=== PATIENT | female | born 1935 | race Caucasian/White ===

== ENCOUNTER 2022-02-18 07:32 | Outpatient (CLI) | payer MEDICARE, SELFPAY ==
--- NOTE | 2022-02-18 08:01 | ECG_ITS ---
Measurements Intervals [place] Rate: 78 P: 20 MD: 132 QRS: -33 QRSD: 142 T: 101 QT: 410 QTc: 469 Interpretive Statements SINUS RHYTHM ATRIAL PREMATURE COMPLEX LEFT AXIS DEVIATION LEFT BUNDLE BRANCH BLOCK BASELINE ARTIFACT- II, III, AVR, AVF ABNORMAL ECG NO PREVIOUS ECG AVAILABLE FOR COMPARISON Electronically Signed On 02-18-2022 9:07:27 MEDICAL SECRETARY TEACHER by Rufus Fletcher D.O.
--- NOTE | 2022-02-18 08:01 | ECHO_ITS ---
Patient Info Name: Mallory Harrell Age: 86 years : 1935 Gender: Female Ht: 60 in Wt: 167 lbs BSA: 1.82 m2 HR: 88 bpm BP: 141 / 72 mmHg Technical Quality: Good Exam Date: 02/18/2022 8:43 AM Exam Location: [facility] Patient Status: Outpatient Admit Date: 02/18/2022 Staff Ordering Physician: Jayde Reyes Associate Account Director: Elias Brock RDCS, RT Attending Provider: Jayde Reyes Referring Physician: Amy IRVIN; Exam Type: CA echo doppler color flow Study Info Indications R07.9 - Chest pain, unspecified Complete two-dimensional, color flow and Doppler transthoracic echocardiogram is performed. Strain analysis performed. Summary 1. Complete two-dimensional, color flow and Doppler transthoracic echocardiogram is performed. 2. Left ventricular chamber dimension is normal. 3. Left ventricular systolic function is normal, estimated at 60-65%. 4. There is mildly increased left ventricular wall thickness. 5. The left ventricular diastolic function is grade I diastolic dysfunction. 6. E/e' 8 is minimally elevated. 7. Global longitudinal strain is abnormal at -10.2%. 8. Mild pulmonary hypertension, estimated pulmonary arterial systolic pressure is 40 mmHg. Left Ventricle E/e' 8 is minimally elevated. Global longitudinal strain is abnormal at -10.2%. Left ventricular chamber dimension is normal. Left ventricular systolic function is normal, estimated at 60-65%. There is mildly increased left ventricular wall thickness. The left ventricular diastolic function is grade I diastolic dysfunction. Right Ventricle Right ventricular systolic function is normal and with normal TAPSE 1.8 cm. Right ventricular chamber dimension is normal. Left Atria Left atrial chamber dimension is normal. Right Atria Right atrial chamber dimension is normal. Aortic Valve The aortic valve is trileaflet. There is no aortic valve stenosis. There is no aortic valve regurgitation. Pulmonic Valve There is no pulmonic regurgitation. Mitral Valve There is no mitral valve stenosis. There is no mitral valve regurgitation. Tricuspid Valve There is no tricuspid valve regurgitation. Mild pulmonary hypertension, estimated pulmonary arterial systolic pressure is 40 mmHg. Pericardium/Pleural There is no pericardial effusion. Inferior Vena Cava Normal inferior vena cava with >50% collapse upon inspiration consistent with normal right atrial pressure, 5 mmHg. Aorta The aortic root size at the sinus of Valsalva is normal. Left Ventricular Outflow Tract Name Value Normal LVOT 2D LVOT Diameter 1.9 cm LVOT Doppler LVOT Peak Gradient 6 mmHg LVOT Mean Gradient 4 mmHg LVOT VTI 22 cm LVOT VTI/AV VTI Ratio 0.8 LVOT Stroke Volume 64 ml LVOT CO 5.8 l/min LVOT CI 3.2 l/min/m2 Mitral Valve Name
== END 2022-02-18 07:33 | disposition home or self-care (01) ==
LOC: ANHCARD 07:35
PROVIDERS: PCP Family Medicine; Visit Provider Nurse Practitioner Family
DX: R07.89 Other chest pain (principal); R06.02 Shortness of breath; I44.7 Left bundle-branch block, unspecified
CPT/HCPCS: 93005; 93306

== ENCOUNTER 2022-02-24 13:37 | Outpatient (CLI) | payer MEDICARE, SELFPAY ==
--- NOTE | ~2022-02-24 | CT_ITS ---
EXAMINATION: CT abdomen pelvis w con DATE: 02/24/2022 14:11 INDICATION: Intermittent generalized abdominal pain and bloating for years. TECHNIQUE: Computed tomography (CT) of the abdomen and pelvis was performed with 100 CC Omnipaque 350 intravenous contrast. Automated exposure control and iterative reconstruction technique were employe d. Exam dose: 839.69 mGy-cm total exam DLP. COMPARISON: 09/16/2010 complete abdominal ultrasound examination FINDINGS: There is atelectasis and/or consolidation at the base of the right lower lobe. Mild infiltrate or atelectasis in the posterior lower lingula. Discoid atelectasis at the base of the left lower lobe and to a lesser extent middle lobe. Bilateral calcified pulmonary granulomas. Numerous calcified splenic granulomas and a few calcified h epatic granulomas. Cardiomegaly. No pericardial effusion. Slight right pleural effusion. Small sliding hiatal hernia. Diffuse hepatic steatosis. No hepatic space-occupying mass lesion is detected. Status post cholecystectomy. No bile duct or pancreatic duct dilatation. No pancreatic mass lesion. The adrenal glands are unremarkable. 1.7 cm lower pole left renal cyst. 10 mm exophytic lower pole left renal cyst. The kidneys are otherw ise unremarkable. No urinary tract calculus or hydroureteronephrosis. The urinary bladder is evacuate d and not optimally evaluated as result. Uterus and adnexal areas are unremarkable. There is extensive calcification of the abdominal aorta and at the origins of the celiac and superior mesenteric and renal and inferior mesenteric arteries. No abdominal aortic aneurysm. No intraperiton eal or retroperitoneal or pelvic mass lesion or adenopathy or ascites. There are mild bilateral fat containing inguinal hernias and small fat-containing umbilical hernia. Diverticulosis of the sigmoid colon; no CT evidence of diverticulitis. No bowel obstruction, bowel wa ll thickening, pneumatosis or intraperitoneal free air. The appendix is not identified. No suspicious osteolytic or osteoblastic lesions are noted. Diffuse idiopathic skeletal hyperostosis of the thoracic spine. Prominent burst fracture deformity of T12, which appears chronic. There is severe degenerative disc d isease of the lumbar and lumbosacral spine. Bilateral hip osteoarthritis. IMPRESSION: Atelectasis and/or consolidation at the lung bases Cardiomegaly Small sliding hiatal hernia Hepatic steatosis Status post cholecystectomy and probable appendectomy 1.7 cm and 1 cm left renal cysts Diverticulosis of sigmoid colon; no evidence of diverticulitis Prominent burst fracture deformity of T12, likely chronic Reviewed, dictated and finalized at [facility]. Reviewed, dictated and finalized at [facility]. ESMITH
[2022-02-24 14:07] LABS: Estimated Glomerular Filt Rate > 60
== END 2022-02-24 13:38 | disposition home or self-care (01) ==
LOC: ANHIMG 13:38
PROVIDERS: PCP Family Medicine; Visit Provider Family Medicine
DX: R14.0 Abdominal distension (gaseous) (principal); R10.84 Generalized abdominal pain; R91.8 Other nonspecific abnormal finding of lung field; I51.7 Cardiomegaly; K76.0 Fatty (change of) liver, not elsewhere classified; Z90.49 Acquired absence of other specified parts of digestive tract; K57.30 Diverticulosis of large intestine without perforation or abscess without bleeding; S22.081A Stable burst fracture of T11-T12 vertebra, initial encounter for closed fracture; X58.XXXA Exposure to other specified factors, initial encounter
CPT/HCPCS: 74177; Q9967

== ENCOUNTER 2023-07-10 14:34 | Outpatient (CLI) | payer MEDICARE, SELFPAY | END 2023-07-10 14:35 | disposition home or self-care (01) | LOC: ANHAUDASC 14:35 | PROVIDERS: PCP Family Medicine; Visit Provider Nurse Practitioner Family | DX: H90.3 Sensorineural hearing loss, bilateral (principal) | CPT/HCPCS: 92557; 92567 ==

== ENCOUNTER 2024-04-15 15:48 | Inpatient (IN) | payer MEDICARE, SELFPAY ==
[2024-04-15] VITALS (7 sets, daily range): BP systolic 108–160; BP diastolic 56–84; PULSE 81–102; RESP 15–35; TEMP 36.6; O2SAT 85–100; BMI 25.0
--- NOTE | ~2024-04-15 | XR_ITS ---
Portable chest x-ray Comparison: 04/15/2024 Clinical History: Decreased air movement Findings: Jbqfy-ma-zniogdwj right pleural effusion present. There is prominence of the central pulmo nary vasculature. Left lung otherwise clear. Cardiomediastinal silhouette is stable. Bones and soft tissues are unremarkable. Impression: Small to moderate pleural effusion. Pulmonary artery hypertension versus central venous congestive change. Reviewed, dictated and finalized at location . 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 Pulmonary artery hypertension versus central venous congestive change.
--- NOTE | ~2024-04-15 | CT_ITS ---
Non-contrast Head CT History: Mental status change Technique: Axial non-contrast imaging of the brain was performed. Dose reduction technique was used on this scan by utilizing automated exposure control and iterative reconstruction technique. The dose -length product (DLP) was 681.00 mGy-cm. Findings: There is no evidence of intracranial hemorrhage, mass lesion, or acute infarct. Brain par enchyma appears normal. The ventricles and subarachnoid spaces are normal in size. The calvarium ap pears normal. There is opacification of the left maxillary sinus. The remaining visualized paranasal sinuses and mastoid air cells are clear. Impression: No intracranial abnormality seen. Left maxillary sinus disease. Reviewed, dictated and finalized at location . 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 Left maxillary sinus disease.
--- NOTE | ~2024-04-15 | XR_ITS ---
Portable chest x-ray Comparison: 04/18/2024 Clinical History: Right effusion Findings: Bjfhe-tw-lmctrvoi right pleural effusion present. Large calcified left basilar pulmonary n odule present. There is prominence of the central pulmonary vasculature. Cardiomediastinal silhouett e is stable. Bones and soft tissues are unremarkable. Impression: Fjbjr-fc-tvgkhhtp right pleural effusion. Pulmonary artery hypertension versus central venous congestive change. Stable calcified left basilar pulmonary nodule. Reviewed, dictated and finalized at [facility]. K PILOT Impression: Daxjf-ab-izrbvvsi right pleural effusion. Pulmonary artery hypertension versus central venous congestive change. Stable calcified left basilar pulmonary nodule.
--- NOTE | ~2024-04-15 | XR_ITS ---
EXAMINATION: XR chest 2V DATE: 04/15/2024 16:35 INDICATION: Shortness of breath TECHNIQUE: frontal and lateral views of the chest were obtained. COMPARISON: Chest CT dated 04/13/2024 FINDINGS: Opacity in the posterior right lower lung zone corresponding to a m small right pleural effusion and collapse of the right middle and lower lobes as seen on prior CT. Calcified nodules within the collap sed right lower lobe as well as in the left lower lobe and calcified right hilar lymph nodes consiste nt with old granulomatous disease. No pulmonary edema or pneumonia in the left lung are aerated porti ons of the right lung. No pneumothorax or left-sided pleural effusion. Cardiomegaly. IMPRESSION: 1. Small right pleural effusion and collapse of the right middle and lower lobes. On the prior CT the re appears to be a low-density region centrally within the collapsed right lower lobe which raises hawkins spicion for either necrotic malignancy or infection with pulmonary abscess. Could consider diagnostic thoracentesis although the amount of fluid on prior CT appears relatively small. Would also consider further evaluation with bronchoscopy as there is occlusion of the bronchus intermedius on the prior CT. Reviewed, dictated and finalized at location B. O COMMUNICATIONS MECHANICIAN IMPRESSION: 1. Small right pleural effusion and collapse of the right middle and lower lobe s. On the prior CT there appears to be a low-density region centrally within th e collapsed right lower lobe which raises suspicion for either necrotic maligna ncy or infection with pulmonary abscess. Could consider diagnostic thoracentesi s although the amount of fluid on prior CT appears relatively small. Would also consider further evaluation with bronchoscopy as there is occlusion of the bro nchus intermedius on the prior CT.
--- NOTE | ~2024-04-15 | XR_ITS ---
EXAMINATION: XR chest 1V portable DATE: 04/18/2024 13:38 INDICATION: Cardiopulmonary disease. TECHNIQUE: A single frontal view of the chest was obtained. COMPARISON: Chest single view 04/18/2024 at 3:11 AM, chest CT 04/13/2024 FINDINGS: Calcified pulmonary nodules and calcified hilar lymph nodes are consistent with old granulo matous disease. Marcelo B-lines are noted, consistent with mild pulmonary edema. There are airspace op acities at the lung bases, right worse than left. There is a small right pleural effusion. No pneumot horax. Cardiomegaly is noted. Surgical clips in the right upper quadrant are likely from cholecystect mirian. IMPRESSION: 1. Mild pulmonary edema. 2. Small right pleural effusion. 3. Stable airspace opacities at the lung bases, worse than left, likely atelectasis. 4. Cardiomegaly. Reviewed, dictated and finalized at location B. AURANT RECRUITER IMPRESSION: 1. Mild pulmonary edema. 2. Small right pleural effusion. 3. Stable airspace opacities at the lung bases, worse than left, likely atelect asis. 4. Cardiomegaly.
--- NOTE | 2024-04-15 16:05 | ECG_ITS ---
Test Date: 2024-04-15 16:12:37 Measurements Intervals [place] Rate: 97 P: 47 DC: 130 QRS: 107 QRSD: 138 T: -26 QT: 380 QTc: 483 Interpretive Statements SINUS RHYTHM MARKED RIGHT AXIS DEVIATION [QRS AXIS > 100] INTRAVENTRICULAR CONDUCTION DELAY [130+ ms QRS DURATION] ANTERIOR MYOCARDIAL INFARCTION , POSSIBLY ACUTE [40+ ms Q WAVE AND/OR ST/T ABNORMALITY IN V3/V4] ACUTE IN No previous ECG available for comparison Electronically Signed On 04-16-2024 10:28:02 FOURDRINIER MACHINE OPERATOR by Roger Yousif M.D.
[2024-04-15 16:23] LABS: Basophils Absolute Auto 0.1 K/mm3 (0.0-0.1); Eosinophils Absolute Auto 0.1 K/mm3 (0-0.3); Eosinophils Percent Auto 1.7 % (0-4.4); Hematocrit 41.7 % (37.0-47.0); Hemoglobin 12.8 g/dL (12.0-15.0); Immature Granulocyte Absolute 0.03 K/mm3 (0.00-0.031); Immature Granulocyte Percent A 0.4 % (0-0.5); Lymphocytes Percent Auto 4.8 % (18.3-44.2); Mean Corpuscular HGB Conc 30.7 g/dl (32-36); Mean Corpuscular Volume 94.3 fl (80-100); Mean Platelet Volume 8.3 fl (7.4-10.4); Monocytes Percent Auto 11.8 % (2.6-8.5); Neutrophils Absolute Auto 6.7 K/mm3 (1.3-6.7); Neutrophils Percent Auto 80.3 % (45.5-73.1); Platelet Count Result 436 k/mm3 (150-375); Red Blood Count 4.42 M/mm3 (4.2-5.4); Red Cell Distribution Width 15.7 % (11.5-14.5); White Blood Count 8.3 K/mm3 (4.5-10.0)
[2024-04-15 16:35] LABS: Alanine Aminotransferase 15 U/L (6-35); Albumin Level 4.2 g/dL (3.5-5.1); Alkaline Phosphatase 72 U/L (38-126); Anion Gap 9 mmol/L (4-12); Aspartate Amino Transferase 32 U/L (14-36); Bilirubin,Total 0.5 mg/dL (0.2-1.3); Blood Urea Nitrogen 16 mg/dL (7-17); Calcium 9.1 mg/dL (8.4-10.2); Carbon Dioxide 34 mmol/L (22-30); Chloride 96 mmol/L (98-107); Estimated Glomerular Filt Rate > 60; Glucose 130 mg/dL (65-110); Lactic Acid Reflex 1.5 mmol/L (0.7-2.0); Sodium 139 mmol/L (137-145)
[2024-04-15 17:43] LABS: Procalcitonin 0.1 ng/mL
[2024-04-15 17:46] LABS: Influenza A QL RT-PCR Negative (Negative); Influenza B QL RT-PCR Negative (Negative); RSV RNA, RT-PCR Negative (Negative); SARS-CoV-2 RNA PCR Negative (Negative)
--- NOTE | 2024-04-15 17:57 | ED.WEAKNESS ---
HPI - Weakness General Chief complaint: Weakness Stated complaint: weak Time Seen by Provider: 04/15/24 17:00 Source: patient and family Mode of arrival: ambulatory Limitations: no limitations History of Present Illness HPI Narrative: Patient is an 88-year-old female, with past medical history of COPD, who presents the ED with report of weakness and low oxygen. Patient is a resident of [facility]. She has been feeling intermittently short of breath over the last 1 week. Has been having pain throughout her right sided chest. Today was speaking with one of the nurses at the facility and said she did not feel well. They checked her oxygen and this was low. They then sent her here for further evaluation. Patient denies previous oxygen requirement. Has had a recent cough. Had a CT scan of her chest performed 2 days ago which showed a right-sided pleural effusion, possibly loculated. There was also comment on chronic granulomatosis disease. Related Data Home Medications ?Medication ?Instructions ?Recorded ?Confirmed ?Last Taken ?Type lisinopril 5 mg tablet 5 mg PO DAILY 09/04/22 04/15/24 Unknown History metoprolol succinate 25 mg 25 mg PO DAILY 09/04/22 04/15/24 Unknown History tablet,extended release 24 hr Allergies Allergy/AdvReac Type Severity Reaction Status Date / Time clarithromycin Allergy Unknown Unknown Verified 10/13/23 11:18 Review of Systems Review of Systems: All systems reviewed & are unremarkable except as noted in HPI. All systems reviewed & are unremarkable except as noted in HPI and below PMFSH Past Medical History Medical History Insomnia Hypertension, essential COPD (chronic obstructive pulmonary disease) Hard of hearing Pulmonary hypertension B12 deficiency Social History Social History Smoking status: Current some day smoker Tobacco type: cigarettes Additional smoking assessment comments: ONLY A COUPLE OF TIMES PER MONTH Alcohol intake: never Substance use: never Do You Feel Safe in your Home?: Yes Lack of Transportation: No Lack of Food: Never True Current Housing: I Have Housing Concerned About Future Housing: No Difficulty Paying Gas/Electric Bills: No Difficulty Paying for Meds: No Currently Unemployed: No Education: High School Diploma/GED Difficulty w/ Childcare or Family Care: No Living arrangements: alone Spiritual care concerns: No Exam Narrative: GENERAL: Elderly, but well appearing, well-nourished, non-toxic, in mild acute distress. HEAD: Normocephalic, atraumatic. RESPIRATORY: Airway patent, respirations mildly tachypneic. Decreased lung sounds in R middle and lower lobe. Rhonchi in R middle lobe region. No significant wheezing. CARDIOVASCULAR: Borderline tachycardic with regular rhythm without murmurs, rubs, or gallops. ABDOMINAL: Soft, nontender, nondistended. Normoactive BS. MUSCULOSKELETAL: Moves all extremities. No gross deformities. TTP along R lower lateral rib cage. SKIN: Warm, dry, normal color. NEURO: A&O X3. Speech clear. No ataxic movements. PSYCHIATRIC: Appropriate mood and affect. Normal interaction. Course Vital Signs Vital signs: Vital Signs Temperature 97.8 F 04/15/24 15:49 Pulse Rate 98 04/15/24 15:49 Respiratory Rate 16 04/15/24 15:49 Blood Pressure 159/64 H 04/15/24 15:49 Pulse Oximetry 85 L 04/15/24 15:49 Oxygen Delivery Room Air 04/15/24 15:49 Temperature 98 F 04/15/24 22:25 Pulse Rate 106 H 04/16/24 00:00 Respiratory Rate 20 04/15/24 23:24 Blood Pressure 154/67 H 04/15/24 22:25 Pulse Oximetry 99 04/15/24 23:24 Oxygen Delivery Nasal Cannula 04/15/24 23:24 Oxygen Flow Rate 2 04/15/24 23:24 MDM - Weakness MDM Narrative Medical decision making narrative: Patient presented to ED with weakness, hypoxia. Had abnormal CT scan of chest 2 days ago which showed right-sided pleural effusion. Patient was noted to be hypoxic on room air today upon arrival down to 85%. She was placed on 2 L nasal cannula. No previous oxygen requirement. Upon my evaluation, patient was still hypoxic on 2 L down to 86-87%. Increased to 3L. Tolerating this. Chest x-ray today shows right-sided pleural effusion with collapse of right middle and lower lobes. In comparison to recent CT, raised suspicion for necrotic malignancy or pulm abscess. Recommended diagnostic thoracentesis versus bronchoscopy. Laboratory studies are otherwise fairly unremarkable. No leukocytosis. Procalcitonin is within normal range. CRP is minimally elevated to 3.8. Lactic acid within normal range. Low suspicion for pulmonary abscess based on these findings. Viral swabs are negative. Discussed imaging findings with patient and family at bedside (granddaughter at bedside, daughter via phone). Patient reports that she does not want to find out if she has cancer. She does not want any further testing for this. She states if it is her time to go, then she is ready. She is alert & oriented times X 4 and of sound mind, capable of making her own decisions. She is adamant that she does not want any further workup or treatment. She desires to be a DNR/DNI. I discussed this at length with patient. I discussed that without treatment or management of this pleural effusions/collapse, she will likely not improve and will likely require oxygen for the rest of her life. She voiced understanding of this. She again is alert & oriented x4 and family does support her wishes. Patient is currently residing in an independent living facility. She will likely need higher level of care with now required oxygen. She had difficulty even standing at bedside in the ED w/o becoming increasingly hypoxic and dizziness. Will also need home O2 at long term. I discussed with care coordination team, who advised will need prior authorization for full long term care, recommended admission for completion of workup. We did discuss with respiratory therapy, who advised they do not typically perform home O2 evaluation/walking tests through the ED. Would not be able to perform this tonight. Discussed case with Cristel Overton ASSISTANT SURVEYOR hospitalist, accepted patient for admission. Patient and family in agreement with plan. Will have care coordination consulted for advanced directives, long term placement, home O2, and potentially hospice referral. Medical Records Attestation: I reviewed the patient's medical records. Lab Data Attestation: I reviewed the patient's lab results. 04/15/24 16:15 04/15/24 16:15 Labs: Lab Results 04/15/24 04/15/24 04/15/24 Range/Units 02:22 16:14 16:15 WBC 8.3 (4.5-10.0) K/mm3 RBC 4.42 (4.2-5.4) M/mm3 Hgb 12.8 (12.0-15.0) g/dL Hct 41.7 (37.0-47.0) % MCV 94.3 (80-100) fl MCH 29.0 (26-34) pg MCHC 30.7 L (32-36) g/dl RDW 15.7 H (11.5-14.5) % Plt Count 436 H (150-375) k/mm3 MPV 8.3 (7.4-10.4) fl Immature Gran % (Auto) 0.4 (0-0.5) % Neut % (Auto) 80.3 H (45.5-73.1) % Lymph % (Auto) 4.8 L (18.3-44.2) % Kay % (Auto) 11.8 H (2.6-8.5) % Eos % (Auto) 1.7 (0-4.4) % Baso % (Auto) 1.0 (0.2-1.2) % Lymph # (Auto) 0.40 L (0.9-3.2) K/mm3 Kay # (Auto) 1.0 H (0.1-0.6) K/mm3 Eos # (Auto) 0.1 (0-0.3) K/mm3 Baso # (Auto) 0.1 (0.0-0.1) K/mm3 Abs Immat Gran (auto) 0.03 (0.00-0.031) K/mm3 Absolute Neuts (auto) 6.7 (1.3-6.7) K/mm3 Absolute Nucleated RBC 0.000 (0.0-0.012) K/mm3 Nucleated RBC % 0.0 (0.0-0.2) % Sodium 139 (137-145) mmol/L Potassium 4.0 (3.4-5.0) mmol/L Chloride 96 L (98-107) mmol/L Carbon Dioxide 34 H (22-30) mmol/L Anion Gap 9 (4-12) mmol/L BUN 16 (7-17) mg/dL Creatinine 0.59 L (0.7-1.0) mg/dL Estim Creat Clear Calc Not Reportable Estimated GFR > 60 (59 - ) Glucose 130 H (65-110) mg/dL Lactic Acid 1.5 (0.7-2.0) mmol/L Calcium 9.1 (8.4-10.2) mg/dL Total Bilirubin 0.5 (0.2-1.3) mg/dL AST 32 (14-36) U/L ALT 15 (6-35) U/L Alkaline Phosphatase 72 (38-126) U/L C-Reactive Protein 3.8 H (<1.0) mg/dL Total Protein 8.0 (6.3-8.2) g/dL Albumin 4.2 (3.5-5.1) g/dL Procalcitonin 0.1 ng/mL Urine Color Yellow (Yellow) Urine Appearance Clear (Clear) Urine pH 5.5 (5.0-9.0) Ur Specific [place] 1.020 (1.001-1.035) Urine Protein 1+ H (Negative) mg/dL Urine Glucose (UA) Negative (Negative) mg/dL Urine Ketones Trace H (Negative) mg/dL Ur Blood (Man) Trace (Negative) Urine Nitrate Negative (Negative) Urine Bilirubin Negative (Negative) Urine Urobilinogen 0.2 (<2.0) mg/dL Leukocyte Esterase Rfl Negative (Negative) ALISIA/UL Urine RBC 3-5 H (0-2) /hpf Urine WBC 0-5 (0-3) /hpf Ur Squamous Epith Cells None seen (Few) /hpf Urine Bacteria None seen /hpf Urine Casts 3-5 Influenza A (RT-PCR) (Negative) Influenza B (RT-PCR) (Negative) RSV (RT-PCR) (Negative) SARS-CoV-2 RNA (RT-PCR) (Negative) 04/15/24 Range/Units 17:05 WBC (4.5-10.0) K/mm3 RBC (4.2-5.4) M/mm3 Hgb (12.0-15.0) g/dL Hct (37.0-47.0) % MCV (80-100) fl MCH (26-34) pg MCHC (32-36) g/dl RDW (11.5-14.5) % Plt Count (150-375) k/mm3 MPV (7.4-10.4) fl Immature Gran % (Auto) (0-0.5) % Neut % (Auto) (45.5-73.1) % Lymph % (Auto) (18.3-44.2) % Kay % (Auto) (2.6-8.5) % Eos % (Auto) (0-4.4) % Baso % (Auto) (0.2-1.2) % Lymph # (Auto) (0.9-3.2) K/mm3 Kay # (Auto) (0.1-0.6) K/mm3 Eos # (Auto) (0-0.3) K/mm3 Baso # (Auto) (0.0-0.1) K/mm3 Abs Immat Gran (auto) (0.00-0.031) K/mm3 Absolute Neuts (auto) (1.3-6.7) K/mm3 Absolute Nucleated RBC (0.0-0.012) K/mm3 Nucleated RBC % (0.0-0.2) % Sodium (137-145) mmol/L Potassium (3.4-5.0) mmol/L Chloride (98-107) mmol/L Carbon Dioxide (22-30) mmol/L Anion Gap (4-12) mmol/L BUN (7-17) mg/dL Creatinine (0.7-1.0) mg/dL Estim Creat Clear Calc Estimated GFR (59 - ) Glucose (65-110) mg/dL Lactic Acid (0.7-2.0) mmol/L Calcium (8.4-10.2) mg/dL Total Bilirubin (0.2-1.3) mg/dL AST (14-36) U/L ALT (6-35) U/L Alkaline Phosphatase (38-126) U/L C-Reactive Protein (<1.0) mg/dL Total Protein (6.3-8.2) g/dL Albumin (3.5-5.1) g/dL Procalcitonin ng/mL Urine Color (Yellow) Urine Appearance (Clear) Urine pH (5.0-9.0) Ur Specific [place] (1.001-1.035) Urine Protein (Negative) mg/dL Urine Glucose (UA) (Negative) mg/dL Urine Ketones (Negative) mg/dL Ur Blood (Man) (Negative) Urine Nitrate (Negative) Urine Bilirubin (Negative) Urine Urobilinogen (<2.0) mg/dL Leukocyte Esterase Rfl (Negative) ALISIA/UL Urine RBC (0-2) /hpf Urine WBC (0-3) /hpf Ur Squamous Epith Cells (Few) /hpf Urine Bacteria /hpf Urine Casts Influenza A (RT-PCR) Negative (Negative) Influenza B (RT-PCR) Negative (Negative) RSV (RT-PCR) Negative (Negative) SARS-CoV-2 RNA (RT-PCR) Negative (Negative) Imaging Data Attestation: I personally reviewed and interpreted this imaging study as follows: Radiologist's impression: ITS Impressions Chest X-Ray 04/15/24 16:37 IMPRESSION: 1. Small right pleural effusion and collapse of the right middle and lower lobes. On the prior CT there appears to be a low-density region centrally within the collapsed right lower lobe which raises suspicion for either necrotic malignancy or infection with pulmonary abscess. Could consider diagnostic thoracentesis although the amount of fluid on prior CT appears relatively small. Would also consider further evaluation with bronchoscopy as there is occlusion of the bronchus intermedius on the prior CT. ECG Data EKG #1: Attestation: I personally reviewed and interpreted this ECG as follows: ECG completion date: 04/15/24 ECG completion time: 16:12 EKG Interpretation: normal rate (97), sinus rhythm, non-specific ST changes and other (some baseline wander) Discharge Plan Discharge Clinical Impression: Acute hypoxic respiratory failure, Pleural effusion, Collapse of right lung Patient Disposition: Still a Patient Condition: Guarded Prognosis
[2024-04-15] MEDS: HYDROcodone/acetaminophen (*CRX) 5-325 MG TABLET 1 TAB PO (18:14)
[2024-04-15 18:25] LABS: CRP 3.8 mg/dL (<1.0)
--- NOTE | 2024-04-15 18:33 | PC.NURSE ---
patient asked for urine and reports that she will attempt later but denies being straight cath at this time.
--- NOTE | 2024-04-15 19:59 | PC.NURSE ---
Patient asked if she can urinate and states I will go when I am ready. Patient refused straight catheterization.
--- NOTE | 2024-04-15 20:16 | P.HP_ITS ---
H&P: HPI History of Present Illness Date/Time: 04/15/24 20:16 Chief Complaint: Weakness Narrative: 88 y/o F presents here with intermittent weakness with PMH of COPD, insomnia, hypertension, pulmonary hypertension, and vitamin B12 deficiency. The patient presents here from [facility] ([facility]) with intermittent weakness. Symptoms have been ongoing for the past week. Weakness is accompanied by hypoxia, intermittent right sided chest pain, and cough that has scant production. She alerted the staff to her symptoms and her vital signs were checked. Patient was noted to be hypoxic and prompting the patient to be sent to the emergency department. She has no previous O2 requirement. Of note, the patient had a CT of the chest done on 04/13 which showed a moderate right pleural effusion that is possibly loculated and a small pericardial effusion. Initial VS at presentation: 97.8? F, HR 98, RR 16, 159/64, and 85% on room air. ED workup showed: No leukocytosis, no anemia, platelet count 436, creatinine 0.59 and GFR >60, glucose 130, CRP 3.8, lactic 1.5, procalcitonin 0.1, and viral PCR negative. CXR showed a small right pleural effusion and collapse of the right middle and lower lobes. On the prior CT there appears to be a low-density region centrally within the collapsed right lower lobe which raises suspicion for either necrotic malignancy or infection with pulmonary abscess. Could consider diagnostic thoracentesis although the amount of fluid on prior CT appears relatively small. Would also consider further evaluation with bronchoscopy as there is occlusion of the bronchus intermedius on the prior CT. Review of Systems Review of Systems: All systems reviewed & are unremarkable except as noted in HPI and below [facility] Past Medical History Medical History (Updated 04/15/24 @ 20:29 by Cristel Overton APRN) Insomnia Hypertension, essential COPD (chronic obstructive pulmonary disease) Hard of hearing Pulmonary hypertension B12 deficiency Social History Social History Smoking status: Current some day smoker Tobacco type: cigarettes Alcohol intake: never Do You Feel Safe in your Home?: Yes Lack of Transportation: No Lack of Food: Never True Current Housing: I Have Housing Concerned About Future Housing: No Difficulty Paying Gas/Electric Bills: No Difficulty Paying for Meds: No Currently Unemployed: No Difficulty w/ Childcare or Family Care: No Living arrangements: alone Meds Home Medications and Allergies Home Medications ?Medication ?Instructions ?Recorded ?Confirmed ?Type diphenoxylate-atropine 2.5 1 tablet PO TID PRN diarrhea #20 04/06/19 10/13/23 Rx mg-0.025 mg tablet (Lomotil) tabs colestipol 5 gram oral granules 5 g PO DAILY diarrhea #500 grams 02/06/22 10/13/23 Rx (Colestid) lisinopril 5 mg tablet 5 mg PO DAILY 09/04/22 10/13/23 History metoprolol succinate 25 mg 25 mg PO DAILY 09/04/22 10/13/23 History tablet,extended release 24 hr albuterol sulfate 90 mcg/actuation See Rx Instructions .Route 07/10/23 10/13/23 Rx aerosol inhaler .COMPLEX #9 grams meloxicam 15 mg tablet 15 mg PO DAILY back pain #30 tabs 12/16/23 Rx mecobalamin (vitamin B12) 1,000 1,000 mcg sublingual DAILY b12 02/19/24 Rx mcg disintegrating deficiency #90 tabs tablet,sublingual trazodone 50 mg tablet See Rx Instructions PO .HS 03/24/24 Rx insomnia #60 tabs budesonide 160 mcg-glycopyr 9 2 inh inhalation BID #10.7 grams 04/15/24 Rx mcg-formot 4.8 mcg/actuation HFA inhaler (Breztri Aerosphere) Allergies Allergy/AdvReac Type Severity Reaction Status Date / Time clarithromycin Allergy Unknown Unknown Verified 10/13/23 11:18 Vital Signs Vital Signs - 24 hr 04/15/24 15:49 04/15/24 16:04 04/15/24 16:04 Temperature 97.8 F Pulse Rate 98 102 H Respiratory Rate 16 Blood Pressure 159/64 H Pulse Oximetry 85 L 92 Oxygen Delivery Room Air Nasal Cannula Oxygen Flow Rate 2 04/15/24 18:15 04/15/24 19:59 Temperature Pulse Rate 93 86 Respiratory Rate 35 H 15 Blood Pressure 154/56 H 108/84 Pulse Oximetry 94 97 Oxygen Delivery Oxygen Flow Rate Exam Const: General: comfortable and no acute distress Other: , female, elderly, nontoxic appearance HENMT: Face/Nose/Sinus: Normal nares present Mouth: Yes moist mucous membranes Eyes: General: appearance normal, both eyes and all related structures Sclera: sclerae normal Pupils: Equal, round and reactive pupils present EOM: EOMs intact bilaterally Resp: Effort & Inspection: normal respiratory effort Other: Decreased breath sounds in the right lower lobe and right middle lobe. No other adventitious lung sounds. Cardio: Rate: regular rate Rhythm: regular rhythm Other: S1-S2 present without murmur, rub, ectopy GI: Other: Abdomen soft, nondistended, nontender. Normoactive bowel sounds in all quadrants. Skin: General skin exam: normal color and no rashes or lesions noted Wou nds: no wounds Neuro: Speech: normal speech Motor exam (neuro): 5/5 motor strength present throughout Sensory Exam: normal sensation Other: A&O x4 Extrem: General: normal to inspection Psych: Mental Status: mental status grossly normal Affect: normal affect Other: Good insight and judgment, pleasant H&P: Results Labs Labs: Short CBC 04/15/24 Range/Units 16:15 WBC 8.3 (4.5-10.0) K/mm3 Hgb 12.8 (12.0-15.0) g/dL Hct 41.7 (37.0-47.0) % Plt Count 436 H (150-375) k/mm3 BMP 04/15/24 16:15 Sodium 139 Potassium 4.0 Chloride 96 L Carbon Dioxide 34 H BUN 16 Creatinine 0.59 L Glucose 130 H Calcium 9.1 Liver Function 04/15/24 Range/Units 16:15 Total Bilirubin 0.5 (0.2-1.3) mg/dL AST 32 (14-36) U/L ALT 15 (6-35) U/L Alkaline Phosphatase 72 (38-126) U/L Albumin 4.2 (3.5-5.1) g/dL Assessment and Plan Assessment and plan (1) Collapse of right lung: Code(s): J98.11 - Atelectasis Status: Acute Assessment and Plan: - CXR (04/15): Small right pleural effusion and collapse of the right middle and lower lobes. On the prior CT there appears to be a low-density region centrally within the collapsed right lower lobe which raises suspicion for either necrotic malignancy or infection with pulmonary abscess. Could consider diagnostic thoracentesis although the amount of fluid on prior CT appears relatively small. Would also consider further evaluation with bronchoscopy as there is occlusion of the bronchus intermedius on the prior CT. - CT chest (04/13): 1. Moderate right pleural effusion, possibly loculated. 2: Small pericardial effusion. - care coordination consulted - will need home O2 evaluation Patient was notified of the chest x-ray results in the emergency department. Patient has elected to forego further testing or treatment, including antibiotics, for these findings. She would like to be set up with hospice care. Attempts were made in the emergency department to set the patient up with home O2 to go back to the independent living side, however concerns were raised that she may not be able to maneuver with the home oxygen. Therefore she has been admitted for possible placement and oxygen. Plan Patient unsure of her daily medications. Reviewed medication list from long term report on 08/18/2023, patient believes it is correct. May need further verification. Diet: Regular GI Prophylaxis: Not currently indicated DVT Prophylaxis: Not currently indicated Lines: Peripheral Code Status: DNR Quality If No VTE Prophylaxis Answer both mechanical and pharmacologic: Reason no mechanical VTE proph: low risk/not indicated Reason no pharmacologic proph: low risk/not indicated Hospitalist MIPS Advance Care Plan I have confirmed that the patient's Advanced Care Plan is present, code status is documented, or surrogate decision maker is listed in patient medical record.: Yes Medication Reconciliation I have utilized all available resources to obtain, update and review the patients current medications (includes all prescriptions, OTC, herbals, cannabis, and nutritional supplements).: Yes
--- NOTE | 2024-04-15 22:47 | ADMGEN ---
This patient, Mallory Harrell, was admitted to [facility] Surg Room 321-02. Patient/family oriented to hospital policies and general routines including ID bracelet, bed and alarms, visiting hours, pain management, procedures, bathroom and other care routines, personal items, smoking policy, room service/diet, and visiting hours. Information on how to activate the Rapid Response Team has been discussed. Patient/Family are encouraged to report perceived risks to care and to ask questions if they do not understand what they are told or what they should do.
[2024-04-16] VITALS (17 sets, daily range): BP systolic 117–145; BP diastolic 45–56; PULSE 70–106; RESP 18–24; TEMP 36.8–37.7; O2SAT 87–100
[2024-04-16 02:38] LABS: Add Urine Microscopic? YES; Appearance Urine Clear (Clear); Bacteria Urine None Seen /hpf; Bilirubin Urine Negative (Negative); Blood Urine Trace (Negative); Color Urine Yellow (Yellow); Glucose Urine UA Negative (Negative); Ketones Urine Trace mg/dL (Negative); Leukocyte Esterase Ur Negative LEU/UL (Negative); Nitrate Urine Negative (Negative); Protein Urine 1+ mg/dL (Negative); Squamous Epithelial Cell Urine None Seen /hpf (Few); Urobilinogen Urine 0.2 mg/dL (<2.0); WBC Urine 0-5 /hpf (0-3); pH Urine 5.5 (5.0-9.0)
[2024-04-16] MEDS: ALBUTEROL SULFATE (*SP) AEROSOL 1 PUFF 2 PUFF INHALATION (05:18)
[2024-04-16] MEDS: FLUTICASONE/UMECLIDIN/VILANTER 100-62.5-25 MCG ELLIPTA 1 PUFF INHALATION (09:08)
[2024-04-16] MEDS: MORPHINE SULFATE (*CRX) 2 MG/ML INJ IV PUSH (10:29)
[2024-04-16] MEDS: METOPROLOL SUCCINATE EXT REL 25 MG TABCR PO (10:32)
[2024-04-16] MEDS: lisinopriL 5 MG TABLET PO (10:33)
[2024-04-16] MEDS: CYANOCOBALAMIN 1,000 MCG TABLET 1000 MCG PO (10:33)
--- NOTE | 2024-04-16 10:40 | P.PNIM_ITS ---
Progress Note: A&P Assessment and Plan (1) Collapse of right lung: Code(s): J98.11 - Atelectasis Status: Acute Assessment and Plan: - CXR (04/15): Small right pleural effusion and collapse of the right middle and lower lobes. On the prior CT there appears to be a low-density region centrally within the collapsed right lower lobe which raises suspicion for either necrotic malignancy or infection with pulmonary abscess. Could consider diagnostic thoracentesis although the amount of fluid on prior CT appears relatively small. Would also consider further evaluation with bronchoscopy as there is occlusion of the bronchus intermedius on the prior CT. - CT chest (04/13): 1. Moderate right pleural effusion, possibly loculated. 2: Small pericardial effusion. - Sa02 95% on 2 liters nasal cannula. - Supervisor Hardboard Dr. Vizcarra with recommendations to start Zosyn, Vancomycin, Cornet Valve, 3% saline inhaled 3 times a day, and Duoneb to see if patient has infection that improves. All recommendations ordered. (2) COPD (chronic obstructive pulmonary disease): Qualifiers: COPD type: unspecified COPD Qualified Code(s): J44.9 - Chronic obstructive pulmonary disease, unspecified Code(s): J44.9 - Chronic obstructive pulmonary disease, unspecified Status: Inactive Assessment and Plan: * Duonebs * Cornet Valve (3) T12 burst fracture: Code(s): S22.081A - Stable burst fracture of T11-T12 vertebra, initial encounter for closed fracture Status: Chronic Assessment and Plan: * Pain control * PT/OT (4) Hypertension: Code(s): I10 - Essential (primary) hypertension Status: Acute Assessment and Plan: * Continue Lisinopril 5 mg PO daily and Metoprolol 25 mg PO qam. * Current blood pressure is 136/56. Plan Patient unsure of her daily medications. Reviewed medication list from residential report on 08/18/2023, patient believes it is correct. May need further verification. Diet: Regular GI Prophylaxis: Not currently indicated DVT Prophylaxis: Not currently indicated Lines: Peripheral Code Status: DNR Subjective Date/time seen: 04/16/24 10:40 Interval history: Discussed with patient and family test results. I explained that I reviewed test with Supervisor Hardboard Dr. Vizcarra with recommendations to start Zosyn, Vancomycin, Cornet Valve, 3% saline inhaled 3 times a day, and Duoneb to see if patient has infection that improves. Family and patient decided that they would like treatment instead of hospice. Patient reports shortness of breath at times. Patient reports pain in back is a 7 , constant, and aching. Patient denies chest pain, palpitations, headache, dizziness, nausea, or vomiting. Review of Systems Review of Systems: All systems reviewed & are unremarkable except as noted in HPI and below Exam Const: General: no acute distress and uncomfortable Resp: Effort & Inspection: normal respiratory effort Other: Decreased breath sounds in the right lower lobe and right middle lobe. No other adventitious lung sounds. Cardio: Rate: regular rate Rhythm: regular rhythm Other: Telemetry- SR 85. GI: GI Palp: Yes Soft to palpation Auscultation: normal bowel sounds Skin: General skin exam: no rashes or lesions noted Neuro: Speech: normal speech Extrem: General: normal to inspection Psych: Mental Status: mental status grossly normal Affect: normal affect Objective Data Vital Signs Vital Signs: Vital Signs - 24 hr 04/15/24 15:49 04/15/24 16:04 04/15/24 16:04 Temperature 97.8 F Pulse Rate 98 102 H Respiratory Rate 16 Blood Pressure 159/64 H Pulse Oximetry 85 L 92 Oxygen Delivery Room Air Nasal Cannula Oxygen Flow Rate 2 Fraction of Inspired Oxygen 04/15/24 18:15 04/15/24 19:59 04/15/24 22:14 Temperature Pulse Rate 93 86 82 Respiratory Rate 35 H 15 15 Blood Pressure 154/56 H 108/84 160/78 H Pulse Oximetry 94 97 100 Oxygen Delivery Oxygen Flow Rate Fraction of Inspired Oxygen 04/15/24 22:25 04/15/24 23:24 04/16/24 00:00 Temperature 98 F Pulse Rate 81 81 106 H Respiratory Rate 20 20 Blood Pressure 154/67 H Pulse Oximetry 99 99 Oxygen Delivery Nasal Cannula Oxygen Flow Rate 2 Fraction of Inspired Oxygen 04/16/24 04:00 04/16/24 05:19 04/16/24 05:40 Temperature 99.8 F H Pulse Rate 91 94 89 Respiratory Rate 24 H 18 Blood Pressure 145/45 H Pulse Oximetry 96 Oxygen Delivery Oxygen Flow Rate Fraction of Inspired Oxygen 04/16/24 09:08 04/16/24 09:08 04/16/24 10:32 Temperature Pulse Rate 81 83 Respiratory Rate 20 Blood Pressure Pulse Oximetry 98 Oxygen Delivery Nasal Cannula Oxygen Flow Rate 3 Fraction of Inspired Oxygen 32 Intake/Output Intake/Output: Intake & Output 04/13/24 04/14/24 04/15/24 04/16/24 23:59 23:59 23:59 23:59 Intake Total 50 Balance 50 Meds/Results Medications: Active Medications Generic Name Dose Route Start Last Admin Trade Name Freq PRN Reason Stop Dose Admin Acetaminophen 650 mg 04/15/24 21:02 Acetaminophen 325 Mg Tablet PO Q6H PRN Mild Pain (1-3) or Fever Hydrocodone Bitart/Acetaminophen 1 tab 04/15/24 19:35 Hydrocodone/Acetaminophen (*Crx) 5-325 Mg Tablet PO Q4H PRN Pain Rated 4-6 Albuterol 2 puff 04/15/24 22:10 04/16/24 05:18 Albuterol Sulfate (*Sp) Aerosol 1 Puff INHALATION 2 puff Q6HRT PRN Administration Shortness Of Breath Colestipol HCl 5 gm 04/16/24 09:00 Colestipol Hcl 1 Gm Tablet PO DAILY GUILLERMO Cyanocobalamin 1,000 mcg 04/16/24 09:00 04/16/24 10:33 Cyanocobalamin 1,000 Mcg Tablet PO 1,000 mcg QAM GUILLERMO Administration Diphenoxylate HCl/Atropine 1 tablet 04/15/24 22:10 Diphenoxylate/Atropine (*Crx) 2.5 Mg Tablet PO PRN PRN Diarrhea Fluticasone/Umeclidinium/Vilanterol 1 puff 04/16/24 08:00 04/16/24 09:08 Fluticasone/Umeclidin/Vilanter 100-62.5-25 Mcg Ellipta INHALATION 1 puff DAILYRT GUILLERMO Administration Lisinopril 5 mg 04/16/24 09:00 04/16/24 10:33 Lisinopril 5 Mg Tablet PO 5 mg QAM GUILLERMO Administration Metoprolol Succinate 25 mg 04/16/24 09:00 04/16/24 10:32 Metoprolol Succinate Ext Rel 25 Mg Tabcr PO 25 mg QAM GUILLERMO Administration Morphine Sulfate 2 mg 04/15/24 21:02 04/16/24 10:29 Morphine Sulfate (*Crx) 2 Mg/Ml Inj IV PUSH 2 mg Q4H PRN Administration Pain Rated 7-10 Trazodone HCl 50 mg 04/15/24 22:10 Trazodone Hcl 50 Mg Tablet PO HS PRN Insomnia Radiology Results: ITS Impressions Chest X-Ray 04/15/24 16:37 IMPRESSION: 1. Small right pleural effusion and collapse of the right middle and lower lobes. On the prior CT there appears to be a low-density region centrally within the collapsed right lower lobe which raises suspicion for either necrotic malignancy or infection with pulmonary abscess. Could consider diagnostic thoracentesis although the amount of fluid on prior CT appears relatively small. Would also consider further evaluation with bronchoscopy as there is occlusion of the bronchus intermedius on the prior CT. Labs Labs: Laboratory Results - last 24 hr 04/15/24 04/15/24 04/15/24 02:22 16:14 16:15 WBC 8.3 RBC 4.42 Hgb 12.8 Hct 41.7 MCV 94.3 MCH 29.0 MCHC 30.7 L RDW 15.7 H Plt Count 436 H MPV 8.3 Immature Gran % (Auto) 0.4 Neut % (Auto) 80.3 H Lymph % (Auto) 4.8 L Merrick % (Auto) 11.8 H Eos % (Auto) 1.7 Baso % (Auto) 1.0 Lymph # (Auto) 0.40 L Merrick # (Auto) 1.0 H Eos # (Auto) 0.1 Baso # (Auto) 0.1 Abs Immat Gran (auto) 0.03 Absolute Neuts (auto) 6.7 Absolute Nucleated RBC 0.000 Nucleated RBC % 0.0 Sodium 139 Potassium 4.0 Chloride 96 L Carbon Dioxide 34 H Anion Gap 9 BUN 16 Creatinine 0.59 L Estim Creat Clear Calc Not Reportable Estimated GFR > 60 Glucose 130 H Lactic Acid 1.5 Calcium 9.1 Total Bilirubin 0.5 AST 32 ALT 15 Alkaline Phosphatase 72 C-Reactive Protein 3.8 H Total Protein 8.0 Albumin 4.2 Procalcitonin 0.1 Urine Color Yellow Urine Appearance Clear Urine pH 5.5 Ur Specific Boswell 1.020 Urine Protein 1+ H Urine Glucose (UA) Negative Urine Ketones Trace H Ur Blood (Man) Trace Urine Nitrate Negative Urine Bilirubin Negative Urine Urobilinogen 0.2 Leukocyte Esterase Rfl Negative Urine RBC 3-5 H Urine WBC 0-5 Ur Squamous Epith Cells None seen Urine Bacteria None seen Urine Casts 3-5 Influenza A (RT-PCR) Influenza B (RT-PCR) RSV (RT-PCR) SARS-CoV-2 RNA (RT-PCR) 04/15/24 17:05 WBC RBC Hgb Hct MCV MCH MCHC RDW Plt Count MPV Immature Gran % (Auto) Neut % (Auto) Lymph % (Auto) Merrick % (Auto) Eos % (Auto) Baso % (Auto) Lymph # (Auto) Merrick # (Auto) Eos # (Auto) Baso # (Auto) Abs Immat Gran (auto) Absolute Neuts (auto) Absolute Nucleated RBC Nucleated RBC % Sodium Potassium Chloride Carbon Dioxide Anion Gap BUN Creatinine Estim Creat Clear Calc Estimated GFR Glucose Lactic Acid Calcium Total Bilirubin AST ALT Alkaline Phosphatase C-Reactive Protein Total Protein Albumin Procalcitonin Urine Color Urine Appearance Urine pH Ur Specific Boswell Urine Protein Urine Glucose (UA) Urine Ketones Ur Blood (Man) Urine Nitrate Urine Bilirubin Urine Urobilinogen Leukocyte Esterase Rfl Urine RBC Urine WBC Ur Squamous Epith Cells Urine Bacteria Urine Casts Influenza A (RT-PCR) Negative Influenza B (RT-PCR) Negative RSV (RT-PCR) Negative SARS-CoV-2 RNA (RT-PCR) Negative Quality VTE Prophylaxis VTE prophylaxis: mechanical ordered
[2024-04-16] MEDS: COLESTIPOL HCL 1 GM TABLET 5 GM PO (12:04)
[2024-04-16] MEDS: PIPERACILLN/TAZ 3.375GM/NS50ML 3.375 GM/50 ML BAG IVPB ×2 (12:05→19:29)
[2024-04-16 12:09] LABS: Basophils Absolute Auto 0.1 K/mm3 (0.0-0.1); Basophils Percent Auto 1.2 % (0.2-1.2); Eosinophils Percent Auto 0.5 % (0-4.4); Hematocrit 36.9 % (37.0-47.0); Hemoglobin 11.1 g/dL (12.0-15.0); Immature Granulocyte Absolute 0.02 K/mm3 (0.00-0.031); Immature Granulocyte Percent A 0.4 % (0-0.5); Mean Corpuscular HGB Conc 30.1 g/dl (32-36); Mean Corpuscular Hemoglobin 28.7 pg (26-34); Mean Corpuscular Volume 95.3 fl (80-100); Mean Platelet Volume 8.5 fl (7.4-10.4); Monocytes Absolute Auto 1.3 K/mm3 (0.1-0.6); Monocytes Percent Auto 22.8 % (2.6-8.5); Neutrophils Absolute Auto 3.5 K/mm3 (1.3-6.7); Neutrophils Percent Auto 61.1 % (45.5-73.1); Platelet Count Result 357 k/mm3 (150-375); Red Blood Count 3.87 M/mm3 (4.2-5.4); Red Cell Distribution Width 15.6 % (11.5-14.5); White Blood Count 5.7 K/mm3 (4.5-10.0)
[2024-04-16 12:21] LABS: Alanine Aminotransferase 17 U/L (6-35); Albumin Level 3.7 g/dL (3.5-5.1); Alkaline Phosphatase 59 U/L (38-126); Anion Gap 6 mmol/L (4-12); Aspartate Amino Transferase 40 U/L (14-36); Bilirubin,Total 0.4 mg/dL (0.2-1.3); Blood Urea Nitrogen 22 mg/dL (7-17); Calcium 8.4 mg/dL (8.4-10.2); Carbon Dioxide 35 mmol/L (22-30); Chloride 96 mmol/L (98-107); Estimated CRCL calculation 49 ml/min; Estimated Glomerular Filt Rate > 60; Glucose 115 mg/dL (65-110); Potassium 4.2 mmol/L (3.4-5.0); Sodium 137 mmol/L (137-145)
[2024-04-16] MEDS: IPRATROPIUM 0.5 MG/ALBUTEROL SULFATE 2.5 MG AMPUL.NEB 3 ML INHALATION ×2 (14:35→21:03)
[2024-04-16] MEDS: SODIUM CHLOR 3% 15 ML NEB (RESPIRATORY THERAPY) 6 ML INHALATION ×2 (14:35→21:04)
[2024-04-16] MEDS: VANCOMYCIN 1,500 MG/NS 500 ML 1,500 MG/500 ML BAG 250 MG IVPB (15:28)
[2024-04-16] MEDS: SODIUM CHLORIDE 0.9% IV 1,000 ML 75 ML IV CONT (15:35)
[2024-04-16] MEDS: HYDROcodone/acetaminophen (*CRX) 5-325 MG TABLET 1 TAB PO (20:59)
[2024-04-17] VITALS (20 sets, daily range): BP systolic 98–132; BP diastolic 50–66; PULSE 67–141; RESP 19–24; TEMP 36.4–37.4; O2SAT 63–100
[2024-04-17] MEDS: PIPERACILLN/TAZ 3.375GM/NS50ML 3.375 GM/50 ML BAG IVPB ×4 (00:45→17:50)
[2024-04-17] MEDS: IPRATROPIUM 0.5 MG/ALBUTEROL SULFATE 2.5 MG AMPUL.NEB 3 ML INHALATION ×4 (01:46→19:36)
[2024-04-17] MEDS: HYDROcodone/acetaminophen (*CRX) 5-325 MG TABLET 1 TAB PO ×3 (03:42→23:15)
[2024-04-17] MEDS: SODIUM CHLOR 3% 15 ML NEB (RESPIRATORY THERAPY) 6 ML INHALATION ×2 (07:44→13:32)
[2024-04-17] MEDS: METOPROLOL SUCCINATE EXT REL 25 MG TABCR PO (09:04)
[2024-04-17] MEDS: COLESTIPOL HCL 1 GM TABLET 5 GM PO (09:04)
[2024-04-17 09:06] LABS: Basophils Absolute Auto 0.1 K/mm3 (0.0-0.1); Basophils Percent Auto 0.9 % (0.2-1.2); Eosinophils Percent Auto 0.6 % (0-4.4); Hematocrit 38.7 % (37.0-47.0); Hemoglobin 11.3 g/dL (12.0-15.0); Immature Granulocyte Absolute 0.02 K/mm3 (0.00-0.031); Immature Granulocyte Percent A 0.4 % (0-0.5); Lymphocytes Percent Auto 25.7 % (18.3-44.2); Mean Corpuscular HGB Conc 29.2 g/dl (32-36); Mean Corpuscular Hemoglobin 28.8 pg (26-34); Mean Corpuscular Volume 98.7 fl (80-100); Mean Platelet Volume 8.4 fl (7.4-10.4); Monocytes Absolute Auto 1.3 K/mm3 (0.1-0.6); Monocytes Percent Auto 23.2 % (2.6-8.5); Neutrophils Absolute Auto 2.7 K/mm3 (1.3-6.7); Neutrophils Percent Auto 49.2 % (45.5-73.1); Platelet Count Result 343 k/mm3 (150-375); Red Blood Count 3.92 M/mm3 (4.2-5.4); Red Cell Distribution Width 15.8 % (11.5-14.5); White Blood Count 5.4 K/mm3 (4.5-10.0)
[2024-04-17 09:12] LABS: Alanine Aminotransferase 16 U/L (6-35); Albumin Level 3.6 g/dL (3.5-5.1); Alkaline Phosphatase 57 U/L (38-126); Anion Gap 4 mmol/L (4-12); Aspartate Amino Transferase 38 U/L (14-36); Bilirubin,Total 0.4 mg/dL (0.2-1.3); Blood Urea Nitrogen 19 mg/dL (7-17); Calcium 8.7 mg/dL (8.4-10.2); Carbon Dioxide 38 mmol/L (22-30); Chloride 95 mmol/L (98-107); Estimated CRCL calculation 38 ml/min; Estimated Glomerular Filt Rate > 60; Glucose 93 mg/dL (65-110); Magnesium 2.1 mg/dL (1.6-2.3); Potassium 3.6 mmol/L (3.4-5.0); Sodium 137 mmol/L (137-145)
[2024-04-17] MEDS: CYANOCOBALAMIN 1,000 MCG TABLET 1000 MCG PO (09:13)
[2024-04-17] MEDS: lisinopriL 5 MG TABLET PO (09:13)
--- NOTE | 2024-04-17 11:14 | P.PNIM_ITS ---
Progress Note: A&P Assessment and Plan (1) Collapse of right lung: Code(s): J98.11 - Atelectasis Status: Acute Assessment and Plan: - CXR (04/15): Small right pleural effusion and collapse of the right middle and lower lobes. On the prior CT there appears to be a low-density region centrally within the collapsed right lower lobe which raises suspicion for either necrotic malignancy or infection with pulmonary abscess. Could consider diagnostic thoracentesis although the amount of fluid on prior CT appears relatively small. Would also consider further evaluation with bronchoscopy as there is occlusion of the bronchus intermedius on the prior CT. - CT chest (04/13): 1. Moderate right pleural effusion, possibly loculated. 2: Small pericardial effusion. - Sa02 93% on 2 liters nasal cannula. - Plant Propagator Dr. Vizcarra with recommendations to start Zosyn, Vancomycin, Cornet Valve, 3% saline inhaled 3 times a day, and Duoneb to see if patient has infection that improves. All recommendations ordered. - 04/17/24:Patient feeling a little better today. (2) COPD (chronic obstructive pulmonary disease): Qualifiers: COPD type: unspecified COPD Qualified Code(s): J44.9 - Chronic obstructive pulmonary disease, unspecified Code(s): J44.9 - Chronic obstructive pulmonary disease, unspecified Status: Inactive Assessment and Plan: * Duonebs * Cornet Valve (3) T12 burst fracture: Code(s): S22.081A - Stable burst fracture of T11-T12 vertebra, initial encounter for closed fracture Status: Chronic Assessment and Plan: * Pain control * PT/OT (4) Hypertension: Code(s): I10 - Essential (primary) hypertension Status: Acute Assessment and Plan: * Continue Lisinopril 5 mg PO daily and Metoprolol 25 mg PO qam. * Current blood pressure is 132/56. Plan Patient unsure of her daily medications. Reviewed medication [facility] from [facility] on 08/18/2023, patient believes it is correct. May need further verification. Diet: Regular GI Prophylaxis: Not currently indicated DVT Prophylaxis: Not currently indicated Lines: Peripheral Code Status: DNR Subjective Date/time seen: 04/17/24 11:14 Interval history: Patient reports feeling a little better today. Patient reports that pain in her back is a 3 , constant, and aching. Patient denies chest pain, palpitations, shortness of breath, headache, dizziness, nausea, or vomiting. Review of Systems Review of Systems: All systems reviewed & are unremarkable except as noted in HPI and below Exam Const: General: no acute distress and uncomfortable Resp: Effort & Inspection: normal respiratory effort Other: Decreased breath sounds in the right lower lobe and right middle lobe. No other adventitious lung sounds. Cardio: Rate: regular rate Rhythm: regular rhythm Other: Telemetry- SR 80. GI: GI Palp: Yes Soft to palpation Auscultation: normal bowel sounds Skin: General skin exam: no rashes or lesions noted Neuro: Speech: normal speech Extrem: General: no pedal edema Psych: Mental Status: mental status grossly normal Affect: normal affect Objective Data Vital Signs Vital Signs: Vital Signs - 24 hr 04/16/24 12:00 04/16/24 14:00 04/16/24 14:30 Temperature 98.8 F Pulse Rate 89 79 Respiratory Rate 20 Blood Pressure 136/56 L Pulse Oximetry 100 87 L Oxygen Delivery Nasal Cannula Oxygen Flow Rate 2 Fraction of Inspired Oxygen 28 04/16/24 14:35 04/16/24 14:35 04/16/24 15:08 Temperature Pulse Rate 80 81 Respiratory Rate 20 20 Blood Pressure Pulse Oximetry 95 95 Oxygen Delivery Nasal Cannula Nasal Cannula Oxygen Flow Rate 4 2 Fraction of Inspired Oxygen 36 04/16/24 15:08 04/16/24 16:00 04/16/24 20:50 Temperature Pulse Rate 81 84 73 Respiratory Rate 20 Blood Pressure Pulse Oximetry Oxygen Delivery Oxygen Flow Rate Fraction of Inspired Oxygen 04/16/24 21:05 04/16/24 21:22 04/16/24 21:24 Temperature 98.3 F Pulse Rate 80 70 84 Respiratory Rate 20 20 20 Blood Pressure 117/47 L Pulse Oximetry 98 Oxygen Delivery Oxygen Flow Rate Fraction of Inspired Oxygen 04/17/24 00:00 04/17/24 01:47 04/17/24 01:55 Temperature Pulse Rate 76 80 88 Respiratory Rate 20 20 Blood Pressure Pulse Oximetry Oxygen Delivery Oxygen Flow Rate Fraction of Inspired Oxygen 04/17/24 04:00 04/17/24 06:00 04/17/24 07:47 Temperature 98.8 F Pulse Rate 80 79 84 Respiratory Rate 22 H 20 Blood Pressure 132/56 L Pulse Oximetry 100 Oxygen Delivery Oxygen Flow Rate Fraction of Inspired Oxygen 04/17/24 07:47 04/17/24 08:00 04/17/24 08:07 Temperature Pulse Rate 104 H Respiratory Rate 24 H Blood Pressure Pulse Oximetry 93 93 Oxygen Delivery Nasal Cannula Nasal Cannula Oxygen Flow Rate 3 2 Fraction of Inspired Oxygen 04/17/24 09:04 Temperature Pulse Rate 87 Respiratory Rate Blood Pressure Pulse Oximetry Oxygen Delivery Oxygen Flow Rate Fraction of Inspired Oxygen Intake/Output Intake/Output: Intake & Output 04/14/24 04/15/24 04/16/24 04/17/24 23:59 23:59 23:59 23:59 Intake Total 2067 350 Balance 2067 350 Meds/Results Medications: Active Medications Generic Name Dose Route Start Last Admin Trade Name Freq PRN Reason Stop Dose Admin Acetaminophen 650 mg 04/15/24 21:02 Acetaminophen 325 Mg Tablet PO Q6H PRN Mild Pain (1-3) or Fever Hydrocodone Bitart/Acetaminophen 1 tab 04/15/24 19:35 04/17/24 09:13 Hydrocodone/Acetaminophen (*Crx) 5-325 Mg Tablet PO 1 tab Q4H PRN Administration Pain Rated 4-6 Albuterol 2 puff 04/15/24 22:10 04/16/24 05:18 Albuterol Sulfate (*Sp) Aerosol 1 Puff INHALATION 2 puff Q6HRT PRN Administration Shortness Of Breath Albuterol/Ipratropium 3 ml 04/16/24 14:00 04/17/24 07:44 Ipratropium 0.5 Mg/Albuterol Sulfate 2.5 Mg Ampul.Neb 3 Ml INHALATION 3 ml Q6HRT GUILLERMO Administration Colestipol HCl 5 gm 04/16/24 09:00 04/17/24 09:04 Colestipol Hcl 1 Gm Tablet PO 5 gm DAILY GUILLERMO Administration Cyanocobalamin 1,000 mcg 04/16/24 09:00 04/17/24 09:13 Cyanocobalamin 1,000 Mcg Tablet PO 1,000 mcg QAM GUILLERMO Administration Diphenoxylate HCl/Atropine 1 tablet 04/15/24 22:10 Diphenoxylate/Atropine (*Crx) 2.5 Mg Tablet PO PRN PRN Diarrhea Fluticasone/Umeclidinium/Vilanterol 1 puff 04/16/24 08:00 04/16/24 09:08 Fluticasone/Umeclidin/Vilanter 100-62.5-25 Mcg Ellipta INHALATION 1 puff DAILYRT GUILLERMO Administration Piperacillin/Tazobactam/Dextrose 3.375 gm in 50 mls @ 100 mls/hr 04/16/24 11:00 04/17/24 06:20 Zosyn 3.375 Gm/Ns 50 Ml IVPB 100 mls/hr Q6HR GUILLERMO Administration Vancomycin HCl 1,000 mg in 250 mls @ 250 mls/hr 04/17/24 13:00 Vancomycin 1,000 Mg/Ns 250 Ml IVPB Q24H GUILLERMO Sodium Chloride 1,000 mls @ 75 mls/hr 04/16/24 11:05 04/16/24 15:35 Normal Saline Iv IV CONT 75 mls/hr .[id number] GUILLERMO Administration Lisinopril 5 mg 04/16/24 09:00 04/17/24 09:13 Lisinopril 5 Mg Tablet PO 5 mg QAM GUILLERMO Administration Metoprolol Succinate 25 mg 04/16/24 09:00 04/17/24 09:04 Metoprolol Succinate Ext Rel 25 Mg Tabcr PO 25 mg QAM GUILLERMO Administration Morphine Sulfate 2 mg 04/15/24 21:02 04/16/24 10:29 Morphine Sulfate (*Crx) 2 Mg/Ml Inj IV PUSH 2 mg Q4H PRN Administration Pain Rated 7-10 Sodium Chloride 6 ml 04/16/24 13:00 04/17/24 07:44 Sodium Chlor 3% 15 Ml Neb (Respiratory Therapy) INHALATION 6 ml TID GUILLERMO Administration Trazodone HCl 50 mg 04/15/24 22:10 Trazodone Hcl 50 Mg Tablet PO HS PRN Insomnia Radiology Results: ITS Impressions Chest X-Ray 04/15/24 16:37 IMPRESSION: 1. Small right pleural effusion and collapse of the right middle and lower lobes. On the prior CT there appears to be a low-density region centrally within the collapsed right lower lobe which raises suspicion for either necrotic malignancy or infection with pulmonary abscess. Could consider diagnostic thoracentesis although the amount of fluid on prior CT appears relatively small. Would also consider further evaluation with bronchoscopy as there is occlusion of the bronchus intermedius on the prior CT. Labs Labs: Laboratory Results - last 24 hr 04/16/24 04/17/24 11:45 08:29 WBC 5.7 5.4 RBC 3.87 L 3.92 L Hgb 11.1 L 11.3 L Hct 36.9 L 38.7 MCV 95.3 98.7 MCH 28.7 28.8 MCHC 30.1 L 29.2 L RDW 15.6 H 15.8 H Plt Count 357 343 MPV 8.5 8.4 Immature Gran % (Auto) 0.4 0.4 Neut % (Auto) 61.1 49.2 Lymph % (Auto) 14.0 L 25.7 [place] % (Auto) 22.8 H 23.2 H Eos % (Auto) 0.5 0.6 Baso % (Auto) 1.2 0.9 Lymph # (Auto) 0.80 L 1.40 [place] # (Auto) 1.3 H 1.3 H Eos # (Auto) 0.0 0.0 Baso # (Auto) 0.1 0.1 Abs Immat Gran (auto) 0.02 0.02 Absolute Neuts (auto) 3.5 2.7 Absolute Nucleated RBC 0.000 0.000 Nucleated RBC % 0.0 0.0 Sodium 137 137 Potassium 4.2 3.6 Chloride 96 L 95 L Carbon Dioxide 35 H 38 H Anion Gap 6 4 BUN 22 H 19 H Creatinine 0.52 L 0.69 L Estim Creat Clear Calc 49 38 Estimated GFR > 60 > 60 Glucose 115 H 93 Calcium 8.4 8.7 Magnesium 2.0 2.1 Total Bilirubin 0.4 0.4 AST 40 H 38 H ALT 17 16 Alkaline Phosphatase 59 57 Total Protein 7.0 7.0 Albumin 3.7 3.6 Quality VTE Prophylaxis VTE prophylaxis: mechanical ordered
[2024-04-17] MEDS: VANCOMYCIN 1,000 MG/NS 250 ML 1,000 MG/250 ML BAG 250 MG IVPB (12:06)
[2024-04-17] MEDS: MORPHINE SULFATE (*CRX) 2 MG/ML INJ IV PUSH (14:16)
[2024-04-17 14:28] LABS: MRSA (PCR) NOT DETECTED (NOT DETECTE)
--- NOTE | 2024-04-17 14:30 | ECG_ITS ---
Test Date: 2024-04-17 14:44:06 Measurements Intervals [place] Rate: 124 P: 0 TX: 0 QRS: -48 QRSD: 138 T: 118 QT: 332 QTc: 478 Interpretive Statements ATRIAL FIBRILLATION WITH RAPID VENTRICULAR RESPONSE LEFT AXIS DEVIATION [QRS AXIS < -30] INTRAVENTRICULAR CONDUCTION DELAY [130+ ms QRS DURATION] ANTERIOR MYOCARDIAL INFARCTION , POSSIBLY ACUTE [40+ ms Q WAVE AND/OR ST/T ABNORMALITY IN V3/V4] ACUTE SD Compared to ECG 04/15/2024 16:12:37 Left-axis deviation now present Sinus rhythm no longer present Right-axis deviation no longer present Myocardial infarct finding still present Electronically Signed On 04-18-2024 18:12:31 DEV OPS ENGINEER by Sheila Clifford M.D.
[2024-04-17] MEDS: METOPROLOL TARTRATE INJ 5 MG/5 ML VIAL 2.5 MG IV PUSH (15:00)
[2024-04-17] MEDS: WATER FOR IRRIGATION, STERILE 1,000 ML BOTTLE 1000 ML (15:08)
[2024-04-17] MEDS: HEPARIN SOD/D5W 100 UNITS/ML 25,000 UNITS/250 ML BAG 10 UNITS IV CONT (15:15)
[2024-04-17] MEDS: HEPARIN SODIUM 5,000 UNITS/ML VIAL 4500 UNITS IV PUSH (15:19)
[2024-04-17 15:24] LABS: Basophils Absolute Auto 0.1 K/mm3 (0.0-0.1); Eosinophils Percent Auto 0.6 % (0-4.4); Hematocrit 35.9 % (37.0-47.0); Hemoglobin 10.6 g/dL (12.0-15.0); Immature Granulocyte Absolute 0.01 K/mm3 (0.00-0.031); Immature Granulocyte Percent A 0.2 % (0-0.5); Lymphocytes Absolute Auto 0.91 K/mm3 (0.9-3.2); Lymphocytes Percent Auto 18.8 % (18.3-44.2); Mean Corpuscular HGB Conc 29.5 g/dl (32-36); Mean Corpuscular Volume 98.1 fl (80-100); Mean Platelet Volume 8.5 fl (7.4-10.4); Monocytes Absolute Auto 0.9 K/mm3 (0.1-0.6); Neutrophils Absolute Auto 2.9 K/mm3 (1.3-6.7); Neutrophils Percent Auto 60.4 % (45.5-73.1); Platelet Count Result 357 k/mm3 (150-375); Red Blood Count 3.66 M/mm3 (4.2-5.4); Red Cell Distribution Width 15.7 % (11.5-14.5); White Blood Count 4.8 K/mm3 (4.5-10.0)
[2024-04-17 15:35] LABS: Anion Gap 8 mmol/L (4-12); Blood Urea Nitrogen 21 mg/dL (7-17); Calcium 7.8 mg/dL (8.4-10.2); Carbon Dioxide 32 mmol/L (22-30); Chloride 96 mmol/L (98-107); Estimated CRCL calculation 45 ml/min; Estimated Glomerular Filt Rate > 60; Glucose 125 mg/dL (65-110); Potassium 3.6 mmol/L (3.4-5.0); Sodium 136 mmol/L (137-145)
[2024-04-17 15:41] LABS: INR 1.2; Partial Thromboplastin Time 31.4 Seconds (22.3-36.8); Prothrombin Time 15.7 Seconds (11.1-14.7)
--- NOTE | 2024-04-17 15:42 | PCPTNOTE ---
attempted PT eval, pt's roommate currently having code purple and not a good time to enter room, will follow
[2024-04-17 15:44] LABS: NT Pro B Type Natriuretic Pept 1420 pg/mL (19.9-100)
[2024-04-17 15:46] LABS: Troponin I 0.018 ng/mL (0.000-0.034)
[2024-04-17 16:59] LABS: Hypochromasia 1+; Platelet Estimate Adequate (Adequate); Schistocytes None Seen
[2024-04-17 17:00] LABS: Anisocytosis 1+
--- NOTE | 2024-04-17 17:54 | PM.PNCARD ---
Progress Note: A&P Assessment and Plan Plan complete heart block status post dual-chamber pacemaker plan instructions regarding pacemaker site care and postprocedure care was emphasized however the patient not comprehending very well and he will need flow observation follow up in the clinic for device interrogation and wound care Subjective Date/time seen: 04/17/24 17:54 Interval history: no acute events Review of Systems Review of Systems: All systems reviewed & are unremarkable except as noted in HPI and below Exam Const: General: comfortable and no acute distress Other: Able to lie flat HENMT: Face/Nose/Sinus: Normal nares present and no epistaxis Mouth: Yes moist mucous membranes Eyes: Sclera: sclerae normal Pupils: Equal, round and reactive pupils present Neck: Neck: supple and no JVD Carotids: no bruits Chest: Other: Pacemaker site without hematoma Resp: Auscultation: clear to auscultation bilaterally and lung sounds not diminished Other: No chest wall tenderness Cardio: Rate: regular rate Rhythm: regular rhythm Heart sounds: no gallops, no murmurs and no rubs GI: GI Palp: Yes Soft to palpation and No Tenderness to palpation present (GI) Auscultation: normal bowel sounds Skin: General skin exam: normal color, rashes and/or lesions noted and no erythema Other: Warm Neuro: Cranial nerves: Yes Equal, round and reactive pupils present Speech: normal speech Other: No obvious focal deficit or facial asymmetry Extrem: General: no edema Other: Normal capillary refills Intact distal pulses. Objective Data Vital Signs Vital Signs: Vital Signs - 24 hr 04/16/24 20:50 04/16/24 21:05 04/16/24 21:22 Temperature 36.8 C Pulse Rate 73 80 70 Respiratory Rate 20 20 Blood Pressure 117/47 L Pulse Oximetry 98 Oxygen Delivery Oxygen Flow Rate 04/16/24 21:24 04/17/24 00:00 04/17/24 01:47 Temperature Pulse Rate 84 76 80 Respiratory Rate 20 20 Blood Pressure Pulse Oximetry Oxygen Delivery Oxygen Flow Rate 04/17/24 01:55 04/17/24 04:00 04/17/24 06:00 Temperature 37.1 C Pulse Rate 88 80 79 Respiratory Rate 20 22 H Blood Pressure 132/56 L Pulse Oximetry 100 Oxygen Delivery Oxygen Flow Rate 04/17/24 07:47 04/17/24 07:47 04/17/24 08:00 Temperature Pulse Rate 84 Respiratory Rate 20 Blood Pressure Pulse Oximetry 93 93 Oxygen Delivery Nasal Cannula Nasal Cannula Oxygen Flow Rate 3 2 04/17/24 08:07 04/17/24 09:04 04/17/24 12:00 Temperature Pulse Rate 104 H 87 76 Respiratory Rate 24 H Blood Pressure Pulse Oximetry Oxygen Delivery Oxygen Flow Rate 04/17/24 13:35 04/17/24 13:53 04/17/24 14:00 Temperature 37.4 C Pulse Rate 84 125 H Respiratory Rate 24 H 24 H 19 Blood Pressure 98/50 L Pulse Oximetry 63 L Oxygen Delivery Oxygen Flow Rate 04/17/24 15:00 04/17/24 16:37 Temperature Pulse Rate 141 H Respiratory Rate Blood Pressure 108/62 Pulse Oximetry Oxygen Delivery Oxygen Flow Rate Intake/Output Intake/Output: Intake & Output 04/14/24 04/15/24 04/16/24 04/17/24 23:59 23:59 23:59 23:59 Intake Total 5 037 Balance 5 593 Meds/Results Medications: Active Medications Generic Name Dose Route Start Last Admin Trade Name Freq PRN Reason Stop Dose Admin Acetaminophen 650 mg 04/15/24 21:02 Acetaminophen 325 Mg Tablet PO Q6H PRN Mild Pain (1-3) or Fever Hydrocodone Bitart/Acetaminophen 1 tab 04/15/24 19:35 04/17/24 09:13 Hydrocodone/Acetaminophen (*Crx) 5-325 Mg Tablet PO 1 tab Q4H PRN Administration Pain Rated 4-6 Albuterol 2 puff 04/15/24 22:10 04/16/24 05:18 Albuterol Sulfate (*Sp) Aerosol 1 Puff INHALATION 2 puff Q6HRT PRN Administration Shortness Of Breath Albuterol/Ipratropium 3 ml 04/16/24 14:00 04/17/24 13:32 Ipratropium 0.5 Mg/Albuterol Sulfate 2.5 Mg Ampul.Neb 3 Ml INHALATION 3 ml Q6HRT GUILLERMO Administration Colestipol HCl 5 gm 04/16/24 09:00 04/17/24 09:04 Colestipol Hcl 1 Gm Tablet PO 5 gm DAILY GUILLERMO Administration Cyanocobalamin 1,000 mcg 04/16/24 09:00 04/17/24 09:13 Cyanocobalamin 1,000 Mcg Tablet PO 1,000 mcg QAM GUILLERMO Administration Diphenoxylate HCl/Atropine 1 tablet 04/15/24 22:10 Diphenoxylate/Atropine (*Crx) 2.5 Mg Tablet PO PRN PRN Diarrhea Fluticasone/Umeclidinium/Vilanterol 1 puff 04/16/24 08:00 04/16/24 09:08 Fluticasone/Umeclidin/Vilanter 100-62.5-25 Mcg Ellipta INHALATION 1 puff DAILYRT GUILLERMO Administration Heparin Sodium (Porcine) 4,500 units 04/17/24 14:56 Heparin Sodium 5,000 Units/Ml Vial IV PUSH PRN PRN aPTT less than 55 seconds Heparin Sodium (Porcine) 2,000 units 04/17/24 14:56 Heparin Sodium 5,000 Units/Ml Vial IV PUSH PRN PRN aPTT 55 - 70 seconds Piperacillin/Tazobactam/Dextrose 3.375 gm in 50 mls @ 100 mls/hr 04/16/24 11:00 04/17/24 17:50 Zosyn 3.375 Gm/Ns 50 Ml IVPB 100 mls/hr Q6HR GUILLERMO Administration Vancomycin HCl 1,000 mg in 250 mls @ 250 mls/hr 04/17/24 13:00 04/17/24 12:06 Vancomycin 1,000 Mg/Ns 250 Ml IVPB 250 mls/hr Q24H GUILLERMO Administration Heparin Sodium/Dextrose 25,000 units in 250 mls @ 10 mls/hr 04/17/24 15:00 04/17/24 15:15 Heparin Sodium/D5w 100 Units/Ml IV CONT 1,000 units/hr .Q24H GUILLERMO 10 mls/hr Administration Protocol 1,000 UNITS/HR Lisinopril 5 mg 04/16/24 09:00 04/17/24 09:13 Lisinopril 5 Mg Tablet PO 5 mg QAM GUILLERMO Administration Metoprolol Tartrate 12.5 mg 04/17/24 21:00 Metoprolol Tartrate 12.5 Mg Tablet PO Q12HR GUILLERMO Perflutren Lipid Microsphere 0 ml 04/17/24 15:23 Perflutren Lipid Microspheres 1.5 Ml Vial Diluted To 10 Ml Total Volume IV PUSH 04/20/24 15:23 ONCE PRN adequate visualization Protocol Sodium Chloride 6 ml 04/16/24 13:00 04/17/24 13:32 Sodium Chlor 3% 15 Ml Neb (Respiratory Therapy) INHALATION 6 ml TID GUILLERMO Administration Trazodone HCl 50 mg 04/15/24 22:10 Trazodone Hcl 50 Mg Tablet PO HS PRN Insomnia Radiology Results: ITS Impressions Chest X-Ray 04/15/24 16:37 IMPRESSION: 1. Small right pleural effusion and collapse of the right middle and lower lobes. On the prior CT there appears to be a low-density region centrally within the collapsed right lower lobe which raises suspicion for either necrotic malignancy or infection with pulmonary abscess. Could consider diagnostic thoracentesis although the amount of fluid on prior CT appears relatively small. Would also consider further evaluation with bronchoscopy as there is occlusion of the bronchus intermedius on the prior CT. Labs Labs: Laboratory Results - last 24 hr 04/17/24 04/17/24 04/17/24 08:29 13:01 15:16 WBC 5.4 4.8 RBC 3.92 L 3.66 L Hgb 11.3 L 10.6 L Hct 38.7 35.9 L MCV 98.7 98.1 MCH 28.8 29.0 MCHC 29.2 L 29.5 L RDW 15.8 H 15.7 H Plt Count 343 357 MPV 8.4 8.5 Immature Gran % (Auto) 0.4 0.2 Neut % (Auto) 49.2 60.4 Lymph % (Auto) 25.7 18.8 [place] % (Auto) 23.2 H 19.0 H Eos % (Auto) 0.6 0.6 Baso % (Auto) 0.9 1.0 Lymph # (Auto) 1.40 0.91 [place] # (Auto) 1.3 H 0.9 H Eos # (Auto) 0.0 0.0 Baso # (Auto) 0.1 0.1 Abs Immat Gran (auto) 0.02 0.01 Absolute Neuts (auto) 2.7 2.9 Absolute Nucleated RBC 0.000 0.000 Nucleated RBC % 0.0 0.0 Platelet Estimate Adequate Hypochromasia 1+ Anisocytosis 1+ Schistocytes None seen PT 15.7 H INR 1.2 APTT 31.4 Sodium 137 136 L Potassium 3.6 3.6 Chloride 95 L 96 L Carbon Dioxide 38 H 32 H Anion Gap 4 8 BUN 19 H 21 H Creatinine 0.69 L 0.57 L Estim Creat Clear Calc 38 45 Estimated GFR > 60 > 60 Glucose 93 125 H Calcium 8.7 7.8 L Magnesium 2.1 2.0 Total Bilirubin 0.4 AST 38 H ALT 16 Alkaline Phosphatase 57 Troponin I 0.018 NT-Pro-B Natriuret Pep 1420 H Total Protein 7.0 Albumin 3.6 Nasal MRSA (PCR) Not detected
[2024-04-17] MEDS: POTASSIUM CHLORIDE 20 MEQ ER TABLET 40 MEQ PO (18:01)
[2024-04-17 21:31] LABS: Partial Thromboplastin Time 146.4 Seconds (22.3-36.8)
[2024-04-17 21:55] LABS: Troponin I 0.039 ng/mL (0.000-0.034)
--- NOTE | 2024-04-17 22:03 | ECG_ITS ---
Test Date: 2024-04-17 22:14:48 Measurements Intervals [place] Rate: 84 P: 23 [place]: 130 QRS: -53 QRSD: 132 T: 77 QT: 383 QTc: 454 Interpretive Statements SINUS RHYTHM LEFT AXIS DEVIATION [QRS AXIS < -30] INTRAVENTRICULAR CONDUCTION DELAY [130+ ms QRS DURATION] Compared to ECG 04/17/2024 14:44:06 Atrial fibrillation no longer present Myocardial infarct finding no longer present Electronically Signed On 04-18-2024 18:09:46 STRAIGHT LINE EDGER by Sheila Clifford M.D.
[2024-04-17] MEDS: METOPROLOL TARTRATE 12.5 MG TABLET PO (23:15)
[2024-04-17] MEDS: traZODone HCL 50 MG TABLET PO (23:15)
[2024-04-17 23:43] LABS: Alveolar/Arterial O2 Gradient 13.8 mmHg; Base Excess ABG 3.5 mEq/l (+/-2.0); Carboxyhemoglobin 0.6 % THb (0-2.0); Fractional Inspired Oxygen 36 %; Methemoglobin ABG 0.1 %THb (0-1.5); Oxygen Content ABG 16.6 %vol (16.0-22.0); Oxygen Saturation ABG 98.8 % (95.0-100.0); Oxyhemoglobin 98.7 % THb (90.0-100.0); PO2 ABG 161.1 mmHg (80.0-100.0); PO2 FiO2 Ratio Arterial Blood 4.48 %; Reduced Hemoglobin 0.6 %THb (0-5.0); Total Hemoglobin 11.7 g/dL (12.0-18.0)
[2024-04-17 23:45] LABS: Device NASAL CANNULA; Modified Allen's Test Pass; PCO2 ABG 70.5 mmHg (35.0-45.0); Site Drawn RIGHT RADIAL; pH ABG 7.275 (7.350-7.450)
--- NOTE | 2024-04-17 23:45 | PM.CCN ---
Critical Care Event Note Summary Code activated: No Narrative: 04/17/2024 23:15 Nursing staff notify me while I was on the floor that the patient was having increasing oxygen requirement. She would have intermittent episodes of hypoxia and with take quite some time to recover. During these episodes of hypoxia the patient was become acutely more confused and uncooperative. The patient was expressing displeasure with staff bike cursing at them and by flipping them off. Patient was having increasing tachypnea and had coarse breath sounds. Went to evaluate the patient and patient was nonverbal but would make rude gestures when I would ask a question. She refused to respond verbally. She was not moving her left side but had normal tone. She would stick her tongue out in an arm noxious manner instead of answering questions verbally. The patient had had a episode of AFib (presumed new onset) earlier in the day and had been placed on a heparin drip for stroke prophylaxis. Given her change in respiratory status it was assumed that her change in mentation was most likely due to respiratory cause an ABG was obtained. Her pH was low at 7.2 and her pCO2 was 70. However given the recent start of anticoagulation could not rule out acute intercranial process given that the patient was not moving her left side. The patient was sent down for stat CT of the brain which on my review was negative but I never received report from stat rad by Radiology. The patient was subsequently moved to the ICU was in IMU overflow due to acute hypercapnic respiratory failure and some component of CO2 narcosis. Initial orders for BiPAP or place when I went to evaluate the patient on the BiPAP are tidal volumes were slightly low and adjustments were made. Repeat ABG was ordered for 2 hours later which demonstrated no significant improvement. Subsequently I went re-evaluated the patient and at that time her tidal volumes instead of being in the 300-350 range as they had been previously were down into the mid 220s. And made further adjustments to BiPAP increasing her settings to 20/8 with improvement in her tidal volumes to 400-450 range and her BiPAP rate was increased to 26. About an hour and half after these changes were made the patient went from being minimally responsive to again flipping off nurses and cursing at nurses. She was also able to tell the nurses her name and that she was in the hospital. A stat chest x-ray was performed given the decreased breath sounds noted on exam on the left and x-ray at time of my review seemed to have pretty stable findings on the left but had increased opacities on the right with what I suspect is worsening right and middle lobe collapse or pneumonia. Patient is already on broad-spectrum antibiotic coverage. Patient will be continued on scheduled nebulizer treatments and will add Solu-Medrol 60 mg Q 8 hours. Will repeat ABG at around 05:00. 1. Acute hypercapnic hypoxic respiratory failure 2. CO2 narcosis Physical exam and plan as discussed above Given the patient's worsening respiratory status despite care and treatment with antibiotics nebulizers etc. and the patient's reluctance to cooperate with medical staff and care we may need to consider revisiting the patient's previous wishes regarding hospice and comfort based care. However given that the patient has actually become more responsive and is not having episodes of apnea previously noted on BiPAP with these new BiPAP settings the patient is now stabilized. I will hold off on calling the family given the time of day/night and will defer further discussion to the daytime service. 70 minute spent in critical care activities. This case had a high probability of a clinically significant, sudden, or life threatening deterioration of this patient's condition which required my full and direct attention, intervention and personal management. Critical care time: 30 - 74 mins
[2024-04-18] VITALS (23 sets, daily range): BP systolic 100–145; BP diastolic 52–85; PULSE 67–110; RESP 17–27; TEMP 36.7–36.9; O2SAT 91–100
--- NOTE | 2024-04-18 | ECHO_ITS ---
Patient Info Name: Mallory Harrell Age: 88 years : 1935 Gender: Female Ht: 62 in Wt: 136 lbs BSA: 1.65 m2 HR: 76 bpm BP: 123 / 52 mmHg Heart Rhythm: Sinus Rhythm Technical Quality: Good Exam Date: 04/18/2024 8:10 AM Exam Location: Echo Lab Patient Status: Inpatient Admit Date: 04/17/2024 Staff Ordering Physician: Alie Hastings APRN [employer]s Receivable Processor: Yazmin Rios RDCS Attending Provider: Satinder Willson MD Referring Physician: Venkata DEVINE; Exam Type: CA echo dop color flow w con Study Info Indications - New onset Afib Complete two-dimensional, color flow and Doppler transthoracic echocardiogram is performed with contrast to opacify the left ventricle and to improve the deliniation of the left ventricle endocardial borders. Contrast/Agitated Saline Contrast/Ag. Saline: Definity Amount: 2.00 ml Administered By: Yazmin Rios RDCS Existing IV Access: Yes IV Access Condition: patent with no signs of infiltration Summary 1. Left ventricular systolic function is normal, estimated at 50-55%. 2. There is moderately increased left ventricular wall thickness. 3. Left ventricular septal wall motion is abnormal with septal motion related to bundle branch block. 4. The left ventricular diastolic function is grade I diastolic dysfunction. 5. Left atrial chamber dimension is mildly enlarged. 6. There is mild aortic valve calcification. 7. There is trace tricuspid valve regurgitation. 8. No pulmonary hypertension, estimated pulmonary arterial systolic pressure is 28 mmHg. Left Ventricle Left ventricular chamber dimension is normal. Left ventricular systolic function is normal, estimated at 50-55%. There is moderately increased left ventricular wall thickness. Left ventricular septal wall motion is abnormal with septal motion related to bundle branch block. The left ventricular diastolic function is grade I diastolic dysfunction. Right Ventricle Right ventricular chamber dimension is normal. Right ventricular systolic function is normal. Left Atria Left atrial chamber dimension is mildly enlarged. Right Atria Right atrial chamber dimension is normal. Aortic Valve The aortic valve is not well visualized. There is no aortic valve sclerosis. There is no aortic valve stenosis. There is no aortic valve regurgitation. There is mild aortic valve calcification. Pulmonic Valve The pulmonic valve is normal. There is no pulmonic valve stenosis. There is no pulmonic regurgitation. Mitral Valve The mitral valve has normal leaflets. There is no mitral valve stenosis. There is no mitral valve regurgitation. Tricuspid Valve The tricuspid valve leaflets are normal. There is no significant tricuspid valve stenosis. There is trace tricuspid valve regurgitation. No pulmonary hypertension, estimated pulmonary arterial systolic pressure is 28 mmHg. Pericardium/Pleural The pericardium appears normal. There is no pericardial effusion. Inferior Vena Cava Normal inferior vena cava with >50% collapse upon inspiration consistent with Empty right atrial pressure, 10 mmHg. Aorta The aortic root size at the sinus of Valsalva is normal. The prox ascending aorta size is normal. Left Ventricular Outflow Tract Name Value Normal LVOT 2D LVOT Diameter 1.95 cm LVOT Doppler LVOT Peak Gradient 3 mmHg LVOT Mean Gradient 1 mmHg LVOT VTI 17.37 cm LVOT VTI/AV VTI Ratio 0.93 LVOT Stroke Volume 52.05 ml LVOT CO 3.67 l/min LVOT CI 2.22 L/min/m2 Mitral Valve Name Value Normal MV Doppler MV Decel [place] 364.47 cm/s2 MV PHT 0 s MV Area (PHT) 3.55 cm2 4.00-5.00 MV Diastolic Function MV E Peak Velocity 77.98 cm/s MV A Peak Velocity 99.91 cm/s MV E/A 0.78 MV Decel Time 0 s MV Annular TDI MV E/e' (Septal) 22.28 <=8.00 MV E/e' (Lateral) 16.29 <=8.00 MV E/e' (Average) 19.29 Tricuspid Valve Name Value Normal TV Regurgitation Doppler TR Peak Velocity 214.72 cm/s TR Peak Gradient 18 mmHg Estimated PAP/RSVP RA Pressure 10 mmHg <=5 PA Systolic Pressure 28 mmHg <36 RV Systolic Pressure 28 mmHg <36 Aorta Name Value Normal Ascending Aorta Ao Root Diameter (MM) 2.85 cm Ao Root Diam Index (MM) 1.72 cm/m2 Aortic Valve Name Value Normal AV Doppler AV Peak Velocity 101.70 cm/s AV Peak Gradient 4 mmHg AV Mean Gradient 2 mmHg AV VTI 18.76 cm AV Area (Cont Eq VTI) 2.78 cm2 >=3.00 AV Area (Cont Eq Juan) 2.54 cm2 AV Regurgitation 2D LVOT Area 3.00 cm2 Ventricles Name Value Normal LV Dimensions 2D/MM IVS Diastolic Thickness (2D) 1.01 cm 0.60-1.00 LVID Diastole (2D) 4.99 cm 3.80-5.20 LVIW Diastolic Thickness (2D) 0.95 cm 0.60-0.90 LVID Systole (2D) 3.54 cm 2.20-3.50 LVOT Diameter 1.95 cm LV Mass (2D Cubed) 176.78 g 67.00-162.00 LV Mass Index (2D Cubed) 0.01 g/cm2 0.00-0.01 Relative Wall Thickness (2D) 0.38 LV Fractional Shortening/Ejection Fraction 2D/MM LV Fractional Shortening (2D) 29 % 27-45 LV EF (2D Teicholz) 56 % 54-74 LV Diastolic Volume (4C MOD) 51.19 ml LV EF (4C MOD) 56 % LV Diastolic Volume (2C MOD) 42.04 ml LV EF (2C MOD) 58 % LV Diastolic Volume (BP MOD) 46.76 ml 46.00-106.00 LV Diastolic Volume Index (BP MOD) 0.03 l/m2 0.03-0.06 LV Systolic Volume (BP MOD) 21.00 ml 14.00-42.00 LV Systolic Volume Index (BP MOD) 0.01 l/m2 0.01-0.02 LV EF (BP MOD) 55 % 54-74 LV Diastolic Length (4C) 8.70 cm LV Systolic Length (4C) 7.40 cm LV Stroke Volume (4C MOD) 28.67 ml Atria Name Value Normal LA Dimensions LA Dimension (MM) 4.04 cm 2.70-3.80 LA Volume (4C A-L) 30.70 ml LA Volume (BP A-L) 33.20 ml RA Dimensions RA Area (4C) 16.69 cm2 <=18.00 Report Signatures
--- NOTE | 2024-04-18 00:31 | PC.NURSE ---
This patient, Mallory Harrell, was received from Pooja BURNS on 04/18/24 at 0030. Patient/family oriented to unit policies and routines
[2024-04-18] MEDS: methylPREDNISolone SOD SUCC 125 MG VIAL 60 MG IV PUSH ×3 (01:01→12:58)
[2024-04-18] MEDS: PIPERACILLN/TAZ 3.375GM/NS50ML 3.375 GM/50 ML BAG IVPB ×5 (01:01→23:02)
[2024-04-18 01:30] LABS: Troponin I 0.049 ng/mL (0.000-0.034)
[2024-04-18] MEDS: IPRATROPIUM 0.5 MG/ALBUTEROL SULFATE 2.5 MG AMPUL.NEB 3 ML INHALATION ×4 (02:29→20:50)
[2024-04-18] MEDS: HEPARIN SOD/D5W 100 UNITS/ML 25,000 UNITS/250 ML BAG 8 UNITS IV CONT (02:33)
[2024-04-18 03:00] LABS: Alveolar/Arterial O2 Gradient 65.6 mmHg; Base Excess ABG 0.7 mEq/l (+/-2.0); Fractional Inspired Oxygen 30 %; HCO3 ABG 28.7 mEq/l (22.0-26.0); Oxygen Content ABG 15.6 %vol (16.0-22.0); Oxygen Saturation ABG 92.7 % (95.0-100.0); Oxyhemoglobin 93.8 % THb (90.0-100.0); PO2 ABG 74.2 mmHg (80.0-100.0); PO2 FiO2 Ratio Arterial Blood 2.47 %; Total Hemoglobin 11.8 g/dL (12.0-18.0)
[2024-04-18 03:16] LABS: Device BIPAP; Modified Allen's Test Pass; PCO2 ABG 63.1 mmHg (35.0-45.0); Site Drawn RIGHT BRACHIAL; pH ABG 7.276 (7.350-7.450)
[2024-04-18 03:17] LABS: Expiratory Pressure 6 cmH2O; Inspiratory Pressure 16 cmH2O
[2024-04-18 03:29] LABS: Glucose Point of Care 114 mg/dl (65-105)
--- NOTE | 2024-04-18 04:22 | ECG_ITS ---
Test Date: 2024-04-18 04:26:21 Measurements Intervals [place] Rate: 75 P: -1 CT: 147 QRS: -38 QRSD: 137 T: 63 QT: 414 QTc: 464 Interpretive Statements SINUS RHYTHM MARKED LEFT AXIS DEVIATION [QRS AXIS < -30] INTRAVENTRICULAR CONDUCTION DELAY [130+ ms QRS DURATION] POSSIBLE ANTERIOR MYOCARDIAL INFARCTION [30 ms Q WAVE IN V3/V4, OR R < 0.2 mV IN V4], OF INDETERMINATE AGE Compared to ECG 04/17/2024 22:14:48 Myocardial infarct finding now present Electronically Signed On 04-18-2024 18:07:06 [employer] by Sheila Clifford M.D.
[2024-04-18 04:34] LABS: Basophils Percent Auto 0.6 % (0.2-1.2); Hemoglobin 10.7 g/dL (12.0-15.0); Immature Granulocyte Absolute 0.01 K/mm3 (0.00-0.031); Immature Granulocyte Percent A 0.3 % (0-0.5); Lymphocytes Absolute Auto 0.68 K/mm3 (0.9-3.2); Lymphocytes Percent Auto 20.3 % (18.3-44.2); Mean Corpuscular HGB Conc 29.7 g/dl (32-36); Mean Corpuscular Hemoglobin 29.2 pg (26-34); Mean Corpuscular Volume 98.1 fl (80-100); Mean Platelet Volume 8.5 fl (7.4-10.4); Monocytes Absolute Auto 0.2 K/mm3 (0.1-0.6); Monocytes Percent Auto 7.2 % (2.6-8.5); Neutrophils Absolute Auto 2.4 K/mm3 (1.3-6.7); Neutrophils Percent Auto 71.6 % (45.5-73.1); Platelet Count Result 322 k/mm3 (150-375); Red Blood Count 3.67 M/mm3 (4.2-5.4); Red Cell Distribution Width 15.4 % (11.5-14.5); White Blood Count 3.4 K/mm3 (4.5-10.0)
[2024-04-18 04:52] LABS: Alveolar/Arterial O2 Gradient 48.5 mmHg; Fractional Inspired Oxygen 30 %; HCO3 ABG 33.3 mEq/l (22.0-26.0); Oxygen Content ABG 16.2 %vol (16.0-22.0); Oxygen Saturation ABG 94.9 % (95.0-100.0); Oxyhemoglobin 95.5 % THb (90.0-100.0)
[2024-04-18] MEDS: MORPHINE SULFATE (*CRX) 4 MG/ML INJ 2 MG IV PUSH ×2 (04:52→10:54)
[2024-04-18 04:56] LABS: Alanine Aminotransferase 17 U/L (6-35); Albumin Level 3.5 g/dL (3.5-5.1); Alkaline Phosphatase 54 U/L (38-126); Anion Gap 7 mmol/L (4-12); Aspartate Amino Transferase 40 U/L (14-36); Bilirubin,Total 0.4 mg/dL (0.2-1.3); Blood Urea Nitrogen 26 mg/dL (7-17); Calcium 8.2 mg/dL (8.4-10.2); Carbon Dioxide 32 mmol/L (22-30); Chloride 96 mmol/L (98-107); Estimated CRCL calculation 40 ml/min; Estimated Glomerular Filt Rate > 60; Glucose 109 mg/dL (65-110); Magnesium 2.2 mg/dL (1.6-2.3); Potassium 4.6 mmol/L (3.4-5.0); Sodium 135 mmol/L (137-145)
[2024-04-18 06:09] LABS: Device BIPAP; Modified Allen's Test Pass; PCO2 ABG 69.3 mmHg (35.0-45.0); Site Drawn RIGHT BRACHIAL
[2024-04-18] MEDS: METOPROLOL TARTRATE 12.5 MG TABLET PO ×2 (08:03→20:09)
[2024-04-18] MEDS: lisinopriL 5 MG TABLET PO (08:04)
[2024-04-18] MEDS: SODIUM CHLOR 3% 15 ML NEB (RESPIRATORY THERAPY) 6 ML INHALATION ×3 (08:20→20:50)
[2024-04-18] MEDS: PERFLUTREN LIPID MICROSPHERES 1.5 ML VIAL DILUTED TO 10 ML TOTAL VOLUME IV PUSH (08:30)
[2024-04-18 08:38] LABS: Partial Thromboplastin Time 95.6 Seconds (22.3-36.8)
--- NOTE | 2024-04-18 08:57 | PM.CNCAR ---
Assessment and Plan Assessment and plan (1) NSTEMI (non-ST elevated myocardial infarction): Code(s): I21.4 - Non-ST elevation (NSTEMI) myocardial infarction Status: Acute (2) Atrial fibrillation with RVR: Code(s): I48.91 - Unspecified atrial fibrillation Status: Acute (3) Hypertension: Code(s): I10 - Essential (primary) hypertension Status: Acute (4) Pleural effusion: Code(s): J90 - Pleural effusion, not elsewhere classified Status: Acute (5) Collapse of right lung: Code(s): J98.11 - Atelectasis Status: Acute (6) Acute hypoxic respiratory failure: Code(s): J96.01 - Acute respiratory failure with hypoxia Status: Acute Plan 1. NSTEMI-most likely type 2 secondary to underlying pulmonary pathology versus type 1 given risk factors for coronary artery disease including age, smoking history, hypertension; low normal EF of 50-55% 2. Acute hypoxic respiratory failure 3. Right middle and lower lung collapse 4. BL pleural effusions 5. Hypertension 6. Pulmonary hypertension 7. Smoking history 8. COPD Plan: 1. Recommend medical management for NSTEMI in the setting of ongoing acute pulmonary pathology, patient is not complaining of active chest pain, and no ST elevations on EKG 2. Start aspirin 81 mg daily 3. Add atorvastatin 40 mg daily 4. Trend troponin to peak 5. TTE reviewed. Low normal LVEF of 50-55% with no RWMA 6. Plan for cardiac cath to evaluate for underlying CAD after she recovers from her acute illness 7. Management of other issues per primary team History of Present Illness History of Present Illness Consult date/time: 04/18/24 08:57 Reason For Visit: pleural effusion lung collapse acute hypoxic resp Narrative: Patient is an 88-year-old female with past medical history of hypertension, burst fracture of T12, COPD, pulmonary hypertension, smoking history who was admitted with right lung collapse and hypoxia. She is on 30% oxygen by a positive pressure ventilation and pulmonary has been consulted. Cardiology was consulted for chest pain and elevated troponin. Most of the history is obtained from the medical chart as patient is confused and unable to provide history. She is accompanied by her son-in-law who states that patient has been living in an assisted living facility and had complained of shortness of breath which prompted her to be brought to the hospital. Patient pointed to the middle of her chest when I asked her if she has any chest pain and stated that it goes around her chest but was not able to provide any further history. Pertinent workup: Troponin: 0.039, 0.049 EKG: On April 17 showed AFib with RVR with rates in the 140s; EKG: On April 18 shows normal sinus rhythm and intraventricular conduction delay Chest x-ray: Small to moderate pleural effusions CT head: No acute intracranial abnormality TTE: Summary 1. Left ventricular systolic function is normal, estimated at 50-55%. 2. There is moderately increased left ventricular wall thickness. 3. Left ventricular septal wall motion is abnormal with septal motion related to bundle branch block. 4. The left ventricular diastolic function is grade I diastolic dysfunction. 5. Left atrial chamber dimension is mildly enlarged. 6. There is mild aortic valve calcification. 7. There is trace tricuspid valve regurgitation. 8. No pulmonary hypertension, estimated pulmonary arterial systolic pressure is 28 mmHg. Review of Systems Review of Systems: A complete review of systems was not performed due to patient being confused. [facility] Past Medical History Medical History Insomnia Hypertension, essential COPD (chronic obstructive pulmonary disease) Hard of hearing Pulmonary hypertension B12 deficiency Social History Social History Smoking status: Current some day smoker Tobacco type: cigarettes Additional smoking assessment comments: ONLY A COUPLE OF TIMES PER MONTH Alcohol intake: never Substance use: never Do You Feel Safe in your Home?: Yes Lack of Transportation: No Lack of Food: Never True Current Housing: I Have Housing Concerned About Future Housing: No Difficulty Paying Gas/Electric Bills: No Difficulty Paying for Meds: No Currently Unemployed: No Education: High School Diploma/GED Difficulty w/ Childcare or Family Care: No Living arrangements: alone Spiritual care concerns: No Meds Home Medications and Allergies Home Medications ?Medication ?Instructions ?Recorded ?Confirmed ?Type diphenoxylate-atropine 2.5 1 tablet PO TID PRN diarrhea #20 04/06/19 04/15/24 Rx mg-0.025 mg tablet (Lomotil) tabs colestipol 5 gram oral granules 5 g PO DAILY diarrhea #500 grams 02/06/22 04/15/24 Rx (Colestid) lisinopril 5 mg tablet 5 mg PO DAILY 09/04/22 04/15/24 History metoprolol succinate 25 mg 25 mg PO DAILY 09/04/22 04/15/24 History tablet,extended release 24 hr albuterol sulfate 90 mcg/actuation See Rx Instructions .Route 07/10/23 04/15/24 Rx aerosol inhaler .COMPLEX #9 grams meloxicam 15 mg tablet 15 mg PO DAILY back pain #30 tabs 12/16/23 04/15/24 Rx mecobalamin (vitamin B12) 1,000 1,000 mcg sublingual DAILY b12 02/19/24 04/15/24 Rx mcg disintegrating deficiency #90 tabs tablet,sublingual trazodone 50 mg tablet See Rx Instructions PO .HS 03/24/24 04/15/24 Rx insomnia #60 tabs budesonide 160 mcg-glycopyr 9 2 inh inhalation BID #10.7 grams 04/15/24 04/15/24 Rx mcg-formot 4.8 mcg/actuation HFA inhaler (Breztri Aerosphere) Allergies Allergy/AdvReac Type Severity Reaction Status Date / Time clarithromycin Allergy Unknown Unknown Verified 10/13/23 11:18 Vital Signs Vital Signs - 24 hr 04/17/24 09:04 04/17/24 12:00 04/17/24 13:35 Temperature Pulse Rate 87 76 84 Respiratory Rate 24 H Blood Pressure Pulse Oximetry Oxygen Delivery Oxygen Flow Rate 04/17/24 13:53 04/17/24 14:00 04/17/24 15:00 Temperature 37.4 C Pulse Rate 125 H 141 H Respiratory Rate 24 H 19 Blood Pressure 98/50 L Pulse Oximetry 63 L Oxygen Delivery Oxygen Flow Rate 04/17/24 16:00 04/17/24 16:37 04/17/24 19:37 Temperature Pulse Rate 85 Respiratory Rate Blood Pressure 108/62 Pulse Oximetry 99 Oxygen Delivery Nasal Cannula Oxygen Flow Rate 3 04/17/24 19:37 04/17/24 19:46 04/17/24 20:00 Temperature Pulse Rate 89 91 Respiratory Rate 20 20 Blood Pressure Pulse Oximetry 99 Oxygen Delivery Nasal Cannula Oxygen Flow Rate 4 04/17/24 21:44 04/18/24 00:30 04/18/24 01:00 Temperature 36.4 C 36.7 C Pulse Rate 67 78 Respiratory Rate 22 H 17 Blood Pressure 122/66 109/53 L Pulse Oximetry 99 98 Oxygen Delivery BiPAP Oxygen Flow Rate 04/18/24 01:03 04/18/24 02:30 04/18/24 02:37 Temperature Pulse Rate 76 70 74 Respiratory Rate 21 H 24 H 23 H Blood Pressure Pulse Oximetry 97 Oxygen Delivery BiPAP Oxygen Flow Rate 04/18/24 03:09 04/18/24 03:25 04/18/24 04:00 Temperature 36.7 C Pulse Rate 74 74 Respiratory Rate 23 H 26 H Blood Pressure 123/52 L Pulse Oximetry 97 94 Oxygen Delivery BiPAP BiPAP Oxygen Flow Rate 04/18/24 04:00 04/18/24 05:20 04/18/24 08:03 Temperature Pulse Rate 71 76 71 Respiratory Rate 26 H Blood Pressure Pulse Oximetry 99 Oxygen Delivery BiPAP Oxygen Flow Rate 04/18/24 08:20 04/18/24 08:20 04/18/24 08:35 Temperature Pulse Rate 72 72 74 Respiratory Rate 26 H 26 H 27 H Blood Pressure Pulse Oximetry 98 Oxygen Delivery BiPAP Oxygen Flow Rate Exam Narrative: General: Remain on positive pressure ventilation, confused HEENT: Atraumatic, normal cephalic Chest: Decreased breath sounds on in the right middle and lower lobes, no rales Heart: S1 and S2 heart, regular rate and rhythm, no murmurs Abdomen: Soft, nontender, bowel sounds present Extremities: No pedal edema, no skin rash Neurological: Patient is confused, moving all 4 extremities Results Labs and Meds 04/18/24 04:09 04/18/24 04:09 Lab results: Cardiac Enzymes 04/17/24 04/17/24 04/17/24 Range/Units 08:29 15:16 21:11 AST 38 H (14-36) U/L Troponin I 0.018 0.039 H* D (0.000-0.034) ng/mL 04/18/24 04/18/24 Range/Units 00:47 04:09 AST 40 H (14-36) U/L Troponin I 0.049 H* D (0.000-0.034) ng/mL Coagulation 04/17/24 04/17/24 04/18/24 Range/Units 15:16 21:11 08:17 PT 15.7 H (11.1-14.7) Seconds APTT 31.4 146.4 H 95.6 H (22.3-36.8) Seconds CBC 04/17/24 04/17/24 04/18/24 Range/Units 08:29 15:16 04:09 WBC 5.4 4.8 3.4 L (4.5-10.0) K/mm3 RBC 3.92 L 3.66 L 3.67 L (4.2-5.4) M/mm3 Hgb 11.3 L 10.6 L 10.7 L (12.0-15.0) g/dL Hct 38.7 35.9 L 36.0 L (37.0-47.0) % Plt Count 343 357 322 (150-375) k/mm3 Lymph # (Auto) 1.40 0.91 0.68 L (0.9-3.2) K/mm3 [place] # (Auto) 1.3 H 0.9 H 0.2 (0.1-0.6) K/mm3 Eos # (Auto) 0.0 0.0 0.0 (0-0.3) K/mm3 Baso # (Auto) 0.1 0.1 0.0 (0.0-0.1) K/mm3 Comprehensive Metabolic Panel 04/17/24 04/17/24 04/18/24 Range/Units 08:29 15:16 04:09 Sodium 137 136 L 135 L (137-145) mmol/L Potassium 3.6 3.6 4.6 (3.4-5.0) mmol/L Chloride 95 L 96 L 96 L (98-107) mmol/L Carbon Dioxide 38 H 32 H 32 H (22-30) mmol/L BUN 19 H 21 H 26 H (7-17) mg/dL Creatinine 0.69 L 0.57 L 0.65 L (0.7-1.0) mg/dL Glucose 93 125 H 109 (65-110) mg/dL Calcium 8.7 7.8 L 8.2 L (8.4-10.2) mg/dL AST 38 H 40 H (14-36) U/L ALT 16 17 (6-35) U/L Alkaline Phosphatase 57 54 (38-126) U/L Total Protein 7.0 7.0 (6.3-8.2) g/dL Albumin 3.6 3.5 (3.5-5.1) g/dL Intake and Output 04/17/24 04/18/24 04/18/24 23:59 07:59 15:59 Intake Total 134.2 100 50.3 Balance 134.2 100 50.3 Intake: IV 134.2 100 50.3 Heparin Sod/D5w 100 Units/ml 25 84.2 50.3 ,000 units In 250 ml @ 800 UNITS/HR 8 mls/hr IV CONT .Q24H GUILLERMO Rx#:[id number] Piperacilln/Julián 3.375GM/Ns50ml 50 100 3.375 gm In 50 ml @ 100 mls/hr IVPB Q6HR GUILLERMO Rx#:[id number] Oral 0 Other: # Unmeasured Voids 1 # Incontinent Voids 3 Patient Weight 04/18/24 23:59 Weight 63.3 kg Imaging and Cardiology Echo: image reviewed
--- NOTE | 2024-04-18 09:03 | IVDEFINITY ---
Prior to administration of IV Definity the patient was educated on the risks and benefits of the imaging enhancing agent including potential adverse side effects. The patient verbalized understanding. Allergies were verified. No exclusion criteria were identified and at least one of the following inclusion criteria were met: 1) physician request, 2) patient technically difficult to image (per the [place] [employer] guidelines of two or more segments not discernable within the apical view), or 3) questionable left ventricular function. ?
[2024-04-18 12:54] LABS: Vancomycin Trough 6.6 ug/mL (10.0-20.0)
[2024-04-18] MEDS: VANCOMYCIN 1,000 MG/NS 250 ML 1,000 MG/250 ML BAG 250 MG IVPB (13:51)
[2024-04-18] MEDS: DEXTROSE 5%/0.45% SOD CHL 1,000 ML 70 ML IV CONT (13:51)
[2024-04-18 14:03] LABS: Glucose Point of Care 134 mg/dl (65-105)
[2024-04-18 15:03] LABS: Expiratory Pressure 8 cmH2O; Inspiratory Pressure 20 cmH2O
--- NOTE | 2024-04-18 15:18 | PM.IMPN ---
Progress Note: A&P Assessment and Plan (1) Collapse of right lung: Code(s): J98.11 - Atelectasis Status: Acute Assessment and Plan: - CXR (04/15): Small right pleural effusion and collapse of the right middle and lower lobes. On the prior CT there appears to be a low-density region centrally within the collapsed right lower lobe which raises suspicion for either necrotic malignancy or infection with pulmonary abscess. Could consider diagnostic thoracentesis although the amount of fluid on prior CT appears relatively small. Would also consider further evaluation with bronchoscopy as there is occlusion of the bronchus intermedius on the prior CT. - CT chest (04/13): 1. Moderate right pleural effusion, possibly loculated. 2: Small pericardial effusion. - Sa02 93% on 2 liters nasal cannula. - Group Chief Operator Dr. Vizcarra with recommendations to start Zosyn, Vancomycin, Cornet Valve, 3% saline inhaled 3 times a day, and Duoneb to see if patient has infection that improves. All recommendations ordered. - 04/17/24:Patient feeling a little better today. 04/18: I assumed care today. Ordered thoracentesis with fluid analysis. Even though there was documentation saying there was a discussion with the but officially there was no consult placed for pulmonology. Today consulted pulmonology and advised about the BiPAP setting 16/11. Due to the risk of barotrauma would appreciate pulmonology recommendation. Patient echocardiogram is pending. Tomorrow morning around 4:00 a.m. advised to stop the heparin drip for thoracocentesis. Will discontinue vancomycin since nasal MRSA is negative. Will continue Zosyn and add doxycycline. Cardiology is planning to catheterization once she recovers from the acute illness. Started on D5W .45 normal saline. Echocardiogram shows normal ejection fraction 50-55%.Re-evaluated the patient at 5pm. Patient has been changed to AVAPS setting by . Discussed with the family members inside the room and given updates. (2) COPD (chronic obstructive pulmonary disease): Qualifiers: COPD type: unspecified COPD Qualified Code(s): J44.9 - Chronic obstructive pulmonary disease, unspecified Code(s): J44.9 - Chronic obstructive pulmonary disease, unspecified Status: Acute Assessment and Plan: Duonebs Cornet Valve (3) T12 burst fracture: Code(s): S22.081A - Stable burst fracture of T11-T12 vertebra, initial encounter for closed fracture Status: Chronic Assessment and Plan: Pain control PT/OT (4) Hypertension: Code(s): I10 - Essential (primary) hypertension Status: Acute Assessment and Plan: Continue Lisinopril 5 mg PO daily and Metoprolol 25 mg PO qam. Current blood pressure is 132/56. Plan Patient unsure of her daily medications. Reviewed medication list from halfway report on 08/18/2023, patient believes it is correct. May need further verification. Diet: Regular GI Prophylaxis: Not currently indicated DVT Prophylaxis: Not currently indicated Lines: Peripheral Code Status: DNR Subjective Date/time seen: 04/18/24 15:18 Interval history: I assumed care today. Ordered thoracentesis with fluid analysis. Even though there was documentation saying there was a discussion with the but officially there was no consult placed for pulmonology. Today consulted pulmonology and advised about the BiPAP setting 16/11. Due to the risk of barotrauma would appreciate pulmonology recommendation. Patient echocardiogram is pending. Tomorrow morning around 4:00 a.m. advised to stop the heparin drip for thoracocentesis. Will discontinue vancomycin since nasal MRSA is negative. Will continue Zosyn and add doxycycline. Cardiology is planning to catheterization once she recovers from the acute illness. Started on D5W .45 normal saline. Echocardiogram shows normal ejection fraction 50-55%. Re-evaluated the patient at 5pm. Patient has been changed to AVAPS setting by . Discussed with the family members inside the room and given updates. Review of Systems Review of Systems: All systems reviewed & are unremarkable except as noted in HPI and below Exam Narrative: A/Ox4, Decreased lung sounds in R middle and lower lobe. Const: General: comfortable, no acute distress and uncomfortable Other: , female, elderly, nontoxic appearance HENMT: Face/Nose/Sinus: Normal nares present Mouth: Yes moist mucous membranes Eyes: General: appearance normal, both eyes and all related structures Sclera: sclerae normal Pupils: Equal, round and reactive pupils present EOM: EOMs intact bilaterally Resp: Effort & Inspection: normal respiratory effort Other: Decreased breath sounds in the right lower lobe and right middle lobe. No other adventitious lung sounds. Cardio: Rate: regular rate Rhythm: regular rhythm Other: Telemetry- SR 80. GI: Auscultation: normal bowel sounds Other: Abdomen soft, nondistended, nontender. Normoactive bowel sounds in all quadrants. Skin: General skin exam: normal color and no rashes or lesions noted Wounds: no wounds Neuro: Cranial nerves: Yes Equal, round and reactive pupils present Speech: normal speech Motor exam (neuro): 5/5 motor strength present throughout Sensory Exam: normal sensation Other: A&O x4 Extrem: General: normal to inspection and no pedal edema Psych: Mental Status: mental status grossly normal Affect: normal affect Other: Good insight and judgment, pleasant Objective Data Vital Signs Vital Signs: Vital Signs - 24 hr 04/17/24 16:00 04/17/24 16:37 04/17/24 19:37 Temperature Pulse Rate 85 Respiratory Rate Blood Pressure 108/62 Pulse Oximetry 99 Oxygen Delivery Nasal Cannula Oxygen Flow Rate 3 Fraction of Inspired Oxygen 04/17/24 19:37 04/17/24 19:46 04/17/24 20:00 Temperature Pulse Rate 89 91 Respiratory Rate 20 20 Blood Pressure Pulse Oximetry 99 Oxygen Delivery Nasal Cannula Oxygen Flow Rate 4 Fraction of Inspired Oxygen 04/17/24 21:44 04/18/24 00:30 04/18/24 01:00 Temperature 97.6 F 98.1 F Pulse Rate 67 78 Respiratory Rate 22 H 17 Blood Pressure 122/66 109/53 L Pulse Oximetry 99 98 Oxygen Delivery BiPAP Oxygen Flow Rate Fraction of Inspired Oxygen 04/18/24 01:03 04/18/24 02:30 04/18/24 02:37 Temperature Pulse Rate 76 70 74 Respiratory Rate 21 H 24 H 23 H Blood Pressure Pulse Oximetry 97 Oxygen Delivery BiPAP Oxygen Flow Rate Fraction of Inspired Oxygen 04/18/24 03:09 04/18/24 03:25 04/18/24 04:00 Temperature 98.1 F Pulse Rate 74 74 Respiratory Rate 23 H 26 H Blood Pressure 123/52 L Pulse Oximetry 97 94 Oxygen Delivery BiPAP BiPAP Oxygen Flow Rate Fraction of Inspired Oxygen 04/18/24 04:00 04/18/24 05:20 04/18/24 08:00 Temperature Pulse Rate 71 76 77 Respiratory Rate 26 H 26 H Blood Pressure Pulse Oximetry 99 95 Oxygen Delivery BiPAP BiPAP Oxygen Flow Rate Fraction of Inspired Oxygen 32 04/18/24 08:00 04/18/24 08:00 04/18/24 08:03 Temperature Pulse Rate 72 72 71 Respiratory Rate 20 Blood Pressure 145/73 H Pulse Oximetry 99 Oxygen Delivery Oxygen Flow Rate Fraction of Inspired Oxygen 04/18/24 08:20 04/18/24 08:20 04/18/24 08:35 Temperature Pulse Rate 72 72 74 Respiratory Rate 26 H 26 H 27 H Blood Pressure Pulse Oximetry 98 Oxygen Delivery BiPAP Oxygen Flow Rate Fraction of Inspired Oxygen 04/18/24 10:37 04/18/24 13:51 04/18/24 13:51 Temperature Pulse Rate 73 77 77 Respiratory Rate 26 H 26 H 26 H Blood Pressure Pulse Oximetry 98 96 Oxygen Delivery BiPAP BiPAP Oxygen Flow Rate Fraction of Inspired Oxygen 04/18/24 14:09 Temperature Pulse Rate 70 Respiratory Rate 27 H Blood Pressure Pulse Oximetry Oxygen Delivery Oxygen Flow Rate Fraction of Inspired Oxygen Intake/Output Intake/Output: Intake & Output 04/15/24 04/16/24 04/17/24 04/18/24 23:59 23:59 23:59 23:59 Intake Total 8 764.2 150.3 Balance 2067 764.2 150.3 Meds/Results Medications: Active Medications Generic Name Dose Route Start Last Admin Trade Name Freq PRN Reason Stop Dose Admin Acetaminophen 650 mg 04/15/24 21:02 Acetaminophen 325 Mg Tablet PO Q6H PRN Mild Pain (1-3) or Fever Hydrocodone Bitart/Acetaminophen 1 tab 04/15/24 19:35 04/17/24 23:15 Hydrocodone/Acetaminophen (*Crx) 5-325 Mg Tablet PO 1 tab Q4H PRN Administration Pain Rated 4-6 Albuterol/Ipratropium 3 ml 04/16/24 14:00 04/18/24 13:51 Ipratropium 0.5 Mg/Albuterol Sulfate 2.5 Mg Ampul.Neb 3 Ml INHALATION 3 ml Q6HRT GUILLERMO Administration Fluticasone/Umeclidinium/Vilanterol 1 puff 04/18/24 08:00 Fluticasone/Umeclidin/Vilanter 100-62.5-25 Mcg Ellipta INHALATION DAILYRT GUILLERMO Heparin Sodium (Porcine) 4,500 units 04/17/24 14:56 Heparin Sodium 5,000 Units/Ml Vial IV PUSH PRN PRN aPTT less than 55 seconds Heparin Sodium (Porcine) 2,000 units 04/17/24 14:56 Heparin Sodium 5,000 Units/Ml Vial IV PUSH PRN PRN aPTT 55 - 70 seconds Piperacillin/Tazobactam/Dextrose 3.375 gm in 50 mls @ 100 mls/hr 04/16/24 11:00 04/18/24 11:48 Zosyn 3.375 Gm/Ns 50 Ml IVPB 100 mls/hr Q6HR GUILLERMO Administration Heparin Sodium/Dextrose 25,000 units in 250 mls @ 8 mls/hr 04/18/24 02:25 04/18/24 08:50 Heparin Sodium/D5w 100 Units/Ml IV CONT 800 units/hr .Q24H GUILLERMO 8 mls/hr Titration Protocol 800 UNITS/HR Vancomycin HCl 1,000 mg in 250 mls @ 250 mls/hr 04/18/24 13:00 04/18/24 13:51 Vancomycin 1,000 Mg/Ns 250 Ml IVPB 250 mls/hr Q12H GUILLERMO Administration Dextrose/Sodium Chloride 1,000 mls @ 70 mls/hr 04/18/24 13:25 04/18/24 13:51 Dextrose 5% Sodium Chloride 0.45% IV CONT 70 mls/hr .[id number] GUILLERMO Administration Lisinopril 5 mg 04/16/24 09:00 04/18/24 08:04 Lisinopril 5 Mg Tablet PO 5 mg QAM GUILLERMO Administration Methylprednisolone Sodium Succinate 60 mg 04/18/24 00:05 04/18/24 12:58 Methylprednisolone Sod Succ 125 Mg Vial IV PUSH 60 mg Q8HR GUILLERMO Administration Metoprolol Tartrate 12.5 mg 04/17/24 21:00 04/18/24 08:03 Metoprolol Tartrate 12.5 Mg Tablet PO 12.5 mg Q12HR GUILLERMO Administration Morphine Sulfate 2 mg 04/18/24 04:30 04/18/24 10:54 Morphine Sulfate (*Crx) 4 Mg/Ml Inj IV PUSH 2 mg Q4H PRN Administration Pain Rated 7-10 Sodium Chloride 6 ml 04/16/24 13:00 04/18/24 13:51 Sodium Chlor 3% 15 Ml Neb (Respiratory Therapy) INHALATION 6 ml TID GUILLERMO Administration Radiology Results: ITS Impressions Head CT 04/18/24 05:22 Impression: No intracranial abnormality seen. Left maxillary sinus disease. Chest X-Ray 04/18/24 13:40 IMPRESSION: 1. Mild pulmonary edema. 2. Small right pleural effusion. 3. Stable airspace opacities at the lung bases, worse than left, likely atelectasis. 4. Cardiomegaly. Labs Labs: Laboratory Results - last 24 hr 04/17/24 04/17/24 04/17/24 15:16 21:11 23:20 WBC 4.8 RBC 3.66 L Hgb 10.6 L Hct 35.9 L MCV 98.1 MCH 29.0 MCHC 29.5 L RDW 15.7 H Plt Count 357 MPV 8.5 Immature Gran % (Auto) 0.2 Neut % (Auto) 60.4 Lymph % (Auto) 18.8 [place] % (Auto) 19.0 H Eos % (Auto) 0.6 Baso % (Auto) 1.0 Lymph # (Auto) 0.91 [place] # (Auto) 0.9 H Eos # (Auto) 0.0 Baso # (Auto) 0.1 Abs Immat Gran (auto) 0.01 Absolute Neuts (auto) 2.9 Absolute Nucleated RBC 0.000 Nucleated RBC % 0.0 Platelet Estimate Adequate Hypochromasia 1+ Anisocytosis 1+ Schistocytes None seen PT 15.7 H INR 1.2 APTT 31.4 146.4 H Puncture Site ABG pH ABG pCO2 ABG pO2 ABG PO2/FiO2 Ratio ABG HCO3 ABG O2 Saturation ABG O2 Content ABG Base Excess A-a Gradient Oxyhemoglobin Carboxyhemoglobin Methemoglobin Reduced Hemoglobin Total Hemoglobin O2 Delivery Device O2 Liters/Min FiO2 Expiratory Pressure Inspiratory Pressure Sodium 136 L Potassium 3.6 Chloride 96 L Carbon Dioxide 32 H Anion Gap 8 BUN 21 H Creatinine 0.57 L Estim Creat Clear Calc 45 Estimated GFR > 60 Glucose 125 H POC Capillary Glucose 114 H Calcium 7.8 L Magnesium 2.0 Total Bilirubin AST ALT Alkaline Phosphatase Troponin I 0.018 0.039 H* D NT-Pro-B Natriuret Pep 1420 H Total Protein Albumin Vancomycin Trough 04/17/24 04/18/24 04/18/24 23:23 00:47 02:33 WBC RBC Hgb Hct MCV MCH MCHC RDW Plt Count MPV Immature Gran % (Auto) Neut % (Auto) Lymph % (Auto) [place] % (Auto) Eos % (Auto) Baso % (Auto) Lymph # (Auto) [place] # (Auto) Eos # (Auto) Baso # (Auto) Abs Immat Gran (auto) Absolute Neuts (auto) Absolute Nucleated RBC Nucleated RBC % Platelet Estimate Hypochromasia Anisocytosis Schistocytes PT INR APTT Puncture Site Right radial Right brachial ABG pH 7.275 L* 7.276 L* ABG pCO2 70.5 H* 63.1 H* ABG pO2 161.1 H 74.2 L ABG PO2/FiO2 Ratio 4.48 2.47 ABG HCO3 32.0 H 28.7 H ABG O2 Saturation 98.8 92.7 L ABG O2 Content 16.6 15.6 L ABG Base Excess 3.5 0.7 A-a Gradient 13.8 65.6 Oxyhemoglobin 98.7 93.8 Carboxyhemoglobin 0.6 Methemoglobin 0.1 Reduced Hemoglobin 0.6 Total Hemoglobin 11.7 L 11.8 L O2 Delivery Device Nasal cannula Bipap O2 Liters/Min 4.0 Not Reportable FiO2 36 30 Expiratory Pressure 6 Inspiratory Pressure 16 Sodium Potassium Chloride Carbon Dioxide Anion Gap BUN Creatinine Estim Creat Clear Calc Estimated GFR Glucose POC Capillary Glucose Calcium Magnesium Total Bilirubin AST ALT Alkaline Phosphatase Troponin I 0.049 H* D NT-Pro-B Natriuret Pep Total Protein Albumin Vancomycin Trough 04/18/24 04/18/24 04/18/24 04:09 04:36 08:17 WBC 3.4 L RBC 3.67 L Hgb 10.7 L Hct 36.0 L MCV 98.1 MCH 29.2 MCHC 29.7 L RDW 15.4 H Plt Count 322 MPV 8.5 Immature Gran % (Auto) 0.3 Neut % (Auto) 71.6 Lymph % (Auto) 20.3 [place] % (Auto) 7.2 Eos % (Auto) 0.0 Baso % (Auto) 0.6 Lymph # (Auto) 0.68 L [place] # (Auto) 0.2 Eos # (Auto) 0.0 Baso # (Auto) 0.0 Abs Immat Gran (auto) 0.01 Absolute Neuts (auto) 2.4 Absolute Nucleated RBC 0.000 Nucleated RBC % 0.0 Platelet Estimate Hypochromasia Anisocytosis Schistocytes PT INR APTT 95.6 H Puncture Site Right brachial ABG pH 7.300 L ABG pCO2 69.3 H* ABG pO2 84.0 ABG PO2/FiO2 Ratio 2.80 ABG HCO3 33.3 H ABG O2 Saturation 94.9 L ABG O2 Content 16.2 ABG Base Excess 5.0 A-a Gradient 48.5 Oxyhemoglobin 95.5 Carboxyhemoglobin Methemoglobin Reduced Hemoglobin Total Hemoglobin 12.0 O2 Delivery Device Bipap O2 Liters/Min Not Reportable FiO2 30 Expiratory Pressure 8 Inspiratory Pressure 20 Sodium 135 L Potassium 4.6 Chloride 96 L Carbon Dioxide 32 H Anion Gap 7 BUN 26 H Creatinine 0.65 L Estim Creat Clear Calc 40 Estimated GFR > 60 Glucose 109 POC Capillary Glucose Calcium 8.2 L Magnesium 2.2 Total Bilirubin 0.4 AST 40 H ALT 17 Alkaline Phosphatase 54 Troponin I NT-Pro-B Natriuret Pep Total Protein 7.0 Albumin 3.5 Vancomycin Trough 04/18/24 04/18/24 11:55 14:01 WBC RBC Hgb Hct MCV MCH MCHC RDW Plt Count MPV Immature Gran % (Auto) Neut % (Auto) Lymph % (Auto) [place] % (Auto) Eos % (Auto) Baso % (Auto) Lymph # (Auto) [place] # (Auto) Eos # (Auto) Baso # (Auto) Abs Immat Gran (auto) Absolute Neuts (auto) Absolute Nucleated RBC Nucleated RBC % Platelet Estimate Hypochromasia Anisocytosis Schistocytes PT INR APTT Puncture Site ABG pH ABG pCO2 ABG pO2 ABG PO2/FiO2 Ratio ABG HCO3 ABG O2 Saturation ABG O2 Content ABG Base Excess A-a Gradient Oxyhemoglobin Carboxyhemoglobin Methemoglobin Reduced Hemoglobin Total Hemoglobin O2 Delivery Device O2 Liters/Min FiO2 Expiratory Pressure Inspiratory Pressure Sodium Potassium Chloride Carbon Dioxide Anion Gap BUN Creatinine Estim Creat Clear Calc Estimated GFR Glucose POC Capillary Glucose 134 H Calcium Magnesium Total Bilirubin AST ALT Alkaline Phosphatase Troponin I NT-Pro-B Natriuret Pep Total Protein Albumin Vancomycin Trough 6.6 L Quality VTE Prophylaxis VTE prophylaxis: mechanical ordered Hospitalist MIPS Advance Care Plan I have confirmed that the patient's Advanced Care Plan is present, code status is documented, or surrogate decision maker is listed in patient medical record.: Yes Medication Reconciliation I have utilized all available resources to obtain, update and review the patients current medications (includes all prescriptions, OTC, herbals, cannabis, and nutritional supplements).: Yes
[2024-04-18 15:33] LABS: Partial Thromboplastin Time 82.3 Seconds (22.3-36.8)
[2024-04-18 15:34] LABS: Lactate Dehydrogenase 178 U/L (120-246)
--- NOTE | 2024-04-18 16:14 | PM.CNPUL ---
Assessment and Plan Assessment and plan (1) COPD (chronic obstructive pulmonary disease): Qualifiers: COPD type: unspecified COPD Qualified Code(s): J44.9 - Chronic obstructive pulmonary disease, unspecified Code(s): J44.9 - Chronic obstructive pulmonary disease, unspecified Status: Acute Assessment and Plan: Patient carries a history of COPD not on any oxygen the family states she is not on any inhalers but her home medicine list batool. She has a smoking history and her CT scan of the chest on 04/13/2024 shows no bullous emphysema. Plan: Patient has no wheezing currently. I will decrease her Solu-Medrol to 20 mg IV q.6. I will continue DuoNebs at q.6 hours. I will add budesonide 0.5 b.i.d.. I will discontinue her trelegy If she is on maximum inhaled corticosteroids, beta agonist and muscarinic antagonist with the above regimen. Patient has no focal infiltrates on her CT scan of the chest but does have a pleural effusion and is currently on Zosyn, vancomycin and doxycycline. Thoracentesis to exclude empyema. Discussed with Dr. Willson, will follow with you. (2) Respiratory failure with hypoxia and hypercapnia: Code(s): J96.91 - Respiratory failure, unspecified with hypoxia; J96.92 - Respiratory failure, unspecified with hypercapnia Status: Acute Assessment and Plan: Etiology of patient's hypoxemic and hypercarbic respiratory failure include COPD, pleural effusion, pneumonia. plan: The patient is do not intubate. she is willing to wear BiPAP her current settings were uncomfortable. I adjusted her her fullface mask and placed her on AVAPS mode and adjusted to comfort resulting in a rate of 20, tidal volume 500, EPAP 5, minimal inspiratory pressure 6, maximal inspiratory pressure 25, inspiratory time 0.8, rise of 1 and 30% FiO2. The patient says this is more comfortable. plan: Currently the patient is awake and alert and attempting to talk. I have told the bedside nurse that they can take her off AVAPS for break but she should wear her AVAPS tonight and I will check a blood gas in the morning. (3) Pleural effusion: Code(s): J90 - Pleural effusion, not elsewhere classified Status: Acute Assessment and Plan: Patient with CT scan on 04/13/2024 with a moderate right pleural effusion with some areas of loculation. Plan: Patient is scheduled for ultrasound-guided thoracentesis on 04/19/2024. I will check a chest x-ray in the morning and a chest x-ray postprocedure. Full chemistries, cell count, cytology, microbiology ordered. History of Present Illness History of Present Illness Consult date: 04/18/24 Chief complaint: pleural effusion lung collapse acute hypoxic resp Narrative: 04/18/2024: This is a new pulmonary consult for COPD with hypercarbic respiratory failure. 88-year-old with a history of hypertension, pulmonary hypertension, COPD. Patient is on BiPAP and cannot provide history. Patient's son in laws in the room and says that she is not on any inhalers and does not wear home oxygen. The patient presented to the hospital 04/15/2024 with weakness. White blood cell count was 8.3, creatinine 0.59. BNP 1420. MRSA swab negative, COVID, influenza and RSV swab negative. CT scan of the chest on 04/13 showed a moderate right pleural effusion with small pericardial effusion, Low-density central region with collapse of the right lower lobe. chest x-ray on 04/15 showed right pleural effusion with collapse of the right middle lobe and lower lobe. Patient was admitted to the hospital and started on antibiotics. On 04/17/2024 a rapid response was called for hypoxemic and hypercarbic respiratory failure with a blood gas on 4 L 7.28/71/161. Patient was placed on BiPAP 16/6 with blood gas 7.28/63/74. Patient was placed on BiPAP 20/8 with an ABG of 7.30/69/84. Patient had intermittent episodes of confusion. Stat head CT with no intracranial abnormality. 04/18/2024. Currently the patient is in the ICU as a IMU overflowed and she is on BiPAP rate of 26 breathing 20 8 times a minute pressures 20/8 with a tidal volume 330, inspiratory time 0.6 rise of 3 and 30% FiO2 with saturations 98%. She says that this is uncomfortable. I adjusted her her fullface mask and placed her on AVAPS mode and adjusted to comfort resulting in a rate of 20, tidal volume 500, EPAP 5, minimal inspiratory pressure 6, maximal inspiratory pressure 25, inspiratory time 0.8, rise of 1 and 30% FiO2. The patient says this is more comfortable. DATA: 04/18/24: Summary 1. Left ventricular systolic function is normal, estimated at 50-55%. 2. There is moderately increased left ventricular wall thickness. 3. Left ventricular septal wall motion is abnormal with septal motion related to bundle branch block. 4. The left ventricular diastolic function is grade I diastolic dysfunction. 5. Left atrial chamber dimension is mildly enlarged. 6. There is mild aortic valve calcification. 7. There is trace tricuspid valve regurgitation. 8. No pulmonary hypertension, estimated pulmonary arterial systolic pressure is 28 mmHg. Right Ventricle Right ventricular chamber dimension is normal. Right ventricular systolic function is normal. Left Atria Left atrial chamber dimension is mildly enlarged. Right Atria Right atrial chamber dimension is normal. 04/13/2024: EXAMINATION: CT diagnostic chest wo con INDICATION: Abnormal chest x-ray TECHNIQUE: Computed tomography (CT) of the chest was performed without intravenous contrast. The dose-length product was 149.68 mGy-cm. Automated exposure control and iterative reconstruction technique were employed. COMPARISON: Chest x-ray dated 04/11/2019 FINDINGS: Small pericardial effusion. There is right pleural effusion which is may be loculated. There is evidence of chronic granulomatous disease with underlying compressive atelectasis in the right lung base. No endobronchial lesions. No pneumothorax. There is motion artifact limiting evaluation for subtle pulmonary nodules. No pneumothorax. There is a chronic burst fracture of T12. There is moderate thoracic spondylosis. Calcified granulomas of the spleen. IMPRESSION: 1. Moderate right pleural effusion, possibly loculated. 2: Small pericardial effusion. Review of Systems Review of Systems: ROS unobtainable: Yes unobtainable due to medical condition [facility] Past Medical History Medical History (Updated 04/18/24 @ 17:04 by Yves Pack MD) COPD (chronic obstructive pulmonary disease) Insomnia Hypertension, essential Hard of hearing Pulmonary hypertension B12 deficiency Social History Social History Smoking status: Current some day smoker Tobacco type: cigarettes Additional smoking assessment comments: ONLY A COUPLE OF TIMES PER MONTH Alcohol intake: never Substance use: never Do You Feel Safe in your Home?: Yes Lack of Transportation: No Lack of Food: Never True Current Housing: I Have Housing Concerned About Future Housing: No Difficulty Paying Gas/Electric Bills: No Difficulty Paying for Meds: No Currently Unemployed: No Education: High School Diploma/GED Difficulty w/ Childcare or Family Care: No Living arrangements: alone Spiritual care concerns: No Meds Home Medications and Allergies Home Medications ?Medication ?Instructions ?Recorded ?Confirmed ?Type diphenoxylate-atropine 2.5 1 tablet PO TID PRN diarrhea #20 04/06/19 04/15/24 Rx mg-0.025 mg tablet (Lomotil) tabs colestipol 5 gram oral granules 5 g PO DAILY diarrhea #500 grams 02/06/22 04/15/24 Rx (Colestid) lisinopril 5 mg tablet 5 mg PO DAILY 09/04/22 04/15/24 History metoprolol succinate 25 mg 25 mg PO DAILY 09/04/22 04/15/24 History tablet,extended release 24 hr albuterol sulfate 90 mcg/actuation See Rx Instructions .Route 07/10/23 04/15/24 Rx aerosol inhaler .COMPLEX #9 grams meloxicam 15 mg tablet 15 mg PO DAILY back pain #30 tabs 12/16/23 04/15/24 Rx mecobalamin (vitamin B12) 1,000 1,000 mcg sublingual DAILY b12 02/19/24 04/15/24 Rx mcg disintegrating deficiency #90 tabs tablet,sublingual trazodone 50 mg tablet See Rx Instructions PO .HS 03/24/24 04/15/24 Rx insomnia #60 tabs budesonide 160 mcg-glycopyr 9 2 inh inhalation BID #10.7 grams 04/15/24 04/15/24 Rx mcg-formot 4.8 mcg/actuation HFA inhaler (Breztri Guide[employer]phere) Allergies Allergy/AdvReac Type Severity Reaction Status Date / Time clarithromycin Allergy Unknown Unknown Verified 10/13/23 11:18 Vital Signs Vital Signs - 24 hr 04/17/24 16:37 04/17/24 19:37 04/17/24 19:37 Temperature Pulse Rate 89 Respiratory Rate 20 Blood Pressure 108/62 Pulse Oximetry 99 Oxygen Delivery Nasal Cannula Oxygen Flow Rate 3 Fraction of Inspired Oxygen 04/17/24 19:46 04/17/24 20:00 04/17/24 21:44 Temperature 36.4 C Pulse Rate 91 67 Respiratory Rate 20 22 H Blood Pressure 122/66 Pulse Oximetry 99 99 Oxygen Delivery Nasal Cannula Oxygen Flow Rate 4 Fraction of Inspired Oxygen 04/18/24 00:30 04/18/24 01:00 04/18/24 01:03 Temperature 36.7 C Pulse Rate 78 76 Respiratory Rate 17 21 H Blood Pressure 109/53 L Pulse Oximetry 98 97 Oxygen Delivery BiPAP BiPAP Oxygen Flow Rate Fraction of Inspired Oxygen 04/18/24 02:30 04/18/24 02:37 04/18/24 03:09 Temperature Pulse Rate 70 74 74 Respiratory Rate 24 H 23 H 23 H Blood Pressure Pulse Oximetry 97 Oxygen Delivery BiPAP Oxygen Flow Rate Fraction of Inspired Oxygen 04/18/24 03:25 04/18/24 04:00 04/18/24 04:00 Temperature 36.7 C Pulse Rate 74 71 Respiratory Rate 26 H Blood Pressure 123/52 L Pulse Oximetry 94 Oxygen Delivery BiPAP Oxygen Flow Rate Fraction of Inspired Oxygen 04/18/24 05:20 04/18/24 08:00 04/18/24 08:00 Temperature Pulse Rate 76 77 72 Respiratory Rate 26 H 26 H Blood Pressure Pulse Oximetry 99 95 Oxygen Delivery BiPAP BiPAP Oxygen Flow Rate Fraction of Inspired Oxygen 32 04/18/24 08:00 04/18/24 08:03 04/18/24 08:20 Temperature Pulse Rate 72 71 72 Respiratory Rate 20 26 H Blood Pressure 145/73 H Pulse Oximetry 99 98 Oxygen Delivery BiPAP Oxygen Flow Rate Fraction of Inspired Oxygen 04/18/24 08:20 04/18/24 08:35 04/18/24 10:37 Temperature Pulse Rate 72 74 73 Respiratory Rate 26 H 27 H 26 H Blood Pressure Pulse Oximetry 98 Oxygen Delivery BiPAP Oxygen Flow Rate Fraction of Inspired Oxygen 04/18/24 13:51 04/18/24 13:51 04/18/24 14:09 Temperature Pulse Rate 77 77 70 Respiratory Rate 26 H 26 H 27 H Blood Pressure Pulse Oximetry 96 Oxygen Delivery BiPAP Oxygen Flow Rate Fraction of Inspired Oxygen Exam Const: General: comfortable HENMT: Head: normal to inspection Ears: hearing grossly normal bilaterally Eyes: General: appearance normal, both eyes and all related structures Neck: Neck: normal visual inspection Chest: Chest palpation & inspection: normal inspection of the chest Resp: Effort & Inspection: normal respiratory effort and able to speak in complete sentences Auscultation: no crackles, no rales, no rhonchi, no wheezes and lung sounds not diminished Cardio: Jugular venous distension: no JVD GI: Inspection: normal to inspection GI Palp: No abdominal tenderness Skin: General skin exam: normal color Neuro: General: oriented to person, oriented to place and oriented to time Extrem: General: normal to inspection Psych: Appearance: grossly normal Results Laboratory Findings 04/18/24 04:09 04/18/24 04:09 ABG, PT/INR, D-dimer: ABG ABG pH 7.300 (7.350-7.450) L 04/18/24 04:36 ABG pCO2 69.3 mmHg (35.0-45.0) H* 04/18/24 04:36 ABG pO2 84.0 mmHg (80.0-100.0) 04/18/24 04:36 ABG O2 Saturation 94.9 % (95.0-100.0) L 04/18/24 04:36 PT/INR, D-dimer PT 15.7 Seconds (11.1-14.7) H 04/17/24 15:16 INR 1.2 04/17/24 15:16 Abnormal lab findings: Abnormal Labs 04/15/24 04/15/24 04/15/24 02:22 16:14 16:15 WBC RBC Hgb Hct MCHC 30.7 L RDW 15.7 H Plt Count 436 H Neut % (Auto) 80.3 H Lymph % (Auto) 4.8 L Martin % (Auto) 11.8 H Lymph # (Auto) 0.40 L Martin # (Auto) 1.0 H PT APTT ABG pH ABG pCO2 ABG pO2 ABG HCO3 ABG O2 Saturation ABG O2 Content Total Hemoglobin Sodium Chloride 96 L Carbon Dioxide 34 H BUN Creatinine 0.59 L Glucose 130 H POC Capillary Glucose Calcium AST Troponin I C-Reactive Protein 3.8 H NT-Pro-B Natriuret Pep Urine Protein 1+ H Urine Ketones Trace H Urine RBC 3-5 H Vancomycin Trough 04/16/24 04/17/24 04/17/24 11:45 08:29 15:16 WBC RBC 3.87 L 3.92 L 3.66 L Hgb 11.1 L 11.3 L 10.6 L Hct 36.9 L 35.9 L MCHC 30.1 L 29.2 L 29.5 L RDW 15.6 H 15.8 H 15.7 H Plt Count Neut % (Auto) Lymph % (Auto) 14.0 L Martin % (Auto) 22.8 H 23.2 H 19.0 H Lymph # (Auto) 0.80 L Martin # (Auto) 1.3 H 1.3 H 0.9 H PT 15.7 H APTT ABG pH ABG pCO2 ABG pO2 ABG HCO3 ABG O2 Saturation ABG O2 Content Total Hemoglobin Sodium 136 L Chloride 96 L 95 L 96 L Carbon Dioxide 35 H 38 H 32 H BUN 22 H 19 H 21 H Creatinine 0.52 L 0.69 L 0.57 L Glucose 115 H 125 H POC Capillary Glucose Calcium 7.8 L AST 40 H 38 H Troponin I C-Reactive Protein NT-Pro-B Natriuret Pep 1420 H Urine Protein Urine Ketones Urine RBC Vancomycin Trough 04/17/24 04/17/24 04/17/24 21:11 23:20 23:23 WBC RBC Hgb Hct MCHC RDW Plt Count Neut % (Auto) Lymph % (Auto) Martin % (Auto) Lymph # (Auto) Martin # (Auto) PT APTT 146.4 H ABG pH 7.275 L* ABG pCO2 70.5 H* ABG pO2 161.1 H ABG HCO3 32.0 H ABG O2 Saturation ABG O2 Content Total Hemoglobin 11.7 L Sodium Chloride Carbon Dioxide BUN Creatinine Glucose POC Capillary Glucose 114 H Calcium AST Troponin I 0.039 H* D C-Reactive Protein NT-Pro-B Natriuret Pep Urine Protein Urine Ketones Urine RBC Vancomycin Trough 04/18/24 04/18/24 04/18/24 00:47 02:33 04:09 WBC 3.4 L RBC 3.67 L Hgb 10.7 L Hct 36.0 L MCHC 29.7 L RDW 15.4 H Plt Count Neut % (Auto) Lymph % (Auto) Martin % (Auto) Lymph # (Auto) 0.68 L Martin # (Auto) PT APTT ABG pH 7.276 L* ABG pCO2 63.1 H* ABG pO2 74.2 L ABG HCO3 28.7 H ABG O2 Saturation 92.7 L ABG O2 Content 15.6 L Total Hemoglobin 11.8 L Sodium 135 L Chloride 96 L Carbon Dioxide 32 H BUN 26 H Creatinine 0.65 L Glucose POC Capillary Glucose Calcium 8.2 L AST 40 H Troponin I 0.049 H* D C-Reactive Protein NT-Pro-B Natriuret Pep Urine Protein Urine Ketones Urine RBC Vancomycin Trough 04/18/24 04/18/24 04/18/24 04:36 08:17 11:55 WBC RBC Hgb Hct MCHC RDW Plt Count Neut % (Auto) Lymph % (Auto) Martin % (Auto) Lymph # (Auto) Martin # (Auto) PT APTT 95.6 H ABG pH 7.300 L ABG pCO2 69.3 H* ABG pO2 ABG HCO3 33.3 H ABG O2 Saturation 94.9 L ABG O2 Content Total Hemoglobin Sodium Chloride Carbon Dioxide BUN Creatinine Glucose POC Capillary Glucose Calcium AST Troponin I C-Reactive Protein NT-Pro-B Natriuret Pep Urine Protein Urine Ketones Urine RBC Vancomycin Trough 6.6 L 04/18/24 04/18/24 14:01 15:14 WBC RBC Hgb Hct MCHC RDW Plt Count Neut % (Auto) Lymph % (Auto) Martin % (Auto) Lymph # (Auto) Martin # (Auto) PT APTT 82.3 H ABG pH ABG pCO2 ABG pO2 ABG HCO3 ABG O2 Saturation ABG O2 Content Total Hemoglobin Sodium Chloride Carbon Dioxide BUN Creatinine Glucose POC Capillary Glucose 134 H Calcium AST Troponin I C-Reactive Protein NT-Pro-B Natriuret Pep Urine Protein Urine Ketones Urine RBC Vancomycin Trough Diagnostic Findings Additional studies: ITS Impressions Chest X-Ray 04/15/24 16:37 IMPRESSION: 1. Small right pleural effusion and collapse of the right middle and lower lobes. On the prior CT there appears to be a low-density region centrally within the collapsed right lower lobe which raises suspicion for either necrotic malignancy or infection with pulmonary abscess. Could consider diagnostic thoracentesis although the amount of fluid on prior CT appears relatively small. Would also consider further evaluation with bronchoscopy as there is occlusion of the bronchus intermedius on the prior CT. Head CT 04/18/24 05:22 Impression: No intracranial abnormality seen. Left maxillary sinus disease. Chest X-Ray 04/18/24 05:37 Impression: Small to moderate pleural effusion. Pulmonary artery hypertension versus central venous congestive change. Chest X-Ray 04/18/24 13:40 IMPRESSION: 1. Mild pulmonary edema. 2. Small right pleural effusion. 3. Stable airspace opacities at the lung bases, worse than left, likely atelectasis. 4. Cardiomegaly.
[2024-04-18] MEDS: DOXYCYCLINE 100 MG/NS 100 ML 100 MG/100 ML BAG IVPB (17:42)
[2024-04-18] MEDS: methylPREDNISolone SOD SUCC 40 MG VIAL 20 MG IV PUSH ×2 (17:44→23:02)
[2024-04-18 20:08] LABS: Glucose Point of Care 135 mg/dl (65-105)
[2024-04-18] MEDS: HYDROcodone/acetaminophen (*CRX) 5-325 MG TABLET 1 TAB PO (20:09)
[2024-04-18] MEDS: BUDESONIDE RESPULE NEB 0.5 MG/2 ML AMP INHALATION (20:50)
--- NOTE | 2024-04-18 22:09 | PC.NURSE ---
Call from [place] in ultrasound. Plan to take patient for thoracentesis at 0930. Turn heparin drip off at midnight.
[2024-04-18 23:13] LABS: Glucose Point of Care 161 mg/dl (65-105)
[2024-04-19] VITALS (27 sets, daily range): BP systolic 93–141; BP diastolic 50–112; PULSE 59–138; RESP 13–26; TEMP 36.2–36.7; O2SAT 94–100
[2024-04-19] MEDS: MORPHINE SULFATE (*CRX) 4 MG/ML INJ 2 MG IV PUSH ×4 (00:35→20:13)
[2024-04-19] MEDS: IPRATROPIUM 0.5 MG/ALBUTEROL SULFATE 2.5 MG AMPUL.NEB 3 ML INHALATION ×2 (02:21→07:33)
--- NOTE | 2024-04-19 02:52 | ECG_ITS ---
Test Date: 2024-04-19 02:58:32 Measurements Intervals [place] Rate: 130 P: 0 [place]: 0 QRS: -35 QRSD: 145 T: 95 QT: 340 QTc: 501 Interpretive Statements ATRIAL FIBRILLATION WITH RAPID VENTRICULAR RESPONSE MARKED LEFT AXIS DEVIATION [QRS AXIS < -30] INTRAVENTRICULAR CONDUCTION DELAY [130+ ms QRS DURATION] Compared to ECG 04/18/2024 04:26:21 Sinus rhythm no longer present Myocardial infarct finding no longer present Electronically Signed On 04-19-2024 10:44:43 TELEPHONE MECHANIC by Neil To M.D.
[2024-04-19 03:39] LABS: Glucose Point of Care 154 mg/dl (65-105)
[2024-04-19] MEDS: AMIODARONE 150 MG/D5W 100 ML 150 MG/100 ML BAG 600 MG IV CONT (03:53)
[2024-04-19] MEDS: DOXYCYCLINE 100 MG/NS 100 ML 100 MG/100 ML BAG IVPB ×2 (04:00→17:09)
[2024-04-19] MEDS: AMIODARONE 360 MG/D5W 200 ML 360 MG/200 ML BAG 33.33 MG IV CONT (04:05)
[2024-04-19 04:44] LABS: Alveolar/Arterial O2 Gradient 86.9 mmHg; Base Excess ABG -0.5 mEq/l (+/-2.0); Fractional Inspired Oxygen 32 %; HCO3 ABG 26.4 mEq/l (22.0-26.0); Oxygen Content ABG 15.6 %vol (16.0-22.0); Oxygen Saturation ABG 94.4 % (95.0-100.0); Oxyhemoglobin 94.5 % THb (90.0-100.0); PCO2 ABG 53.6 mmHg (35.0-45.0); PO2 ABG 78.6 mmHg (80.0-100.0); PO2 FiO2 Ratio Arterial Blood 2.46 %; Total Hemoglobin 11.7 g/dL (12.0-18.0)
[2024-04-19 04:45] LABS: Device NASAL CANNULA; Site Drawn RIGHT BRACHIAL
[2024-04-19 04:59] LABS: Hemoglobin 10.8 g/dL (12.0-15.0); Immature Granulocyte Absolute 0.01 K/mm3 (0.00-0.031); Immature Granulocyte Percent A 0.2 % (0-0.5); Lymphocytes Absolute Auto 0.78 K/mm3 (0.9-3.2); Lymphocytes Percent Auto 13.6 % (18.3-44.2); Mean Corpuscular Volume 96.5 fl (80-100); Mean Platelet Volume 8.6 fl (7.4-10.4); Monocytes Absolute Auto 0.5 K/mm3 (0.1-0.6); Monocytes Percent Auto 8.5 % (2.6-8.5); Neutrophils Absolute Auto 4.5 K/mm3 (1.3-6.7); Neutrophils Percent Auto 77.7 % (45.5-73.1); Platelet Count Result 334 k/mm3 (150-375); Red Blood Count 3.73 M/mm3 (4.2-5.4); Red Cell Distribution Width 14.9 % (11.5-14.5); White Blood Count 5.7 K/mm3 (4.5-10.0)
[2024-04-19] MEDS: methylPREDNISolone SOD SUCC 40 MG VIAL 20 MG IV PUSH (05:03)
[2024-04-19] MEDS: PIPERACILLN/TAZ 3.375GM/NS50ML 3.375 GM/50 ML BAG IVPB ×3 (05:03→18:42)
[2024-04-19 05:24] LABS: Alanine Aminotransferase 18 U/L (6-35); Albumin Level 3.3 g/dL (3.5-5.1); Alkaline Phosphatase 51 U/L (38-126); Anion Gap 6 mmol/L (4-12); Aspartate Amino Transferase 35 U/L (14-36); Bilirubin,Total 0.4 mg/dL (0.2-1.3); Blood Urea Nitrogen 32 mg/dL (7-17); Calcium 8.4 mg/dL (8.4-10.2); Carbon Dioxide 33 mmol/L (22-30); Chloride 97 mmol/L (98-107); Estimated CRCL calculation 41 ml/min; Estimated Glomerular Filt Rate > 60; Glucose 186 mg/dL (65-110); Lactate Dehydrogenase 174 U/L (120-246); Magnesium 2.2 mg/dL (1.6-2.3); Potassium 3.9 mmol/L (3.4-5.0); Sodium 136 mmol/L (137-145)
[2024-04-19] MEDS: BUDESONIDE RESPULE NEB 0.5 MG/2 ML AMP INHALATION ×2 (07:33→19:19)
[2024-04-19] MEDS: SODIUM CHLOR 3% 15 ML NEB (RESPIRATORY THERAPY) 6 ML INHALATION ×2 (07:33→14:31)
--- NOTE | 2024-04-19 07:33 | PC.NURSE ---
AKTY Smith and this RN obtained verbal phone consent for thoracentesis from patient's ZACHAEnma. Enma updated on overnight events, including patients continuing requests to be made comfortable. WARREN Norwood states she will discuss with family and plans to initiate comfort care measures with medical team today following thoracentesis
[2024-04-19] MEDS: HYDROcodone/acetaminophen (*CRX) 5-325 MG TABLET 1 TAB PO (08:38)
[2024-04-19] MEDS: lisinopriL 5 MG TABLET PO (08:38)
[2024-04-19] MEDS: METOPROLOL TARTRATE 12.5 MG TABLET PO (08:38)
[2024-04-19 08:50] LABS: Glucose Point of Care 174 mg/dl (65-105)
[2024-04-19] MEDS: AMIODARONE 360 MG/D5W 200 ML 360 MG/200 ML BAG 16.67 MG IV CONT (10:22)
--- NOTE | 2024-04-19 10:30 | P.PNPL_ITS ---
Progress Note: A&P Assessment and Plan (1) COPD (chronic obstructive pulmonary disease): Qualifiers: COPD type: unspecified COPD Qualified Code(s): J44.9 - Chronic obstructive pulmonary disease, unspecified Code(s): J44.9 - Chronic obstructive pulmonary disease, unspecified Status: Acute Assessment and Plan: Patient carries a history of COPD not on any oxygen the family states she is not on any inhalers but her home medicine list [place]. She has a smoking history and her CT scan of the chest on 04/13/2024 shows no bullous emphysema. Plan: Patient has no wheezing currently. I will decrease her Solu-Medrol to 20 mg IV q.6. I will continue DuoNebs at q.6 hours. I will add budesonide 0.5 b.i.d.. I will discontinue her trelegy If she is on maximum inhaled corticosteroids, beta agonist and muscarinic antagonist with the above regimen. Patient has no focal infiltrates on her CT scan of the chest but does have a pleural effusion and is currently on Zosyn, vancomycin and doxycycline. Thoracentesis to exclude empyema. 04/19/24: Patient currently is on 3 L nasal cannula saturations 99%. Overall she feels her breathing is better. She developed AFib but with RVR was started on IV amiodarone last night. White blood cell count is 5.7, creatinine is 0.62, she was positive 34 mL yesterday with cumulative positive 3.6 L since admission. Her weight is 61.9 on admission and today 63.7. Chest x-ray today shows a moderate right pleural effusion. Plan: Patient with a few wheezes and she developed AFib with RVR. I will continue ipratropium 0.5 mg q.6 hours, I will discontinue albuterol, I will continue budesonide 0.5 b.i.d.. I will change her to prednisone 40 a day and discontinue Solu-Medrol. Patient is scheduled for thoracentesis later today. Will continue Zosyn day 4, and doxycycline, day 2. S/p vancomycin 04/16 through 04/18. per bedside nurse the plan is for thoracentesis and then to re-evaluate treatment goals and level of care. Discussed with Dr. Mcgarry, will follow with you. (2) Respiratory failure with hypoxia and hypercapnia: Code(s): J96.91 - Respiratory failure, unspecified with hypoxia; J96.92 - Respiratory failure, unspecified with hypercapnia Status: Acute Assessment and Plan: Etiology of patient's hypoxemic and hypercarbic respiratory failure include COPD, pleural effusion, pneumonia. plan: The patient is do not intubate. she is willing to wear BiPAP her current settings were uncomfortable. I adjusted her her fullface mask and placed her on AVAPS mode and adjusted to comfort resulting in a rate of 20, tidal volume 500, EPAP 5, minimal inspiratory pressure 6, maximal inspiratory pressure 25, inspiratory time 0.8, rise of 1 and 30% FiO2. The patient says this is more comfortable. plan: Currently the patient is awake and alert and attempting to talk. I have told the bedside nurse that they can take her off AVAPS for break but she should wear her AVAPS tonight and I will check a blood gas in the morning. 04/19/24: Patient tells me she could not tolerate the noninvasive ventilator last night. The nurse states that she got agitated and continued to pull the machine off throughout the night. At most she wore at a 1/2 hour. She tells me she does not think she can wear this in the future. ABG on 3 L nasal cannula 7.. Plan: patient unable to tolerate noninvasive ventilation. Will continue oxygen with goal saturation 90-94% as tolerated. (3) Pleural effusion: Code(s): J90 - Pleural effusion, not elsewhere classified Status: Acute Assessment and Plan: Patient with CT scan on 04/13/2024 with a moderate right pleural effusion with some areas of loculation. Plan: Patient is scheduled for ultrasound-guided thoracentesis on 04/19/2024. I will check a chest x-ray in the morning and a chest x-ray postprocedure. Full chemistries, cell count, cytology, microbiology ordered. 04/19/24: Chest x-ray with moderate right pleural effusion. Plan: Patient to get thoracentesis later today. Subjective Date/time seen: 04/19/24 10:30 Interval history: 04/18/2024: This is a new pulmonary consult for COPD with hypercarbic respiratory failure. 88-year-old with a history of hypertension, pulmonary hypertension, COPD. Patient is on BiPAP and cannot provide history. Patient's son in laws in the room and says that she is not on any inhalers and does not wear home oxygen. The patient presented to the hospital 04/15/2024 with weakness. White blood cell count was 8.3, creatinine 0.59. BNP 1420. MRSA swab negative, COVID, influenza and RSV swab negative. CT scan of the chest on 04/13 showed a moderate right pleural effusion with small pericardial effusion, Low-density central region with collapse of the right lower lobe. chest x-ray on 04/15 showed right pleural effusion with collapse of the right middle lobe and lower lobe. Patient was admitted to the hospital and started on antibiotics. On 04/17/2024 a rapid response was called for hypoxemic and hypercarbic respiratory failure with a blood gas on 4 L 7.28/71/161. Patient was placed on BiPAP 16/6 with blood gas 7.28/63/74. Patient was placed on BiPAP 20/8 with an ABG of 7.30/69/84. Patient had intermittent episodes of confusion. Stat head CT with no intracranial abnormality. 04/18/2024. Currently the patient is in the ICU as a IMU overflowed and she is on BiPAP rate of 26 breathing 20 8 times a minute pressures 20/8 with a tidal volume 330, inspiratory time 0.6 rise of 3 and 30% FiO2 with saturations 98%. She says that this is uncomfortable. I adjusted her her fullface mask and placed her on AVAPS mode and adjusted to comfort resulting in a rate of 20, tidal volume 500, EPAP 5, minimal inspiratory pressure 6, maximal inspiratory pressure 25, inspiratory time 0.8, rise of 1 and 30% FiO2. The patient says this is more comfortable. 04/19/24: Patient currently is on 3 L nasal cannula saturations 99%. Patient tells me she could not tolerate the noninvasive ventilator last night. The nurse states that she got agitated and continued to pull the machine off throughout the night. At most she wore at a 1/2 hour. She tells me she does not think she can wear this in the future. Overall she feels her breathing is better. She developed AFib but with RVR was started on IV amiodarone last night. White blood cell count is 5.7, creatinine is 0.62, she was positive 34 mL yesterday with cumulative positive 3.6 L since admission. Her weight is 61.9 on admission and today 63.7. Chest x-ray today shows a moderate right pleural effusion. ABG on 3 L nasal cannula 7.. DATA: 04/18/24: Summary 1. Left ventricular systolic function is normal, estimated at 50-55%. 2. There is moderately increased left ventricular wall thickness. 3. Left ventricular septal wall motion is abnormal with septal motion related to bundle branch block. 4. The left ventricular diastolic function is grade I diastolic dysfunction. 5. Left atrial chamber dimension is mildly enlarged. 6. There is mild aortic valve calcification. 7. There is trace tricuspid valve regurgitation. 8. No pulmonary hypertension, estimated pulmonary arterial systolic pressure is 28 mmHg. Right Ventricle Right ventricular chamber dimension is normal. Right ventricular systolic function is normal. Left Atria Left atrial chamber dimension is mildly enlarged. Right Atria Right atrial chamber dimension is normal. 04/13/2024: EXAMINATION: CT diagnostic chest wo con INDICATION: Abnormal chest x-ray TECHNIQUE: Computed tomography (CT) of the chest was performed without intravenous contrast. The dose-length product was 149.68 mGy-cm. Automated exposure control and iterative reconstruction technique were employed. COMPARISON: Chest x-ray dated 04/11/2019 FINDINGS: Small pericardial effusion. There is right pleural effusion which is may be loculated. There is evidence of chronic granulomatous disease with underlying compressive atelectasis in the right lung base. No endobronchial lesions. No pneumothorax. There is motion artifact limiting evaluation for subtle pulmonary nodules. No pneumothorax. There is a chronic burst fracture of T12. There is moderate thoracic spondylosis. Calcified granulomas of the spleen. IMPRESSION: 1. Moderate right pleural effusion, possibly loculated. 2: Small pericardial effusion. Review of Systems Constitutional: Constitutional: Reports no additional constitutional complaints Eyes: Eyes: Reports no additional eye complaints ENT: Reports system reviewed and no additional complaints, except as documented Cardiovascular: Cardiovascular: Reports no additional cardiovascular complaints Respiratory: Respiratory: Reports no additional respiratory complaints Gastrointestinal: Gastrointestinal: Reports no additional gastrointestinal complaints Musculoskeletal: Musculoskeletal: Reports no additional musculoskeletal complaints Neurologic: Reports system reviewed and no additional complaints, except as documented Psychiatric: Psychiatric: Reports no additional psychiatric complaints Endocrine: Endocrine: Reports no additional endocrine complaints Hematologic/Lymphatic: Hematologic/Lymphatic: Reports no additional hematolog ic/lymphatic complaints Allergic/Immunologic: Allergic/Immunologic: Reports no additional allergic/immunologic complaints Exam Const: General: comfortable Orientation/consciousness: oriented to person, oriented to place and oriented to time HENMT: Head: normal to inspection Ears: hearing grossly normal bilaterally Eyes: General: appearance normal, both eyes and all related structures Neck: Neck: normal visual inspection Chest: Chest palpation & inspection: normal inspection of the chest Resp: Effort & Inspection: normal respiratory effort and able to speak in complete sentences Auscultation: no crackles, no rales, no rhonchi, wheezes and lung sounds not diminished Cardio: Jugular venous distension: no JVD GI: Inspection: normal to inspection Skin: General skin exam: normal color Neuro: General: oriented to person, oriented to place and oriented to time Extrem: General: normal to inspection Psych: Appearance: grossly normal Objective Data Vital Signs Vital Signs: Vital Signs - 24 hr 04/18/24 10:37 04/18/24 12:00 04/18/24 12:00 Temperature Pulse Rate 73 72 69 Respiratory Rate 26 H 24 H Blood Pressure Pulse Oximetry 98 96 Oxygen Delivery BiPAP BiPAP Oxygen Flow Rate Fraction of Inspired Oxygen 32 04/18/24 12:00 04/18/24 13:51 04/18/24 13:51 Temperature Pulse Rate 110 H 77 77 Respiratory Rate 20 26 H 26 H Blood Pressure 130/85 Pulse Oximetry 97 96 Oxygen Delivery BiPAP Oxygen Flow Rate Fraction of Inspired Oxygen 04/18/24 14:09 04/18/24 16:00 04/18/24 16:00 Temperature Pulse Rate 70 73 110 H Respiratory Rate 27 H 26 H Blood Pressure Pulse Oximetry 96 Oxygen Delivery BiPAP Oxygen Flow Rate Fraction of Inspired Oxygen 32 04/18/24 16:00 04/18/24 16:25 04/18/24 17:48 Temperature Pulse Rate 110 H 71 69 Respiratory Rate 18 26 H 20 Blood Pressure 100/79 Pulse Oximetry 97 98 99 Oxygen Delivery BiPAP BiPAP Oxygen Flow Rate Fraction of Inspired Oxygen 04/18/24 20:00 04/18/24 20:00 04/18/24 20:00 Temperature 36.9 C Pulse Rate 70 72 Respiratory Rate 20 Blood Pressure 125/61 Pulse Oximetry 98 98 Oxygen Delivery BiPAP Oxygen Flow Rate Fraction of Inspired Oxygen 30 04/18/24 20:09 04/18/24 20:50 04/18/24 21:00 Temperature Pulse Rate 71 67 71 Respiratory Rate 20 22 H Blood Pressure Pulse Oximetry Oxygen Delivery Oxygen Flow Rate Fraction of Inspired Oxygen 04/18/24 21:00 04/18/24 22:04 04/19/24 00:00 Temperature Pulse Rate 68 Respiratory Rate 20 Blood Pressure Pulse Oximetry 100 91 98 Oxygen Delivery BiPAP Nasal Cannula Nasal Cannula Oxygen Flow Rate 4 4 Fraction of Inspired Oxygen 04/19/24 00:00 04/19/24 00:00 04/19/24 01:10 Temperature 36.7 C Pulse Rate 69 70 68 Respiratory Rate 17 22 H Blood Pressure 141/62 H Pulse Oximetry 98 94 Oxygen Delivery BiPAP Oxygen Flow Rate Fraction of Inspired Oxygen 04/19/24 02:22 04/19/24 02:22 04/19/24 03:49 Temperature Pulse Rate 71 69 138 H Respiratory Rate 20 21 H Blood Pressure 117/74 Pulse Oximetry 94 Oxygen Delivery BiPAP Oxygen Flow Rate Fraction of Inspired Oxygen 04/19/24 03:53 04/19/24 04:00 04/19/24 04:00 Temperature 36.7 C Pulse Rate 133 H 119 H Respiratory Rate 15 Blood Pressure 134/112 H 93/76 L Pulse Oximetry 100 100 Oxygen Delivery Nasal Cannula Oxygen Flow Rate 3 Fraction of Inspired Oxygen 04/19/24 04:00 04/19/24 04:04 04/19/24 04:05 Temperature Pulse Rate 84 94 80 Respiratory Rate Blood Pressure 93/76 L 93/76 L Pulse Oximetry Oxygen Delivery Oxygen Flow Rate Fraction of Inspired Oxygen 04/19/24 04:50 04/19/24 06:00 04/19/24 06:00 Temperature 36.5 C Pulse Rate 68 65 65 Respiratory Rate 22 H 19 Blood Pressure 128/58 L 128/58 L Pulse Oximetry 96 97 Oxygen Delivery BiPAP Oxygen Flow Rate Fraction of Inspired Oxygen 04/19/24 07:37 04/19/24 07:37 04/19/24 07:50 Temperature Pulse Rate 66 67 Respiratory Rate 20 18 Blood Pressure Pulse Oximetry 97 Oxygen Delivery Nasal Cannula Oxygen Flow Rate 3 Fraction of Inspired Oxygen 04/19/24 08:00 04/19/24 08:00 04/19/24 08:00 Temperature 36.6 C Pulse Rate 71 71 71 Respiratory Rate 21 H 21 H Blood Pressure 126/51 L Pulse Oximetry 99 99 Oxygen Delivery Nasal Cannula Oxygen Flow Rate 3 Fraction of Inspired Oxygen 04/19/24 08:38 04/19/24 10:06 04/19/24 10:22 Temperature Pulse Rate 71 63 62 Respiratory Rate Blood Pressure 107/50 L 106/50 L Pulse Oximetry Oxygen Delivery Oxygen Flow Rate Fraction of Inspired Oxygen Intake/Output Intake/Output: Intake & Output 04/16/24 04/17/24 04/18/24 04/19/24 23:59 23:59 23:59 23:59 Intake Total 2068 764.2 584.9 1399.5 Output Total 550 300 Balance 2068 764.2 34.9 1099.5 Meds/Results Medications: Active Medications Generic Name Dose Route Start Last Admin Trade Name Freq PRN Reason Stop Dose Admin Acetaminophen 650 mg 04/15/24 21:02 Acetaminophen 325 Mg Tablet PO Q6H PRN Mild Pain (1-3) or Fever Hydrocodone Bitart/Acetaminophen 1 tab 04/15/24 19:35 04/19/24 08:38 Hydrocodone/Acetaminophen (*Crx) 5-325 Mg Tablet PO 1 tab Q4H PRN Administration Pain Rated 4-6 Albuterol/Ipratropium 3 ml 04/16/24 14:00 04/19/24 07:33 Ipratropium 0.5 Mg/Albuterol Sulfate 2.5 Mg Ampul.Neb 3 Ml INHALATION 3 ml Q6HRT GUILLERMO Administration Budesonide 0.5 mg 04/18/24 20:00 04/19/24 07:33 Budesonide Respule Neb 0.5 Mg/2 Ml Amp INHALATION 0.5 mg Q12HRT GUILLERMO Administration Heparin Sodium (Porcine) 4,500 units 04/17/24 14:56 Heparin Sodium 5,000 Units/Ml Vial IV PUSH PRN PRN aPTT less than 55 seconds Heparin Sodium (Porcine) 2,000 units 04/17/24 14:56 Heparin Sodium 5,000 Units/Ml Vial IV PUSH PRN PRN aPTT 55 - 70 seconds Piperacillin/Tazobactam/Dextrose 3.375 gm in 50 mls @ 100 mls/hr 04/16/24 11:00 04/19/24 05:33 Zosyn 3.375 Gm/Ns 50 Ml IVPB Infused Q6HR GUILLERMO Infusion Heparin Sodium/Dextrose 25,000 units in 250 mls @ 0 mls/hr 04/18/24 02:25 04/19/24 06:00 Heparin Sodium/D5w 100 Units/Ml IV CONT 0 units/hr .Q0M GUILLERMO 0 mls/hr Titration Protocol Dextrose/Sodium Chloride 1,000 mls @ 70 mls/hr 04/18/24 13:25 04/19/24 08:45 Dextrose 5% Sodium Chloride 0.45% IV CONT 0 mls/hr .[id number] GUILLERMO Infusion Doxycycline Hyclate 100 mg in 100 mls @ 100 mls/hr 04/18/24 17:00 04/19/24 05:00 Vibramycin 100 Mg/Ns 100 Ml IVPB 04/23/24 05:59 Infused Q12H GUILLERMO Infusion Lisinopril 5 mg 04/16/24 09:00 04/19/24 08:38 Lisinopril 5 Mg Tablet PO 5 mg QAM GUILLERMO Administration Methylprednisolone Sodium Succinate 20 mg 04/18/24 18:00 04/19/24 05:03 Methylprednisolone Sod Succ 40 Mg Vial IV PUSH 20 mg Q6HR GUILLERMO Administration Metoprolol Tartrate 12.5 mg 04/17/24 21:00 04/19/24 08:38 Metoprolol Tartrate 12.5 Mg Tablet PO 12.5 mg Q12HR GUILLERMO Administration Morphine Sulfate 2 mg 04/18/24 04:30 04/19/24 06:58 Morphine Sulfate (*Crx) 4 Mg/Ml Inj IV PUSH 2 mg Q4H PRN Administration Pain Rated 7-10 Sodium Chloride 6 ml 04/16/24 13:00 04/19/24 07:33 Sodium Chlor 3% 15 Ml Neb (Respiratory Therapy) INHALATION 6 ml TID GUILLERMO Administration Radiology Results: ITS Impressions Head CT 04/18/24 05:22 Impression: No intracranial abnormality seen. Left maxillary sinus disease. Chest X-Ray 04/19/24 06:25 Impression: [id number] right pleural effusion. Pulmonary artery hypertension versus central venous congestive change. Stable calcified left basilar pulmonary nodule. Labs Labs: Laboratory Results - last 24 hr 04/18/24 04/18/24 04/18/24 04:36 11:55 14:01 WBC RBC Hgb Hct MCV MCH MCHC RDW Plt Count MPV Immature Gran % (Auto) Neut % (Auto) Lymph % (Auto) [place] % (Auto) Eos % (Auto) Baso % (Auto) Lymph # (Auto) [place] # (Auto) Eos # (Auto) Baso # (Auto) Abs Immat Gran (auto) Absolute Neuts (auto) Absolute Nucleated RBC Nucleated RBC % APTT Puncture Site ABG pH ABG pCO2 ABG pO2 ABG PO2/FiO2 Ratio ABG HCO3 ABG O2 Saturation ABG O2 Content ABG Base Excess A-a Gradient Oxyhemoglobin Total Hemoglobin O2 Delivery Device O2 Liters/Min FiO2 Expiratory Pressure 8 Inspiratory Pressure 20 Sodium Potassium Chloride Carbon Dioxide Anion Gap BUN Creatinine Estim Creat Clear Calc Estimated GFR Glucose POC Capillary Glucose 134 H Calcium Magnesium Total Bilirubin AST ALT Alkaline Phosphatase Lactate Dehydrogenase Total Protein Albumin Vancomycin Trough 6.6 L 04/18/24 04/18/24 04/18/24 15:14 20:04 22:13 WBC RBC Hgb Hct MCV MCH MCHC RDW Plt Count MPV Immature Gran % (Auto) Neut % (Auto) Lymph % (Auto) [place] % (Auto) Eos % (Auto) Baso % (Auto) Lymph # (Auto) [place] # (Auto) Eos # (Auto) Baso # (Auto) Abs Immat Gran (auto) Absolute Neuts (auto) Absolute Nucleated RBC Nucleated RBC % APTT 82.3 H 121.0 H Puncture Site ABG pH ABG pCO2 ABG pO2 ABG PO2/FiO2 Ratio ABG HCO3 ABG O2 Saturation ABG O2 Content ABG Base Excess A-a Gradient Oxyhemoglobin Total Hemoglobin O2 Delivery Device O2 Liters/Min FiO2 Expiratory Pressure Inspiratory Pressure Sodium Potassium Chloride Carbon Dioxide Anion Gap BUN Creatinine Estim Creat Clear Calc Estimated GFR Glucose POC Capillary Glucose 135 H Calcium Magnesium Total Bilirubin AST ALT Alkaline Phosphatase Lactate Dehydrogenase 178 Total Protein 7.0 Albumin Vancomycin Trough 04/18/24 04/19/24 04/19/24 23:07 03:36 04:31 WBC 5.7 RBC 3.73 L Hgb 10.8 L Hct 36.0 L MCV 96.5 MCH 29.0 MCHC 30.0 L RDW 14.9 H Plt Count 334 MPV 8.6 Immature Gran % (Auto) 0.2 Neut % (Auto) 77.7 H Lymph % (Auto) 13.6 L [place] % (Auto) 8.5 Eos % (Auto) 0.0 Baso % (Auto) 0.0 L Lymph # (Auto) 0.78 L [place] # (Auto) 0.5 Eos # (Auto) 0.0 Baso # (Auto) 0.0 Abs Immat Gran (auto) 0.01 Absolute Neuts (auto) 4.5 Absolute Nucleated RBC 0.000 Nucleated RBC % 0.0 APTT Puncture Site ABG pH ABG pCO2 ABG pO2 ABG PO2/FiO2 Ratio ABG HCO3 ABG O2 Saturation ABG O2 Content ABG Base Excess A-a Gradient Oxyhemoglobin Total Hemoglobin O2 Delivery Device O2 Liters/Min FiO2 Expiratory Pressure Inspiratory Pressure Sodium 136 L Potassium 3.9 Chloride 97 L Carbon Dioxide 33 H Anion Gap 6 BUN 32 H Creatinine 0.62 L Estim Creat Clear Calc 41 Estimated GFR > 60 Glucose 186 H POC Capillary Glucose 161 H 154 H Calcium 8.4 Magnesium 2.2 Total Bilirubin 0.4 AST 35 ALT 18 Alkaline Phosphatase 51 Lactate Dehydrogenase 174 Total Protein 7.0 Albumin Vancomycin Trough 04/19/24 04/19/24 04/19/24 04:31 04:37 08:46 WBC RBC Hgb Hct MCV MCH MCHC RDW Plt Count MPV Immature Gran % (Auto) Neut % (Auto) Lymph % (Auto) [place] % (Auto) Eos % (Auto) Baso % (Auto) Lymph # (Auto) [place] # (Auto) Eos # (Auto) Baso # (Auto) Abs Immat Gran (auto) Absolute Neuts (auto) Absolute Nucleated RBC Nucleated RBC % APTT Puncture Site Right brachial ABG pH 7.310 L ABG pCO2 53.6 H ABG pO2 78.6 L ABG PO2/FiO2 Ratio 2.46 ABG HCO3 26.4 H ABG O2 Saturation 94.4 L ABG O2 Content 15.6 L ABG Base Excess -0.5 A-a Gradient 86.9 Oxyhemoglobin 94.5 Total Hemoglobin 11.7 L O2 Delivery Device Nasal cannula O2 Liters/Min 3.0 FiO2 32 Expiratory Pressure Inspiratory Pressure Sodium Potassium Chloride Carbon Dioxide Anion Gap BUN Creatinine Estim Creat Clear Calc Estimated GFR Glucose POC Capillary Glucose 174 H Calcium Magnesium Total Bilirubin AST ALT Alkaline Phosphatase Lactate Dehydrogenase Total Protein 7.0 Albumin 3.3 L Vancomycin Trough
[2024-04-19 11:37] LABS: Glucose Point of Care 145 mg/dl (65-105)
--- NOTE | 2024-04-19 11:42 | P.PNIM_ITS ---
Progress Note: A&P Assessment and Plan (1) Collapse of right lung: Code(s): J98.11 - Atelectasis Status: Acute Assessment and Plan: - CXR (04/15): Small right pleural effusion and collapse of the right middle and lower lobes. On the prior CT there appears to be a low-density region centrally within the collapsed right lower lobe which raises suspicion for either necrotic malignancy or infection with pulmonary abscess. Could consider diagnostic thoracentesis although the amount of fluid on prior CT appears relatively small. Would also consider further evaluation with bronchoscopy as there is occlusion of the bronchus intermedius on the prior CT. - CT chest (04/13): 1. Moderate right pleural effusion, possibly loculated. 2: Small pericardial effusion. - Sa02 93% on 2 liters nasal cannula. Currently on doxycycline and Zosyn which will be continued Patient has CPT ordered Patient is refusing to wear BiPAP Thoracentesis was planned initially. See below (2) COPD (chronic obstructive pulmonary disease): Qualifiers: COPD type: unspecified COPD Qualified Code(s): J44.9 - Chronic obstructive pulmonary disease, unspecified Code(s): J44.9 - Chronic obstructive pulmonary disease, unspecified Status: Acute Assessment and Plan: Duonebs, steroids (3) T12 burst fracture: Code(s): S22.081A - Stable burst fracture of T11-T12 vertebra, initial encounter for closed fracture Status: Chronic Assessment and Plan: * Pain control * PT/OT (4) Hypertension: Code(s): I10 - Essential (primary) hypertension Status: Acute Assessment and Plan: * Continue Lisinopril 5 mg PO daily and Metoprolol 25 mg PO qam. * Current blood pressure is 132/56. (5) Atrial fibrillation with RVR: Code(s): I48.91 - Unspecified atrial fibrillation Status: Acute Assessment and Plan: Patient was started on amiodarone infusion but patient is now in sinus bradycardia. I will discontinue amiodarone infusion Heparin as been stopped due to planned thoracentesis (6) NSTEMI (non-ST elevated myocardial infarction): Code(s): I21.4 - Non-ST elevation (NSTEMI) myocardial infarction Status: Acute Assessment and Plan: Patient had elevated troponin likely secondary to AFib with RVR and respiratory failure Evaluated by Cardiology and was planned to do a cardiac catheterization in future once patient's acute issues are resolved Plan The patient for while has been telling her family that she does not on any aggressive medical management, procedures or treatment. She is currently DNR. They did entertain hospice at the independent living facility. Daughter states that she was told that thoracentesis will help her breathing. She also agrees that patient does not like to wear BiPAP. Both patient's daughter NG who is her POA and her were at bedside and I spoke to them. I went over patient's current medical issues including COPD with hypercarbic respiratory failure, patient's refusal to wear BiPAP, moderate to possibly loculated right pleural effusion with collapse of right base of lung, AFib with RVR which has now converted to sinus rhythm, nonsustained, anticoagulation with this risks and benefits. Patient has been adamant since her admission that she does not want to be in the hospital. She does not want any aggressive workup or treatment. No surgeries or procedures. Patient's daughter agreed the patient would not want a chest tube or surgery indications she has empyema. She also does not believe the patient would want cardiac catheterization. She states the patient's wishes are consistent with conservative management this time including treatment of pain and agitation. I discussed option of hospice. They are willing to discuss with hospice service and healthcare administrative assistant regarding the options as they all are in agreement that conservative management with no invasive procedure or treatment with focus on comfort and pain control his the way to go at this point considering her age, medical issues and patient's wishes. I have requested healthcare administrative assistant to meet with patient's daughter and provide additional information regarding hospice services. Meanwhile I have discontinued heparin infusion along with amiodarone infusion. I will also cancel thoracentesis. I will continue steroid antibiotics and bronchodilators at this time. Diet: Regular GI Prophylaxis: Not currently indicated DVT Prophylaxis: Not currently indicated Lines: Peripheral Code Status: DNR Subjective Date/time seen: 04/19/24 Patient is awake alert but not fully oriented. She denies any complaints and states he feels good. She denies any pain shortness a breath nausea vomiting abdominal pain. She is in sinus rhythm. Continues to be on amiodarone infusion. Heparin drip is on hold. She is afebrile and on room air. She refused to wear BiPAP overnight Interval history: 88-year-old with a history of hypertension, pulmonary hypertension, COPD. The patient presented to the hospital 04/15/2024 with weakness. White blood cell count was 8.3, creatinine 0.59. BNP 1420. MRSA swab negative, COVID, influenza and RSV swab negative. CT scan of the chest on 04/13 showed a moderate right pleural effusion with small pericardial effusion, Low-density central region with collapse of the right lower lobe. chest x-ray on 04/15 showed right pleural effusion with collapse of the right middle lobe and lower lobe. Patient was admitted to the hospital and started on antibiotics. On 04/17/2024 a rapid response was called for hypoxemic and hypercarbic respiratory failure with a blood gas on 4 L 7.28/71/161. Patient was placed on BiPAP 16/6 with blood gas 7.28/63/74. Patient was placed on BiPAP 20/8 with an ABG of 7.30/69/84. Patient had intermittent episodes of confusion. Stat head CT with no intracranial abnormality. Echo 04/18/24: Summary 1. Left ventricular systolic function is normal, estimated at 50-55%. 2. There is moderately increased left ventricular wall thickness. 3. Left ventricular septal wall motion is abnormal with septal motion related to bundle branch block. 4. The left ventricular diastolic function is grade I diastolic dysfunction. 5. Left atrial chamber dimension is mildly enlarged. 6. There is mild aortic valve calcification. 7. There is trace tricuspid valve regurgitation. 8. No pulmonary hypertension, estimated pulmonary arterial systolic pressure is 28 mmHg. Right Ventricle Right ventricular chamber dimension is normal. Right ventricular systolic function is normal. Left Atria Left atrial chamber dimension is mildly enlarged. Right Atria Right atrial chamber dimension is normal. 04/13/2024: EXAMINATION: CT diagnostic chest wo con INDICATION: Abnormal chest x-ray TECHNIQUE: Computed tomography (CT) of the chest was performed without intravenous contrast. The dose-length product was 149.68 mGy-cm. Automated exposure control and iterative reconstruction technique were employed. COMPARISON: Chest x-ray dated 04/11/2019 FINDINGS: Small pericardial effusion. There is right pleural effusion which is may be loculated. There is evidence of chronic granulomatous disease with underlying compressive atelectasis in the right lung base. No endobronchial lesions. No pneumothorax. There is motion artifact limiting evaluation for subtle pulmonary nodules. No pneumothorax. There is a chronic burst fracture of T12. There is moderate thoracic spondylosis. Calcified granulomas of the spleen. IMPRESSION: 1. Moderate right pleural effusion, possibly loculated. 2: Small pericardial effusion. Review of Systems Review of Systems: All systems reviewed & are unremarkable except as noted in HPI and below Exam Narrative: General: Pt is alert awake and in NAD Lungs/Chest: Trachea central Clear BS B/L, No crackles or wheezing. Breath sounds are decreased on bases Cardiac: RRR. Normal S1 S2. No murmurs Circulation: Pedal pulses are intact and symmetrical. Abdomen: Normal bowel sounds.. Soft. NT. ND. Extremities: No clubbing, cyanosis or edema. Warm : Sims in place Neurologic: Follows commands. Moves all 4 extremities PERRL AO x2 Skin: No Rash Objective Data Vital Signs Vital Signs: Vital Signs - 24 hr 04/18/24 12:00 04/18/24 12:00 04/18/24 12:00 Temperature Pulse Rate 72 69 110 H Respiratory Rate 24 H 20 Blood Pressure 130/85 Pulse Oximetry 96 97 Oxygen Delivery BiPAP Oxygen Flow Rate Fraction of Inspired Oxygen 32 04/18/24 13:51 04/18/24 13:51 04/18/24 14:09 Temperature Pulse Rate 77 77 70 Respiratory Rate 26 H 26 H 27 H Blood Pressure Pulse Oximetry 96 Oxygen Delivery BiPAP Oxygen Flow Rate Fraction of Inspired Oxygen 04/18/24 16:00 04/18/24 16:00 04/18/24 16:00 Temperature Pulse Rate 73 110 H 110 H Respiratory Rate 26 H 18 Blood Pressure 100/79 Pulse Oximetry 96 97 Oxygen Delivery BiPAP Oxygen Flow Rate Fraction of Inspired Oxygen 32 04/18/24 16:25 04/18/24 17:48 04/18/24 20:00 Temperature 36.9 C Pulse Rate 71 69 70 Respiratory Rate 26 H 20 20 Blood Pressure 125/61 Pulse Oximetry 98 99 98 Oxygen Delivery BiPAP BiPAP Oxygen Flow Rate Fraction of Inspired Oxygen 04/18/24 20:00 04/18/24 20:00 04/18/24 20:09 Temperature Pulse Rate 72 71 Respiratory Rate Blood Pressure Pulse Oximetry 98 Oxygen Delivery BiPAP Oxygen Flow Rate Fraction of Inspired Oxygen 30 04/18/24 20:50 04/18/24 21:00 04/18/24 21:00 Temperature Pulse Rate 67 71 68 Respiratory Rate 20 22 H 20 Blood Pressure Pulse Oximetry 100 Oxygen Delivery BiPAP Oxygen Flow Rate Fraction of Inspired Oxygen 04/18/24 22:04 04/19/24 00:00 04/19/24 00:00 Temperature 36.7 C Pulse Rate 69 Respiratory Rate 17 Blood Pressure 141/62 H Pulse Oximetry 91 98 98 Oxygen Delivery Nasal Cannula Nasal Cannula Oxygen Flow Rate 4 4 Fraction of Inspired Oxygen 04/19/24 00:00 04/19/24 01:10 04/19/24 02:22 Temperature Pulse Rate 70 68 71 Respiratory Rate 22 H 20 Blood Pressure Pulse Oximetry 94 Oxygen Delivery BiPAP Oxygen Flow Rate Fraction of Inspired Oxygen 04/19/24 02:22 04/19/24 03:49 04/19/24 03:53 Temperature Pulse Rate 69 138 H 133 H Respiratory Rate 21 H Blood Pressure 117/74 134/112 H Pulse Oximetry 94 Oxygen Delivery BiPAP Oxygen Flow Rate Fraction of Inspired Oxygen 04/19/24 04:00 04/19/24 04:00 04/19/24 04:00 Temperature 36.7 C Pulse Rate 119 H 84 Respiratory Rate 15 Blood Pressure 93/76 L Pulse Oximetry 100 100 Oxygen Delivery Nasal Cannula Oxygen Flow Rate 3 Fraction of Inspired Oxygen 04/19/24 04:04 04/19/24 04:05 04/19/24 04:50 Temperature Pulse Rate 94 80 68 Respiratory Rate 22 H Blood Pressure 93/76 L 93/76 L Pulse Oximetry 96 Oxygen Delivery BiPAP Oxygen Flow Rate Fraction of Inspired Oxygen 04/19/24 06:00 04/19/24 06:00 04/19/24 07:37 Temperature 36.5 C Pulse Rate 65 65 Respiratory Rate 19 Blood Pressure 128/58 L 128/58 L Pulse Oximetry 97 97 Oxygen Delivery Nasal Cannula Oxygen Flow Rate 3 Fraction of Inspired Oxygen 04/19/24 07:37 04/19/24 07:50 04/19/24 08:00 Temperature Pulse Rate 66 67 71 Respiratory Rate 20 18 Blood Pressure Pulse Oximetry Oxygen Delivery Oxygen Flow Rate Fraction of Inspired Oxygen 04/19/24 08:00 04/19/24 08:00 04/19/24 08:38 Temperature 36.6 C Pulse Rate 71 71 71 Respiratory Rate 21 H 21 H Blood Pressure 126/51 L Pulse Oximetry 99 99 Oxygen Delivery Nasal Cannula Oxygen Flow Rate 3 Fraction of Inspired Oxygen 04/19/24 10:00 04/19/24 10:06 04/19/24 10:22 Temperature Pulse Rate 68 63 62 Respiratory Rate 16 Blood Pressure 107/50 L 107/50 L 106/50 L Pulse Oximetry 99 Oxygen Delivery Oxygen Flow Rate Fraction of Inspired Oxygen 04/19/24 10:50 Temperature Pulse Rate 59 L Respiratory Rate Blood Pressure 107/50 L Pulse Oximetry Oxygen Delivery Oxygen Flow Rate Fraction of Inspired Oxygen Intake/Output Intake/Output: Intake & Output 04/16/24 04/17/24 04/18/24 04/19/24 23:59 23:59 23:59 23:59 Intake Total 8 764.2 584.9 1407.3 Output Total 550 300 Balance 8 764.2 34.9 1107.3 Meds/Results Medications: Active Medications Generic Name Dose Route Start Last Admin Trade Name Freq PRN Reason Stop Dose Admin Acetaminophen 650 mg 04/15/24 21:02 Acetaminophen 325 Mg Tablet PO Q6H PRN Mild Pain (1-3) or Fever Hydrocodone Bitart/Acetaminophen 1 tab 04/15/24 19:35 04/19/24 08:38 Hydrocodone/Acetaminophen (*Crx) 5-325 Mg Tablet PO 1 tab Q4H PRN Administration Pain Rated 4-6 Budesonide 0.5 mg 04/18/24 20:00 04/19/24 07:33 Budesonide Respule Neb 0.5 Mg/2 Ml Amp INHALATION 0.5 mg Q12HRT GUILLERMO Administration Heparin Sodium (Porcine) 4,500 units 04/17/24 14:56 Heparin Sodium 5,000 Units/Ml Vial IV PUSH PRN PRN aPTT less than 55 seconds Heparin Sodium (Porcine) 2,000 units 04/17/24 14:56 Heparin Sodium 5,000 Units/Ml Vial IV PUSH PRN PRN aPTT 55 - 70 seconds Piperacillin/Tazobactam/Dextrose 3.375 gm in 50 mls @ 100 mls/hr 04/16/24 11:00 04/19/24 05:33 Zosyn 3.375 Gm/Ns 50 Ml IVPB Infused Q6HR GUILLERMO Infusion Heparin Sodium/Dextrose 25,000 units in 250 mls @ 0 mls/hr 04/18/24 02:25 04/19/24 10:00 Heparin Sodium/D5w 100 Units/Ml IV CONT 0 units/hr .Q0M GUILLERMO 0 mls/hr Titration Protocol Dextrose/Sodium Chloride 1,000 mls @ 70 mls/hr 04/18/24 13:25 04/19/24 08:45 Dextrose 5% Sodium Chloride 0.45% IV CONT 0 mls/hr .[id number] GUILLERMO Infusion Doxycycline Hyclate 100 mg in 100 mls @ 100 mls/hr 04/18/24 17:00 04/19/24 05:00 Vibramycin 100 Mg/Ns 100 Ml IVPB 04/23/24 05:59 Infused Q12H GUILLERMO Infusion Ipratropium [place] 0.5 mg 04/19/24 14:00 Ipratropium Br 0.02% Inh Soln 0.5 Mg/2.5 Ml Vial INHALATION Q6HRT GUILLERMO Lisinopril 5 mg 04/16/24 09:00 04/19/24 08:38 Lisinopril 5 Mg Tablet PO 5 mg QAM GUILLERMO Administration Metoprolol Tartrate 12.5 mg 04/17/24 21:00 04/19/24 08:38 Metoprolol Tartrate 12.5 Mg Tablet PO 12.5 mg Q12HR GUILLERMO Administration Morphine Sulfate 2 mg 04/18/24 04:30 04/19/24 06:58 Morphine Sulfate (*Crx) 4 Mg/Ml Inj IV PUSH 2 mg Q4H PRN Administration Pain Rated 7-10 Prednisone 40 mg 04/19/24 14:00 Prednisone 20 Mg Tablet PO DAILY@0800 GUILLERMO Sodium Chloride 6 ml 04/16/24 13:00 04/19/24 07:33 Sodium Chlor 3% 15 Ml Neb (Respiratory Therapy) INHALATION 6 ml TID GUILLERMO Administration Radiology Results: ITS Impressions Head CT 04/18/24 05:22 Impression: No intracranial abnormality seen. Left maxillary sinus disease. Chest X-Ray 04/19/24 06:25 Impression: [id number] right pleural effusion. Pulmonary artery hypertension versus central venous congestive change. Stable calcified left basilar pulmonary nodule. Labs Labs: Laboratory Results - last 24 hr 04/18/24 04/18/24 04/18/24 04:36 11:55 14:01 WBC RBC Hgb Hct MCV MCH MCHC RDW Plt Count MPV Immature Gran % (Auto) Neut % (Auto) Lymph % (Auto) [place] % (Auto) Eos % (Auto) Baso % (Auto) Lymph # (Auto) [place] # (Auto) Eos # (Auto) Baso # (Auto) Abs Immat Gran (auto) Absolute Neuts (auto) Absolute Nucleated RBC Nucleated RBC % APTT Puncture Site ABG pH ABG pCO2 ABG pO2 ABG PO2/FiO2 Ratio ABG HCO3 ABG O2 Saturation ABG O2 Content ABG Base Excess A-a Gradient Oxyhemoglobin Total Hemoglobin O2 Delivery Device O2 Liters/Min FiO2 Expiratory Pressure 8 Inspiratory Pressure 20 Sodium Potassium Chloride Carbon Dioxide Anion Gap BUN Creatinine Estim Creat Clear Calc Estimated GFR Glucose POC Capillary Glucose 134 H Calcium Magnesium Total Bilirubin AST ALT Alkaline Phosphatase Lactate Dehydrogenase Total Protein Albumin Vancomycin Trough 6.6 L 04/18/24 04/18/24 04/18/24 15:14 20:04 22:13 WBC RBC Hgb Hct MCV MCH MCHC RDW Plt Count MPV Immature Gran % (Auto) Neut % (Auto) Lymph % (Auto) [place] % (Auto) Eos % (Auto) Baso % (Auto) Lymph # (Auto) [place] # (Auto) Eos # (Auto) Baso # (Auto) Abs Immat Gran (auto) Absolute Neuts (auto) Absolute Nucleated RBC Nucleated RBC % APTT 82.3 H 121.0 H Puncture Site ABG pH ABG pCO2 ABG pO2 ABG PO2/FiO2 Ratio ABG HCO3 ABG O2 Saturation ABG O2 Content ABG Base Excess A-a Gradient Oxyhemoglobin Total Hemoglobin O2 Delivery Device O2 Liters/Min FiO2 Expiratory Pressure Inspiratory Pressure Sodium Potassium Chloride Carbon Dioxide Anion Gap BUN Creatinine Estim Creat Clear Calc Estimated GFR Glucose POC Capillary Glucose 135 H Calcium Magnesium Total Bilirubin AST ALT Alkaline Phosphatase Lactate Dehydrogenase 178 Total Protein 7.0 Albumin Vancomycin Trough 04/18/24 04/19/24 04/19/24 23:07 03:36 04:31 WBC 5.7 RBC 3.73 L Hgb 10.8 L Hct 36.0 L MCV 96.5 MCH 29.0 MCHC 30.0 L RDW 14.9 H Plt Count 334 MPV 8.6 Immature Gran % (Auto) 0.2 Neut % (Auto) 77.7 H Lymph % (Auto) 13.6 L [place] % (Auto) 8.5 Eos % (Auto) 0.0 Baso % (Auto) 0.0 L Lymph # (Auto) 0.78 L [place] # (Auto) 0.5 Eos # (Auto) 0.0 Baso # (Auto) 0.0 Abs Immat Gran (auto) 0.01 Absolute Neuts (auto) 4.5 Absolute Nucleated RBC 0.000 Nucleated RBC % 0.0 APTT Puncture Site ABG pH ABG pCO2 ABG pO2 ABG PO2/FiO2 Ratio ABG HCO3 ABG O2 Saturation ABG O2 Content ABG Base Excess A-a Gradient Oxyhemoglobin Total Hemoglobin O2 Delivery Device O2 Liters/Min FiO2 Expiratory Pressure Inspiratory Pressure Sodium 136 L Potassium 3.9 Chloride 97 L Carbon Dioxide 33 H Anion Gap 6 BUN 32 H Creatinine 0.62 L Estim Creat Clear Calc 41 Estimated GFR > 60 Glucose 186 H POC Capillary Glucose 161 H 154 H Calcium 8.4 Magnesium 2.2 Total Bilirubin 0.4 AST 35 ALT 18 Alkaline Phosphatase 51 Lactate Dehydrogenase 174 Total Protein 7.0 Albumin Vancomycin Trough 04/19/24 04/19/24 04/19/24 04:31 04:37 08:46 WBC RBC Hgb Hct MCV MCH MCHC RDW Plt Count MPV Immature Gran % (Auto) Neut % (Auto) Lymph % (Auto) [place] % (Auto) Eos % (Auto) Baso % (Auto) Lymph # (Auto) [place] # (Auto) Eos # (Auto) Baso # (Auto) Abs Immat Gran (auto) Absolute Neuts (auto) Absolute Nucleated RBC Nucleated RBC % APTT Puncture Site Right brachial ABG pH 7.310 L ABG pCO2 53.6 H ABG pO2 78.6 L ABG PO2/FiO2 Ratio 2.46 ABG HCO3 26.4 H ABG O2 Saturation 94.4 L ABG O2 Content 15.6 L ABG Base Excess -0.5 A-a Gradient 86.9 Oxyhemoglobin 94.5 Total Hemoglobin 11.7 L O2 Delivery Device Nasal cannula O2 Liters/Min 3.0 FiO2 32 Expiratory Pressure Inspiratory Pressure Sodium Potassium Chloride Carbon Dioxide Anion Gap BUN Creatinine Estim Creat Clear Calc Estimated GFR Glucose POC Capillary Glucose 174 H Calcium Magnesium Total Bilirubin AST ALT Alkaline Phosphatase Lactate Dehydrogenase Total Protein 7.0 Albumin 3.3 L Vancomycin Trough 04/19/24 11:32 WBC RBC Hgb Hct MCV MCH MCHC RDW Plt Count MPV Immature Gran % (Auto) Neut % (Auto) Lymph % (Auto) [place] % (Auto) Eos % (Auto) Baso % (Auto) Lymph # (Auto) [place] # (Auto) Eos # (Auto) Baso # (Auto) Abs Immat Gran (auto) Absolute Neuts (auto) Absolute Nucleated RBC Nucleated RBC % APTT Puncture Site ABG pH ABG pCO2 ABG pO2 ABG PO2/FiO2 Ratio ABG HCO3 ABG O2 Saturation ABG O2 Content ABG Base Excess A-a Gradient Oxyhemoglobin Total Hemoglobin O2 Delivery Device O2 Liters/Min FiO2 Expiratory Pressure Inspiratory Pressure Sodium Potassium Chloride Carbon Dioxide Anion Gap BUN Creatinine Estim Creat Clear Calc Estimated GFR Glucose POC Capillary Glucose 145 H Calcium Magnesium Total Bilirubin AST ALT Alkaline Phosphatase Lactate Dehydrogenase Total Protein Albumin Vancomycin Trough Quality VTE Prophylaxis VTE prophylaxis: mechanical ordered and pharmacologic ordered
[2024-04-19] MEDS: predniSONE 20 MG TABLET 40 MG PO (13:46)
--- NOTE | 2024-04-19 14:05 | P.PNCA_ITS ---
Progress Note: A&P Assessment and Plan (1) NSTEMI (non-ST elevated myocardial infarction): Code(s): I21.4 - Non-ST elevation (NSTEMI) myocardial infarction Status: Acute (2) Atrial fibrillation with RVR: Code(s): I48.91 - Unspecified atrial fibrillation Status: Acute (3) Hypertension: Code(s): I10 - Essential (primary) hypertension Status: Acute (4) COPD (chronic obstructive pulmonary disease): Qualifiers: COPD type: unspecified COPD Qualified Code(s): J44.9 - Chronic obstructive pulmonary disease, unspecified Code(s): J44.9 - Chronic obstructive pulmonary disease, unspecified Status: Acute (5) Collapse of right lung: Code(s): J98.11 - Atelectasis Status: Acute (6) Acute hypoxic respiratory failure: Code(s): J96.01 - Acute respiratory failure with hypoxia Status: Acute Plan 1. NSTEMI-most likely type 2 secondary to underlying pulmonary pathology versus type 1 given risk factors for coronary artery disease including age, smoking history, hypertension; low normal EF of 50-55% 2. Acute hypoxic respiratory failure 3. Right middle and lower lung collapse 4. BL pleural effusions 5. Hypertension 6. Pulmonary hypertension 7. Smoking history 8. COPD Plan: 1. Medical management for NSTEMI in the setting of ongoing acute pulmonary pathology, patient is not complaining of active chest pain, and no ST elevations on EKG 2. Start aspirin 81 mg daily 3. Add atorvastatin 40 mg daily 4. Continue metoprolol and lisinopril 5. TTE reviewed. Low normal LVEF of 50-55% with no RWMA 6. Plan for cardiac cath to evaluate for underlying CAD after she recovers from her acute illness 7. Management of other issues per primary team Subjective Date/time seen: 04/19/24 14:05 Interval history: 88-year-old female with past medical history of hypertension, burst fracture of T12, COPD, pulmonary hypertension, smoking history who was admitted with right lung collapse and hypoxia. Cardiology was consulted for chest pain and elevated troponin. Pertinent workup: Troponin: 0.039, 0.049 EKG: On April 17 showed AFib with RVR with rates in the 140s; EKG: On April 18 shows normal sinus rhythm and intraventricular conduction delay Chest x-ray: Small to moderate pleural effusions CT head: No acute intracranial abnormality TTE: Summary 1. Left ventricular systolic function is normal, estimated at 50-55%. 2. There is moderately increased left ventricular wall thickness. 3. Left ventricular septal wall motion is abnormal with septal motion related to bundle branch block. 4. The left ventricular diastolic function is grade I diastolic dysfunction. 5. Left atrial chamber dimension is mildly enlarged. 6. There is mild aortic valve calcification. 7. There is trace tricuspid valve regurgitation. 8. No pulmonary hypertension, estimated pulmonary arterial systolic pressure is 28 mmHg. Interval history: Patient denies any chest pain, shortness of breath, lightheadedness, dizziness. No nausea, emesis, abdominal pain. She is off positive pressure ventilation today. Review of Systems Review of Systems: A complete review of systems was performed and negative other than those mentioned in HPI Exam Narrative: General: Alert oriented x3, no acute distress Neck: Supple, JVD + Chest: Decreased breath sounds over the right middle and lower lobes, no rales or rhonchi Cardiac: S1, S2 +, regular rate, regular rhythm, no murmurs or rubs Extremities: Bilateral lower extremity edema 1+, no skin rash Neurologic: Alert and oriented x3, no focal neurological deficits Objective Data Vital Signs Vital Signs: Vital Signs - 24 hr 04/18/24 14:09 04/18/24 16:00 04/18/24 16:00 Temperature Pulse Rate 70 73 110 H Respiratory Rate 27 H 26 H Blood Pressure Pulse Oximetry 96 Oxygen Delivery BiPAP Oxygen Flow Rate Fraction of Inspired Oxygen 32 04/18/24 16:00 04/18/24 16:25 04/18/24 17:48 Temperature Pulse Rate 110 H 71 69 Respiratory Rate 18 26 H 20 Blood Pressure 100/79 Pulse Oximetry 97 98 99 Oxygen Delivery BiPAP BiPAP Oxygen Flow Rate Fraction of Inspired Oxygen 04/18/24 20:00 04/18/24 20:00 04/18/24 20:00 Temperature 36.9 C Pulse Rate 70 72 Respiratory Rate 20 Blood Pressure 125/61 Pulse Oximetry 98 98 Oxygen Delivery BiPAP Oxygen Flow Rate Fraction of Inspired Oxygen 30 04/18/24 20:09 04/18/24 20:50 04/18/24 21:00 Temperature Pulse Rate 71 67 71 Respiratory Rate 20 22 H Blood Pressure Pulse Oximetry Oxygen Delivery Oxygen Flow Rate Fraction of Inspired Oxygen 04/18/24 21:00 04/18/24 22:04 04/19/24 00:00 Temperature Pulse Rate 68 Respiratory Rate 20 Blood Pressure Pulse Oximetry 100 91 98 Oxygen Delivery BiPAP Nasal Cannula Nasal Cannula Oxygen Flow Rate 4 4 Fraction of Inspired Oxygen 04/19/24 00:00 04/19/24 00:00 04/19/24 01:10 Temperature 36.7 C Pulse Rate 69 70 68 Respiratory Rate 17 22 H Blood Pressure 141/62 H Pulse Oximetry 98 94 Oxygen Delivery BiPAP Oxygen Flow Rate Fraction of Inspired Oxygen 04/19/24 02:22 04/19/24 02:22 04/19/24 03:49 Temperature Pulse Rate 71 69 138 H Respiratory Rate 20 21 H Blood Pressure 117/74 Pulse Oximetry 94 Oxygen Delivery BiPAP Oxygen Flow Rate Fraction of Inspired Oxygen 04/19/24 03:53 04/19/24 04:00 04/19/24 04:00 Temperature 36.7 C Pulse Rate 133 H 119 H Respiratory Rate 15 Blood Pressure 134/112 H 93/76 L Pulse Oximetry 100 100 Oxygen Delivery Nasal Cannula Oxygen Flow Rate 3 Fraction of Inspired Oxygen 04/19/24 04:00 04/19/24 04:04 04/19/24 04:05 Temperature Pulse Rate 84 94 80 Respiratory Rate Blood Pressure 93/76 L 93/76 L Pulse Oximetry Oxygen Delivery Oxygen Flow Rate Fraction of Inspired Oxygen 04/19/24 04:50 04/19/24 06:00 04/19/24 06:00 Temperature 36.5 C Pulse Rate 68 65 65 Respiratory Rate 22 H 19 Blood Pressure 128/58 L 128/58 L Pulse Oximetry 96 97 Oxygen Delivery BiPAP Oxygen Flow Rate Fraction of Inspired Oxygen 04/19/24 07:37 04/19/24 07:37 04/19/24 07:50 Temperature Pulse Rate 66 67 Respiratory Rate 20 18 Blood Pressure Pulse Oximetry 97 Oxygen Delivery Nasal Cannula Oxygen Flow Rate 3 Fraction of Inspired Oxygen 04/19/24 08:00 04/19/24 08:00 04/19/24 08:00 Temperature 36.6 C Pulse Rate 71 71 71 Respiratory Rate 21 H 21 H Blood Pressure 126/51 L Pulse Oximetry 99 99 Oxygen Delivery Nasal Cannula Oxygen Flow Rate 3 Fraction of Inspired Oxygen 04/19/24 08:38 04/19/24 10:00 04/19/24 10:06 Temperature Pulse Rate 71 68 63 Respiratory Rate 16 Blood Pressure 107/50 L 107/50 L Pulse Oximetry 99 Oxygen Delivery Oxygen Flow Rate Fraction of Inspired Oxygen 04/19/24 10:22 04/19/24 10:50 04/19/24 12:00 Temperature Pulse Rate 62 59 L 64 Respiratory Rate 26 H Blood Pressure 106/50 L 107/50 L 113/53 L Pulse Oximetry 95 Oxygen Delivery Oxygen Flow Rate Fraction of Inspired Oxygen 04/19/24 12:00 04/19/24 12:00 Temperature Pulse Rate 61 62 Respiratory Rate 21 H Blood Pressure Pulse Oximetry 96 Oxygen Delivery Nasal Cannula Oxygen Flow Rate 4 Fraction of Inspired Oxygen Intake/Output Intake/Output: Intake & Output 04/16/24 04/17/24 04/18/24 04/19/24 23:59 23:59 23:59 23:59 Intake Total 8 764.2 584.9 1407.3 Output Total 550 300 Balance 8 764.2 34.9 1107.3 Meds/Results Medications: Active Medications Generic Name Dose Route Start Last Admin Trade Name Freq PRN Reason Stop Dose Admin Acetaminophen 650 mg 04/15/24 21:02 Acetaminophen 325 Mg Tablet PO Q6H PRN Mild Pain (1-3) or Fever Hydrocodone Bitart/Acetaminophen 1 tab 04/15/24 19:35 04/19/24 08:38 Hydrocodone/Acetaminophen (*Crx) 5-325 Mg Tablet PO 1 tab Q4H PRN Administration Pain Rated 4-6 Budesonide 0.5 mg 04/18/24 20:00 04/19/24 07:33 Budesonide Respule Neb 0.5 Mg/2 Ml Amp INHALATION 0.5 mg Q12HRT GUILLERMO Administration Piperacillin/Tazobactam/Dextrose 3.375 gm in 50 mls @ 100 mls/hr 04/16/24 11:00 04/19/24 12:55 Zosyn 3.375 Gm/Ns 50 Ml IVPB 100 mls/hr Q6HR GUILLERMO Administration Dextrose/Sodium Chloride 1,000 mls @ 70 mls/hr 04/18/24 13:25 04/19/24 08:45 Dextrose 5% Sodium Chloride 0.45% IV CONT 0 mls/hr .[id number] GUILLERMO Infusion Doxycycline Hyclate 100 mg in 100 mls @ 100 mls/hr 04/18/24 17:00 04/19/24 05:00 Vibramycin 100 Mg/Ns 100 Ml IVPB 04/23/24 05:59 Infused Q12H GUILLERMO Infusion Ipratropium [place] 0.5 mg 04/19/24 14:00 Ipratropium Br 0.02% Inh Soln 0.5 Mg/2.5 Ml Vial INHALATION Q6HRT GUILLERMO Lisinopril 5 mg 04/16/24 09:00 04/19/24 08:38 Lisinopril 5 Mg Tablet PO 5 mg QAM GUILLERMO Administration Metoprolol Tartrate 12.5 mg 04/17/24 21:00 04/19/24 08:38 Metoprolol Tartrate 12.5 Mg Tablet PO 12.5 mg Q12HR GUILLERMO Administration Morphine Sulfate 2 mg 04/18/24 04:30 04/19/24 06:58 Morphine Sulfate (*Crx) 4 Mg/Ml Inj IV PUSH 2 mg Q4H PRN Administration Pain Rated 7-10 Prednisone 40 mg 04/19/24 14:00 04/19/24 13:46 Prednisone 20 Mg Tablet PO 40 mg DAILY@0800 GUILLERMO Administration Sodium Chloride 6 ml 04/16/24 13:00 04/19/24 07:33 Sodium Chlor 3% 15 Ml Neb (Respiratory Therapy) INHALATION 6 ml TID GUILLERMO Administration Radiology Results: ITS Impressions Head CT 04/18/24 05:22 Impression: No intracranial abnormality seen. Left maxillary sinus disease. Chest X-Ray 04/19/24 06:25 Impression: [id number] right pleural effusion. Pulmonary artery hypertension versus central venous congestive change. Stable calcified left basilar pulmonary nodule. Labs Labs: Laboratory Results - last 24 hr 04/18/24 04/18/24 04/18/24 04:36 15:14 20:04 WBC RBC Hgb Hct MCV MCH MCHC RDW Plt Count MPV Immature Gran % (Auto) Neut % (Auto) Lymph % (Auto) [place] % (Auto) Eos % (Auto) Baso % (Auto) Lymph # (Auto) [place] # (Auto) Eos # (Auto) Baso # (Auto) Abs Immat Gran (auto) Absolute Neuts (auto) Absolute Nucleated RBC Nucleated RBC % APTT 82.3 H Puncture Site ABG pH ABG pCO2 ABG pO2 ABG PO2/FiO2 Ratio ABG HCO3 ABG O2 Saturation ABG O2 Content ABG Base Excess A-a Gradient Oxyhemoglobin Total Hemoglobin O2 Delivery Device O2 Liters/Min FiO2 Expiratory Pressure 8 Inspiratory Pressure 20 Sodium Potassium Chloride Carbon Dioxide Anion Gap BUN Creatinine Estim Creat Clear Calc Estimated GFR Glucose POC Capillary Glucose 135 H Calcium Magnesium Total Bilirubin AST ALT Alkaline Phosphatase Lactate Dehydrogenase 178 Total Protein 7.0 Albumin 04/18/24 04/18/24 04/19/24 22:13 23:07 03:36 WBC RBC Hgb Hct MCV MCH MCHC RDW Plt Count MPV Immature Gran % (Auto) Neut % (Auto) Lymph % (Auto) [place] % (Auto) Eos % (Auto) Baso % (Auto) Lymph # (Auto) [place] # (Auto) Eos # (Auto) Baso # (Auto) Abs Immat Gran (auto) Absolute Neuts (auto) Absolute Nucleated RBC Nucleated RBC % APTT 121.0 H Puncture Site ABG pH ABG pCO2 ABG pO2 ABG PO2/FiO2 Ratio ABG HCO3 ABG O2 Saturation ABG O2 Content ABG Base Excess A-a Gradient Oxyhemoglobin Total Hemoglobin O2 Delivery Device O2 Liters/Min FiO2 Expiratory Pressure Inspiratory Pressure Sodium Potassium Chloride Carbon Dioxide Anion Gap BUN Creatinine Estim Creat Clear Calc Estimated GFR Glucose POC Capillary Glucose 161 H 154 H Calcium Magnesium Total Bilirubin AST ALT Alkaline Phosphatase Lactate Dehydrogenase Total Protein Albumin 04/19/24 04/19/24 04/19/24 04:31 04:31 04:37 WBC 5.7 RBC 3.73 L Hgb 10.8 L Hct 36.0 L MCV 96.5 MCH 29.0 MCHC 30.0 L RDW 14.9 H Plt Count 334 MPV 8.6 Immature Gran % (Auto) 0.2 Neut % (Auto) 77.7 H Lymph % (Auto) 13.6 L [place] % (Auto) 8.5 Eos % (Auto) 0.0 Baso % (Auto) 0.0 L Lymph # (Auto) 0.78 L [place] # (Auto) 0.5 Eos # (Auto) 0.0 Baso # (Auto) 0.0 Abs Immat Gran (auto) 0.01 Absolute Neuts (auto) 4.5 Absolute Nucleated RBC 0.000 Nucleated RBC % 0.0 APTT Puncture Site Right brachial ABG pH 7.310 L ABG pCO2 53.6 H ABG pO2 78.6 L ABG PO2/FiO2 Ratio 2.46 ABG HCO3 26.4 H ABG O2 Saturation 94.4 L ABG O2 Content 15.6 L ABG Base Excess -0.5 A-a Gradient 86.9 Oxyhemoglobin 94.5 Total Hemoglobin 11.7 L O2 Delivery Device Nasal cannula O2 Liters/Min 3.0 FiO2 32 Expiratory Pressure Inspiratory Pressure Sodium 136 L Potassium 3.9 Chloride 97 L Carbon Dioxide 33 H Anion Gap 6 BUN 32 H Creatinine 0.62 L Estim Creat Clear Calc 41 Estimated GFR > 60 Glucose 186 H POC Capillary Glucose Calcium 8.4 Magnesium 2.2 Total Bilirubin 0.4 AST 35 ALT 18 Alkaline Phosphatase 51 Lactate Dehydrogenase 174 Total Protein 7.0 7.0 Albumin 3.3 L 04/19/24 04/19/24 08:46 11:32 WBC RBC Hgb Hct MCV MCH MCHC RDW Plt Count MPV Immature Gran % (Auto) Neut % (Auto) Lymph % (Auto) [place] % (Auto) Eos % (Auto) Baso % (Auto) Lymph # (Auto) [place] # (Auto) Eos # (Auto) Baso # (Auto) Abs Immat Gran (auto) Absolute Neuts (auto) Absolute Nucleated RBC Nucleated RBC % APTT Puncture Site ABG pH ABG pCO2 ABG pO2 ABG PO2/FiO2 Ratio ABG HCO3 ABG O2 Saturation ABG O2 Content ABG Base Excess A-a Gradient Oxyhemoglobin Total Hemoglobin O2 Delivery Device O2 Liters/Min FiO2 Expiratory Pressure Inspiratory Pressure Sodium Potassium Chloride Carbon Dioxide Anion Gap BUN Creatinine Estim Creat Clear Calc Estimated GFR Glucose POC Capillary Glucose 174 H 145 H Calcium Magnesium Total Bilirubin AST ALT Alkaline Phosphatase Lactate Dehydrogenase Total Protein Albumin
[2024-04-19] MEDS: IPRATROPIUM BR 0.02% INH SOLN 0.5 MG/2.5 ML VIAL INHALATION ×2 (14:32→19:19)
[2024-04-19 17:42] LABS: Glucose Point of Care 130 mg/dl (65-105)
--- NOTE | 2024-04-19 18:17 | PC.NURSE ---
Report given to KATY Johnson @ [id number]. All patient supplies, documentation, and equipment sent to [place] [id number]. Nathaly, Daughter, updated on new room assignment.
--- NOTE | 2024-04-19 18:40 | PC.NURSE ---
This patient, Mallory Harrell, was received from ICU on 04/19/24 at 1841. Patient/family oriented to unit policies and routines
[2024-04-19] MEDS: LORazepam INJ (*CRX) 2 MG/ML VIAL 0.25 MG IV PUSH (23:59)
[2024-04-20] VITALS (7 sets, daily range): BP systolic 163; BP diastolic 84; PULSE 61–113; RESP 16–18; TEMP 36.1; O2SAT 91–95
[2024-04-20] MEDS: IPRATROPIUM BR 0.02% INH SOLN 0.5 MG/2.5 ML VIAL INHALATION ×2 (01:36→07:20)
[2024-04-20] MEDS: MORPHINE SULFATE (*CRX) 4 MG/ML INJ 2 MG IV PUSH (01:55)
[2024-04-20] MEDS: DOXYCYCLINE 100 MG/NS 100 ML 100 MG/100 ML BAG IVPB (05:02)
[2024-04-20 05:06] LABS: Glucose Point of Care 130 mg/dl (65-105)
[2024-04-20] MEDS: PIPERACILLN/TAZ 3.375GM/NS50ML 3.375 GM/50 ML BAG IVPB ×2 (06:17)
[2024-04-20 06:50] LABS: Basophils Percent Auto 0.1 % (0.2-1.2); Hematocrit 43.7 % (37.0-47.0); Hemoglobin 12.4 g/dL (12.0-15.0); Immature Granulocyte Absolute 0.06 K/mm3 (0.00-0.031); Immature Granulocyte Percent A 0.4 % (0-0.5); Lymphocytes Absolute Auto 0.99 K/mm3 (0.9-3.2); Lymphocytes Percent Auto 7.4 % (18.3-44.2); Mean Corpuscular HGB Conc 28.4 g/dl (32-36); Mean Corpuscular Hemoglobin 28.7 pg (26-34); Mean Corpuscular Volume 101.2 fl (80-100); Mean Platelet Volume 8.5 fl (7.4-10.4); Monocytes Percent Auto 7.2 % (2.6-8.5); Neutrophils Absolute Auto 11.4 K/mm3 (1.3-6.7); Neutrophils Percent Auto 84.9 % (45.5-73.1); Platelet Count Result 478 k/mm3 (150-375); Red Blood Count 4.32 M/mm3 (4.2-5.4); Red Cell Distribution Width 15.5 % (11.5-14.5); White Blood Count 13.4 K/mm3 (4.5-10.0)
[2024-04-20 07:02] LABS: Alanine Aminotransferase 42 U/L (6-35); Albumin Level 3.6 g/dL (3.5-5.1); Alkaline Phosphatase 59 U/L (38-126); Anion Gap 7 mmol/L (4-12); Aspartate Amino Transferase 71 U/L (14-36); Bilirubin,Total 0.5 mg/dL (0.2-1.3); Blood Urea Nitrogen 36 mg/dL (7-17); Calcium 8.9 mg/dL (8.4-10.2); Carbon Dioxide 39 mmol/L (22-30); Chloride 97 mmol/L (98-107); Estimated CRCL calculation 25 ml/min; Estimated Glomerular Filt Rate 48; Glucose 211 mg/dL (65-110); Magnesium 2.3 mg/dL (1.6-2.3); Potassium 4.8 mmol/L (3.4-5.0); Sodium 143 mmol/L (137-145)
[2024-04-20] MEDS: BUDESONIDE RESPULE NEB 0.5 MG/2 ML AMP INHALATION (07:20)
[2024-04-20] MEDS: SODIUM CHLOR 3% 15 ML NEB (RESPIRATORY THERAPY) 6 ML INHALATION (07:20)
[2024-04-20 07:31] LABS: Anisocytosis 1+; Hypochromasia 1+; Platelet Estimate Increased (Adequate); Schistocytes None Seen
--- NOTE | 2024-04-20 12:05 | PM.DS ---
DS: Admitting Diagnosis Discharge Date 04/20/24 Admitting Diagnosis Weakness DS: Discharge Diagnosis Discharge Diagnosis (1) Collapse of right lung: Code(s): J98.11 - Atelectasis Status: Acute DS: Summary Hospital Course Hospital Course: 88 y/o F presents here with intermittent weakness with PMH of COPD, insomnia, hypertension, pulmonary hypertension, and vitamin B12 deficiency. The patient presents here from [facility] with intermittent weakness. Symptoms have been ongoing for the past week. Weakness is accompanied by hypoxia, intermittent right sided chest pain, and cough that has scant production. She alerted the staff to her symptoms and her vital signs were checked. Patient was noted to be hypoxic and prompting the patient to be sent to the emergency department. She has no previous O2 requirement. Of note, the patient had a CT of the chest done on 04/13 which showed a moderate right pleural effusion that is possibly loculated and a small pericardial effusion. Initial VS at presentation: 97.8? F, HR 98, RR 16, 159/64, and 85% on room air. ED workup showed: No leukocytosis, no anemia, platelet count 436, creatinine 0.59 and GFR >60, glucose 130, CRP 3.8, lactic 1.5, procalcitonin 0.1, and viral PCR negative. CXR showed a small right pleural effusion and collapse of the right middle and lower lobes. On the prior CT there appears to be a low-density region centrally within the collapsed right lower lobe which raises suspicion for either necrotic malignancy or infection with pulmonary abscess. Could consider diagnostic thoracentesis although the amount of fluid on prior CT appears relatively small. Would also consider further evaluation with bronchoscopy as there is occlusion of the bronchus intermedius on the prior CT. patient was initially admitted to ICU, cardiology and pulmonology was consulted. However patient eventually stated she does not want any interventions except for medication treatment. Patient however placed medical treatment for NSTEMI and braoad spectrum antibiotics. She however, decided transition to comfort care. [place] care was instituted and patient is now discharged to Hospice facility. Family were all in agreement. Time Spent with Patient Time attestation: Total time spent providing and/or coordinating discharge services: DS: Data Data Completed and Pending Labs on day of discharge: Labs from last 24 hours 01/22/25 01/21/25 01/21/25 06:41 21:22 17:37 WBC 13.4 H RBC 4.32 Hgb 12.4 Hct 43.7 MCV 101.2 H MCH 28.7 MCHC 28.4 L RDW 15.5 H Plt Count 478 H MPV 8.5 Immature Gran % (Auto) 0.4 Neut % (Auto) 84.9 H Lymph % (Auto) 7.4 L [place] % (Auto) 7.2 Eos % (Auto) 0.0 Baso % (Auto) 0.1 L Lymph # (Auto) 0.99 [place] # (Auto) 1.0 H Eos # (Auto) 0.0 Baso # (Auto) 0.0 Abs Immat Gran (auto) 0.06 H Absolute Neuts (auto) 11.4 H Absolute Nucleated RBC 0.000 Nucleated RBC % 0.0 Platelet Estimate Increased Hypochromasia 1+ Anisocytosis 1+ Schistocytes None seen Sodium 143 Potassium 4.8 Chloride 97 L Carbon Dioxide 39 H Anion Gap 7 BUN 36 H Creatinine 1.07 H Estim Creat Clear Calc 25 Estimated GFR 48 L Glucose 211 H POC Capillary Glucose 130 H 130 H Calcium 8.9 Magnesium 2.3 Total Bilirubin 0.5 AST 71 H ALT 42 H Alkaline Phosphatase 59 Total Protein 7.0 Albumin 3.6 Preliminary micro results at discharge 04/15/24 16:15 Blood Culture - Preliminary Blood 04/15/24 16:24 Blood Culture - Preliminary Blood Discharge Plan Discharge Attending physician on discharge: Licha Mcgarry Consulting providers: Roger Yousif; Yves Pack Discharging Clinician: Licha Mcgarry Anticipated Discharge Date/Time: 04/20/24 12:02 Patient Disposition: Hospice - Medical Facility Activity: as tolerated Diet: as tolerated Patient Instructions: A-fib (Atrial Fibrillation) (DC) Patient Language: Tamazight Stand Alone Forms: General Discharge Information Discharge Medications: Continued colestipol [Colestid] 5 gram granules 5 g PO DAILY Qty: 500 0RF lisinopril 5 mg tablet 5 mg PO DAILY metoprolol succinate 25 mg tablet extended release 24 hr 25 mg PO DAILY diphenoxylate-atropine [Lomotil] 2.5-0.025 mg tablet 1 tablet PO TID PRN (Reason: diarrhea) Qty: 20 0RF albuterol sulfate 90 mcg/actuation HFA aerosol inhaler See Rx Instructions .ROUTE .COMPLEX Qty: 9 0RF Dose Instruction: INHALE 1 PUFF BY MOUTH EVERY 4 HOURS NEEDED FOR SHORTNESS OF BREATH OR WHEEZING Rx Instructions: INHALE 1 PUFF BY MOUTH EVERY 4 HOURS NEEDED FOR SHORTNESS OF BREATH OR WHEEZING meloxicam 15 mg tablet 15 mg PO DAILY Qty: 30 2RF mecobalamin (vitamin B12) 1,000 mcg tablet,disintegrating 1,000 mcg sublingual DAILY Qty: 90 0RF Rx Instructions: place tablet under tongue and allow to dissolve for at least30 secs before swallowing trazodone 50 mg tablet See Rx Instructions PO .HS Qty: 60 2RF Rx Instructions: 1-2 tablets PO .HS; Breztri Aerosphere 160-9-4.8 mcg/actuation HFA aerosol inhaler 2 inh inhalation BID Qty: 10.7 0RF Date of admission: 04/17/24 09:42 Primary Care Provider: Chung Tomlinson Admitting Provider: Satinder Willson Attending physician on admission: Satinder Willson Condition: Guarded Prognosis
--- NOTE | 2024-04-20 12:50 | PC.NURSE ---
Multiple attempts to give report to [facility]. Family aware of discharge today to return to [facility] hosp[facility]
[2024-04-20 12:54] LABS: SARS-CoV-2 RNA PCR Negative (Negative)
== END 2024-04-20 12:52 | disposition hospice, inpatient (51) | DRG 205 ==
LOC: ANHED 17:24 → ANH3MEDSUR 20:29 → ANHICU 04-18 01:32 → ANH3MED 04-19 18:32
PROVIDERS: Emergency Medicine; Internal Medicine; Internal Medicine Pulmonary Disease; Nurse Practitioner Family; Physician Assistant; Admitting Provider General Practice; Emergency Provider Physician Assistant; PCP Family Medicine; Visit Provider Internal Medicine
DX: J98.11 Atelectasis (principal); I21.4 Non-ST elevation (NSTEMI) myocardial infarction; J96.01 Acute respiratory failure with hypoxia; J96.02 Acute respiratory failure with hypercapnia; J90 Pleural effusion, not elsewhere classified; I31.39 Other pericardial effusion (noninflammatory); J44.9 Chronic obstructive pulmonary disease, unspecified; I10 Essential (primary) hypertension; I48.0 Paroxysmal atrial fibrillation; E53.8 Deficiency of other specified B group vitamins; F17.210 Nicotine dependence, cigarettes, uncomplicated; S22.081D Stable burst fracture of T11-T12 vertebra, subsequent encounter for fracture with routine healing; X58.XXXD Exposure to other specified factors, subsequent encounter; Z51.5 Encounter for palliative care; Z66 Do not resuscitate
CPT/HCPCS: 36415; 36600; 70450; 71045; 71046; 80048; 80053; 80202; 81001; 82375; 82805; 82948; 83050; 83605; 83615; 83735; 83880; 84145; 84155; 84484; 85018; 85025; 85610; 85730; 86140; 87040; 87635; 87637; 87641; 93005; 94002; 94003; 94640; 94667; 94668; 96365; 96366; 96375; 97165; 99285; A9270; C8929; G0378; J0282; J1644; J2060; J2270; J2543; J2919; J3370; J7030; J7512; Q9957